=== PATIENT | female | born 1935 | race Caucasian/White ===

== ENCOUNTER 2016-06-25 11:47 | Inpatient (IN) | payer OTHER ==
[2016-06-25] MEDS ORDERED: LOPRESSOR IVP STA (11:59)
[2016-06-25] MEDS ORDERED: SOLU-MEDROL 125 MG 250 MG in SODIUM CHLORIDE 50 ML IV ONE (11:59)
[2016-06-25] MEDS ORDERED: SOLU-MEDROL 125 MG ONE (12:03)
[2016-06-25] MEDS ORDERED: SOLU-MEDROL 125 MG IVP STA (12:12)
[2016-06-25 12:13] LABS: BASOPHILS % (AUTO) 0.2 % (0.0-3.0); HEMATOCRIT 34.1 % (37.0-47.0); HEMOGLOBIN 11.5 g/dl (12.0-16.0); IMMATURE GRANULOCYTE % (AUTO) 0.6 % (0.0-5.0); LYMPHOCYTES % (AUTO) 5.8 (10.0-50.0); MEAN CORPUSCULAR HEMOGLOBIN 29.4 pg (27.0-31.0); MEAN CORPUSCULAR HGB CONC 33.7 (31.8-35.4); MEAN CORPUSCULAR VOLUME 87.2 fl (81.0-99.0); MONOCYTES # (AUTO) 1.7 K/uL (0.4-2.0); NEUTROPHILS # (AUTO) 13.8 K/ul (2.0-6.9); NEUTROPHILS % (AUTO) 83.4; PLATELET COUNT 292 10^3/uL (140-440); RED BLOOD COUNT 3.91 10^6/ul (4.20-5.40); WHITE BLOOD COUNT 16.52 K/ul (4.6-10.2)
--- NOTE | 2016-06-25 12:22 | DI ---
EXAM: Single view of the chest. History: Short of breath Comparison: Chest radiograph 04/20/2016 Findings: Heart is mildly enlarged. Atherosclerotic vascular calcifications. No definite acute in filtrates. No appreciable pleural fluid and no pneumothorax. No acute osseous abnormalities. Impression: Mild cardiomegaly without acute disease in the chest.
[2016-06-25 12:38] LABS: PARTIAL THROMBOPLASTIN TIME 31.1 SEC (23.9-40.0); PROTHROMBIN TIME 11.4 SEC (9.3-11.0)
[2016-06-25 12:52] LABS: ALBUMIN 3.5 g/dL (3.4-5.0); ALBUMIN/GLOBULIN RATIO 0.83; ANION GAP 18.1; BILIRUBIN,TOTAL 0.95 mg/dL (0.00-1.20); BUN/CREATININE RATIO 16.98; CALCIUM 10.8 mg/dL (8.2-10.2); CREATININE 1.59 mg/dL (0.60-1.30); POTASSIUM 4.1 mmol/L (3.5-5.10); TOTAL PROTEIN 7.7 g/dL (5.8-8.1); TROPONIN I 0.024 ng/ml (0.0000-0.4000)
--- NOTE | 2016-06-25 14:06 | ED.PDOC ---
General ED Provider: Dr. ARIN FRIEDMAN Chief Complaint: Shortness of Air Stated Complaint: palpitation Time Seen by Physician: 11:52 Mode of Arrival: Ambulance Information Source: Patient, EMT Exam Limitations: No limitations Primary Care Provider: PITER OSMAN Nursing and Triage Documentation Reviewed and Agree: Yes Cardiovascular Complaint Exam - Palpitations Complaint/Exam Onset/Duration: 1 day Symptoms Are: Still present Timing: Constant Initial Severity: Moderate Current Severity: Moderate Character: Reports: Fast, Irregular Aggravating: Reports: Exertion, Rest, Position Alleviating: Reports: Rest Associated Signs and Symptoms: Reports: Lightheadedness, Shortness of breath. Denies: Dizziness, Syncope, Chest pain, Diaphoresis, Nausea, Vomiting Related History: Similar episode Cardiac Risk Factors: Reports: Diabetes, CAD Pulmonary Embolism Risk Factors: Reports: Bedrest Thyroid Exam: Normal Differential Diagnoses: CAD, CHF, Hypoxia, Paroxysmal SVT Quality Indicators for AMI: EKG in 10min. Quality Indicators for Cardiac Chest Pain: EKG in 10min. Quality Indicator For Non-Traumatic Chest Pain/Syncope: EKG Performed Review of Systems - Review Of Systems Constitutional: Reports: Malaise, Weakness Eyes: Reports: No symptoms Ears, Nose, Mouth, Throat: Reports: No symptoms Respiratory: Reports: Cough, Short of air Cardiac: Reports: Palpitations GI: Reports: No symptoms : Reports: No symptoms Musculoskeletal: Reports: No symptoms Skin: Reports: No symptoms Neurological: Reports: No symptoms Endocrine: Reports: No symptoms Hematologic/Lymphatic: Reports: No symptoms All Other Systems: Reviewed and Negative Past Medical History - Past Medical History Endocrine: Reports: DM 2 Cardiovascular: Reports: MA Respiratory: Reports: COPD, Asthma Hematological: Reports: None Gastrointestinal: Reports: None Genitourinary: Reports: None Neuro/Psych: Reports: None Musculoskeletal: Reports: None Cancer: Reports: None Last Menstrual Period: n/a Other Pertinent Past Medical History: , hystrectomy, carpal tunnelDM MA COPD ASTH - Surgical History General Surgical History: Reports: Hysterectomy, , Orthopedic (carpal tunnel) - Family History Family History: Reports: Unknown - Social History Smoking Status: Current every day smoker, Heavy tobacco smoker Hx Substance Use: No Alcohol Screening: None Physical Exam - Physical Exam Appearance: Ill-appearing Ill-appearing: Mild Pain Distress: Mild Eyes: VESNA, EOMI, Conjunctiva clear ENT: Ears normal, Nose normal, Oropharynx normal Respiratory: Rhonchi Cardiovascular: Irregular rhythm, Tachycardia GI/: Soft, Nontender, No masses, Bowel sounds normal, No Organomegaly Musculoskeletal: Normal strength, ROM intact, No edema, No calf tenderness Skin: Warm, Dry, Normal color Neurological: Sensation intact, Motor intact, Reflexes intact, Cranial nerves intact, Alert, Oriented Psychiatric: Affect appropriate, Mood appropriate Interpretation - Radiology Interpretation Radiology Interpretation By: Radiologist Radiology Results: No acute changes (atraial flutter with variable rate) Critical Care Note - Critical Care Note Total Time (mins): 0 Course - Course Hematology/Chemistry: 06/25/16 12:10 06/25/16 12:10 Orders, Labs, Meds: Lab Review 06/25/16 12:10 WBC 16.52 H RBC 3.91 L Hgb 11.5 L Hct 34.1 L MCV 87.2 MCH 29.4 MCHC 33.7 RDW Coeff of Geraldo 16.4 H Plt Count 292 Immature Gran % (Auto) 0.6 Neut % (Auto) 83.4 Lymph % (Auto) 5.8 L [place] % (Auto) 10.0 Eos % (Auto) 0.0 Baso % (Auto) 0.2 Immature Gran # (Auto) 0.1 Neut # 13.8 H Lymph # 1.0 [place] # 1.7 Eos # 0.0 Baso # 0.0 PT 11.4 H INR 1.11 APTT 31.1 Sodium 137 Potassium 4.1 Chloride 95 L Carbon Dioxide 28 Anion Gap 18.1 BUN 27 H Creatinine 1.59 H Estimated GFR (MDRD) 31.00 BUN/Creatinine Ratio 16.98 Glucose 173 H Lactic Acid 18.5 Calcium 10.8 H Total Bilirubin 0.95 AST 11 L ALT 11 L Alkaline Phosphatase 113 Total Creatine Kinase 70 Troponin I 0.0240 Total Protein 7.7 Albumin 3.5 Globulin 4.2 Albumin/Globulin Ratio 0.83 Free T4 1.20 H Orders Category Date Time Status EKG-(ED ONLY) Stat CARDIO 06/25/16 11:58 Completed EKG-(ED ONLY) Stat CARDIO 06/25/16 13:00 Completed ED IV/MEDIPORT/POWERPORT .ONCE EMERGENCY 06/25/16 11:58 Active BLOOD CULTURE Stat LAB 06/25/16 12:10 Received CBC W/ AUTO DIFF Stat LAB 06/25/16 12:10 Completed COMPREHENSIVE METABOLIC PANEL Stat LAB 06/25/16 12:10 Completed CREATINE KINASE Stat LAB 06/25/16 12:10 Completed FREE T4 (FREE THYROXINE) Stat LAB 06/25/16 12:10 Completed LACTIC ACID Stat LAB 06/25/16 12:10 Completed PARTIAL THROMBOPLASTIN TIME Stat LAB 06/25/16 12:10 Completed PT WITH INR Stat LAB 06/25/16 12:10 Completed TROPONIN I Stat LAB 06/25/16 12:10 Completed 0.9 % Sodium Chloride [Saline Flush] MEDS 06/25/16 11:58 Ordered 1 syr IVF PRN PRN Methylprednisolone Sod Succ/Pf [Solu-Medrol 125 mg] MEDS 06/25/16 12:03 Discontinued 125 mg .ROUTE .STK-MED ONE Methylprednisolone Sod Succ/Pf [Solu-Medrol 125 mg] MEDS 06/25/16 12:12 Discontinued 125 mg IVP ONCE STA Metoprolol Tartrate [Lopressor] MEDS 06/25/16 11:59 Discontinued 2 mg IVP ONCE STA CHEST, 1V AP ONLY Stat RADS 06/25/16 11:57 Completed Medications Generic Name Dose Route Start Last Admin Trade Name Freq PRN Reason Stop Dose Admin Sodium Chloride 1 syr 06/25/16 11:58 06/25/16 12:17 Saline Flush IVF 1 syr PRN PRN Administration To flush IV Discontinued Medications Generic Name Dose Route Start Last Admin Trade Name Freq PRN Reason Stop Dose Admin Methylprednisolone Sodium Succinate 125 mg 06/25/16 12:12 06/25/16 12:14 Solu-Medrol 125 Mg IVP 06/25/16 12:13 125 mg ONCE STA Administration Metoprolol Tartrate 2 mg 06/25/16 11:59 06/25/16 12:15 Lopressor IVP 06/25/16 12:00 2 mg ONCE STA Administration Vital Signs: Temp Pulse Resp BP Pulse Ox 06/25/16 11:48 100.0 F H 132 H 28 H 148/96 H 94 L AMANDEEP Risk Score AMANDEEP Risk Score: Risk Score Odds of by 30D 0 0.1 (0.1-0.2) 1 0.3 (0.2-0.3) 2 0.4 (0.3-0.5) 3 0.7 (0.6-0.9) 4 1.2 (1.0-1.5) 5 2.2 (1.9-2.6) 6 3.0 (2.5-3.6) 7 4.8 (3.8-6.1) Departure - Departure Time of Disposition: 14:08 (spoke to hospitalist the 12 LEAD IS POSTIVE FOR FLUTTER WAVE IN V1 WITH VARIABLE RATE, M.A.T WAS CONSIDERED BUT THE P WAVES APPEAR FLUTTER LIKE UNIFORM ) Disposition: ADMITTED INPATIENT Discharge Problem: Atrial flutter Qualifiers: Atrial flutter type: unspecified Qualifier Code: (I48.92) Unspecified atrial flutter Instructions: Palpitations (ED), Premature Atrial Contractions (ED) Condition: Good Pt referred to PMD for follow-up: Yes (shaun epps) Additional Instructions: Please call your Family Physician as soon as possible to schedule a follow-up appointment. Allergies/Adverse Reactions: Allergies No Known Allergies Allergy (Verified 06/25/16 11:52) Home Medications: Ambulatory Orders Albuterol Sulfate [Ventolin Hfa] 1 inh IH QID 04/02/16 Allopurinol 200 mg PO DAILY 04/02/16 Apixaban [Eliquis] 2.5 mg PO BID 04/02/16 Calcium Carbonate/Vitamin D3 [Calcium 1,000 + D3 Caplet] 2 tab PO DAILY Clopidogrel Bisulfate [Plavix] 75 mg PO DAILY 04/02/16 Diltiazem HCl [Cardizem Cd] 180 mg PO DAILY 04/02/16 Ferrous Sulfate, Dried [Iron] 160 mg PO DAILY 04/02/16 Furosemide [Lasix] 40 mg PO DAILY 04/02/16 Metoprolol Tartrate [Lopressor] 50 mg PO BID 04/02/16 Simvastatin [Zocor] 10 mg PO BEDTIME 04/02/16 Sitagliptin Phosphate [Januvia] 50 mg PO BEDTIME 04/02/16 Fluticasone/Salmeterol 500/50 [Advair 500-50 Diskus] 1 puff IH BID 04/03/16 Bisacodyl [Laxative] 10 mg PO BEDTIME PRN 04/04/16 Guaifenesin [Mucinex] 600 mg PO BID PRN 04/04/16 Disposition Discussed With: Patient
[2016-06-25] MEDS ORDERED: HUMULIN R SUBCUT ONE (14:16)
[2016-06-25 14:30] LABS: ABG BASE EXCESS 5 (-2.0-2.0); ABG HCO3 28.4 (22.0-26.0); ABG PCO2 28.1 mmHg (35-45); ABG TCO2 30 (22.0-28.0)
[2016-06-25] MEDS: SODIUM CHLORIDE 1,000 ML IV SCH (15:00)
[2016-06-25] MEDS ORDERED: DUONEB NEB STA (15:03)
[2016-06-25 15:24] VITALS: BMI 24.4
[2016-06-25 15:45] LABS: FLU INTERNAL QC INTERNAL QC VALID; RAPID FLU A NEGATIVE (NEGATIVE); RAPID FLU B NEGATIVE (NEGATIVE)
[2016-06-25] MEDS ORDERED: ROCEPHIN ONE (16:20)
[2016-06-25] MEDS: ROCEPHIN 1 GM in SODIUM CHLORIDE 50 ML IV SCH (16:24)
[2016-06-25] MEDS: HUMULIN R SUBCUT PRN ×2 (16:56→21:00)
[2016-06-25] MEDS ORDERED: DUONEB NEB ONE (17:05)
[2016-06-25] MEDS: DUONEB NEB SCH ×2 (17:05→23:10)
[2016-06-25] MEDS ORDERED: NON-FORMULARY MEDICATION (Apixaban [Eliquis] 2.5 MG) PO SCH (21:00)
[2016-06-25] MEDS ORDERED: ELIQUIS ONE (21:11)
[2016-06-25] MEDS: LOPRESSOR PO SCH (21:14)
[2016-06-25] MEDS: SOLU-MEDROL 125 MG IVP SCH (21:16)
[2016-06-25 21:25] LABS: TROPONIN I 0.036 ng/ml (0.0000-0.4000)
[2016-06-25] MEDS: ZOCOR PO SCH (22:46)
[2016-06-26] MEDS: SODIUM CHLORIDE 1,000 ML IV SCH ×3 (05:05→21:17)
[2016-06-26 05:18] LABS: BASOPHILS % (AUTO) 0.2 % (0.0-3.0); HEMATOCRIT 32.3 % (37.0-47.0); HEMOGLOBIN 10.6 g/dl (12.0-16.0); IMMATURE GRANULOCYTE % (AUTO) 0.5 % (0.0-5.0); LYMPHOCYTES # (AUTO) 0.6 K/uL (0.60-3.4); LYMPHOCYTES % (AUTO) 4.3 (10.0-50.0); MEAN CORPUSCULAR HEMOGLOBIN 28.6 pg (27.0-31.0); MEAN CORPUSCULAR HGB CONC 32.8 (31.8-35.4); MEAN CORPUSCULAR VOLUME 87.3 fl (81.0-99.0); MONOCYTES # (AUTO) 0.4 K/uL (0.4-2.0); MONOCYTES % (AUTO) 3.3 (0-10); NEUTROPHILS # (AUTO) 11.8 K/ul (2.0-6.9); NEUTROPHILS % (AUTO) 91.7; PLATELET COUNT 272 10^3/uL (140-440); WHITE BLOOD COUNT 12.88 K/ul (4.6-10.2)
[2016-06-26] MEDS: DUONEB NEB SCH ×4 (05:43→23:25)
[2016-06-26 05:50] LABS: TROPONIN I 0.04 ng/ml (0.0000-0.4000)
[2016-06-26] MEDS: HUMULIN R SUBCUT PRN ×3 (06:12→18:14)
[2016-06-26] MEDS ORDERED: COREG PO SCH (08:30)
[2016-06-26] MEDS: ROCEPHIN 1 GM in SODIUM CHLORIDE 50 ML IV SCH (08:32)
[2016-06-26] MEDS: LOPRESSOR PO SCH ×2 (08:33→21:11)
[2016-06-26] MEDS: PLAVIX PO SCH (08:33)
[2016-06-26] MEDS: ELIQUIS PO SCH ×2 (08:33→21:11)
[2016-06-26] MEDS ORDERED: CARDIZEM CD PO SCH (09:00)
[2016-06-26] MEDS ORDERED: LASIX TAB PO SCH (09:00)
--- NOTE | 2016-06-26 09:46 | HP ---
DATE OF SERVICE: 06/25/16 CHIEF COMPLAINT: Shortness of breath. HISTORY OF PRESENT ILLNESS: This is an 80-year-old female, who has been having cough and congestion, productive/nonproductive cough getting worse gradually and started having palpitations, increased heart rate so came to the emergency room today. She was seen by Dr. Padlila. White count was 16,000. D. dimer 1.11. ABG showed pH 7.428 , pc02 28.1, p02 64.0. Lactic acid negative. Chest x-ray did not show any acute findings but after giving the patient Solu-Medrol dose by Dr. Padilla, heart rate was 132 with rapid ventricular rate with atrial flutter. At that time, the patient is admitted to the hospital with COPD exacerbation secondary to bronchitis and rapid atrial fibrillation. REVIEW OF SYSTEMS: CONSTITUTIONAL: Weakness, tiredness. No fever, no chills. HEENT: Normal. ENDOCRINE: No weight gain; no weight loss. CVS: No chest pain. No PND, no orthopnea. Palpitations. Shortness of breath. RESPIRATORY: Cough and congestion. No hemoptysis. GI: No nausea, no vomiting. No abdominal pain. No melena. : No hematuria. No polyuria. MUSCULOSKELETAL: No joint swelling. PSYCHIATRIC: Not anxious. No depression. No suicidal thoughts. No homicidal thoughts. SKIN: Intact, no open lesions. PAST MEDICAL HISTORY: 1. Coronary artery disease, 89 2. Atrial fibrillation on Eliquis 3. COPD 4. Hypothyroidism 5. Hypertension 6. Dyslipidemia 7. Gout PAST SURGICAL HISTORY: 1. Complete hysterectomy, 1989 2. Cataracts 3. Tonsillectomy PERSONAL HISTORY: Smokes tobacco. No alcohol, no drugs. FAMILY HISTORY: Significant for cancer. MEDICATIONS: (HOME) 1. Zocor 2. Lasix 3. Iron 4. Cardizem 5. Calcium 6. Eliquis 7. Allopurinol 8. Ventolin 9. Januvia 10. Plavix 11. Advair 12. Mucinex 13. Laxative ALLERGIES: NKDA PHYSICAL EXAMINATION: V/S: BP 148/96, respiratory rate 28, heart rate 94, temperature 100, pulse rate 132. HEENT: Atraumatic, normocephalic. No scleral icterus. Mucosa dry. NECK: Supple. No JVD, no bruit. No lymphadenopathy. No thyromegaly. HEART: S1, S2 normal. No murmur. No cyanosis or clubbing. No ascites. LUNGS: Decreased entry with basilar crackles, mild expiratory wheeze. No rales or rhonchi. ABDOMEN: Soft, nontender. Bowel sounds are active. No CVA tenderness. No rigidity or guarding. EXTREMITIES: No cyanosis, clubbing or pedal edema. MUSCULOSKELETAL: Normal joints, no swelling. NEUROLOGIC: The patient is awake, alert. SKIN: Intact; no open lesions. LYMPHATIC: No lymph nodes palpable. LABS: Sodium 137, potassium 4.1, chloride 95, bicarb 28, BUN 27, creatinine 1.59, glucose 173. White count 16.52, hemoglobin 11.5, hematocrit 34.1, platelet count 292. ASSESSMENT: 1. COPD EXACERBATION SECONDARY TO BRONCHITIS 2. RAPID ATRIAL FIBRILLATION WITH RAPID VENTRICULAR RATE 3. HYPERTENSION 4. DIABETES MELLITUS 5. DYSLIPIDEMIA 6. OSTEOARTHRITIS 7. COPD PLAN: 1. Admit the patient to the regular floor. 2. CBC, CMP today and daily. 3. Cardiac enzymes and troponin. 4. Rocephin 1 gm daily. 5. Duonebs q.6hr. 6. Solu-Medrol 60 mg q.12hr. 7. IV fluids 75 mL/hr. 8. BNP. 9. Rapid flu. 10. Will follow with the patient in daily rounds. TIME SPENT: More than 65 minutes. MTDD
[2016-06-26] MEDS: ZITHROMAX 500 MG in SODIUM CHLORIDE 250 ML IV SCH (09:54)
[2016-06-26] MEDS: SOLU-MEDROL 125 MG IVP SCH ×2 (09:54→21:12)
[2016-06-26 10:18] LABS: ALBUMIN 3.1 g/dL (3.4-5.0); ALBUMIN/GLOBULIN RATIO 0.94; ANION GAP 15.1; BILIRUBIN,TOTAL 0.44 mg/dL (0.00-1.20); BUN/CREATININE RATIO 22.3; CREATININE 1.3 mg/dL (0.60-1.30); POTASSIUM 4.1 mmol/L (3.5-5.10); TOTAL PROTEIN 6.4 g/dL (5.8-8.1)
--- NOTE | 2016-06-26 13:58 | PCM.PROG ---
Attending Provider: ATTENDING PROVIDER: Dr. MAL MC DATE OF SERVICE: 06/26/16 SUBJECTIVE: This 80 year old WHITE/ F was hospitalized 06/25/16. The patient was admitted with atrial flutter. We will obtain an echocardiogram. She complains of cough and congestion. She has shortness of breath on exertion. No PND, no orthopnea. No fever no chills. The patient states her daughter and is wanting to go to her today. REVIEW OF SYSTEMS: CONSTITUTIONAL: No fever, no chills. ENDOCRINE: No weight loss or weight gain. HEENT: No sinus drainage, no sore throat. CVS: No angina symptoms. No CHF symptoms. No palpitations. No atypical chest pain for CAD. shortness of breath. RESPIRATORY: Cough, no hemoptysis. GI: No melena. No abdominal pain. No nausea, no vomiting. : No hematuria. No polyuria. SKIN: No rash. No wounds. MUSCULOSKELETAL: No pain. FIRE OPERATIONS FORESTER: No blackout, no dizziness. No headache. No double vision. PSYCHIATRIC: Not anxious; no depression. No suicidal thoughts. No homicidal thoughts. PHYSICAL EXAMINATION: GENERAL: Lying in bed in no distress. VITAL SIGNS: Temperature 97.4 F, Pulse 116, Respiratory Rate 21, BP 120/65, Pulse Ox 90% HEENT: Normocephalic, atraumatic. Mucosa is dry, pallor positive. NECK: No JVP, no carotid bruit. No lymphadenopathy. CARDIAC: S1, S2, no S3. No murmur, gallop or regurgitation. LUNGS: Decreased entry with crackles and wheezing. ABDOMEN: Soft, non-tender. Bowel sounds active. No rigidity, guarding or CVA tenderness. EXTREMITIES: No clubbing, cyanosis or edema. NEUROLOGIC: Awake, alert and oriented x3. LYMPHATIC: No palpable lymph nodes SKIN: Not dry. Intact. MUSCULOSKELETAL: No joint swelling. LAB REVIEW: 06/26/16 05:00 06/26/16 05:00: WBC 12.88 H, RBC 3.70 L, Hgb 10.6 L, Hct 32.3 L, MCV 87.3, MCH 28.6, MCHC 32.8, RDW Coeff of Geraldo 16.0 H, Plt Count 272, Immature Gran % (Auto) 0.5, Neut % (Auto) 91.7, Lymph % (Auto) 4.3 L, [place] % (Auto) 3.3, Eos % (Auto) 0.0, Baso % (Auto) 0.2, Immature Gran # (Auto) 0.1, Neut # 11.8 H, Lymph # 0.6, [place] # 0.4, Eos # 0.0, Baso # 0.0, Total Creatine Kinase 57, Troponin I 0.0400 06/25/16 20:59: Total Creatine Kinase 68, Troponin I 0.0360 06/25/16 15:20: Influenza A (Rapid) Negative, Influenza B (Rapid) Negative ASSESSMENT: 1. COPD exacerbation secondary to bronchitis. 2. Atrial flutter. 3. Hypertension. 4. Dyslipidemia. 5. Acute grief (daughter just ). PLAN: 1. Echocardiogram. 2. Continue Rocephin. 3. Continue Solu-Medrol. 4. Add Azithromycin. 5. Duonebs. 6. Lovenox for DVT prophylaxis. 7. Coreg 6.125 mg twice a day. Plan and coordination of the patient's care discussed in the presence of Rotary Furnace Tender and nurse. CONDITION: Stable SCRIBED BY: PAOLA HARO Judge'S Clerk scribed while in presence of service performed by Dr. MAL MC on 06/26/16 (0809)
[2016-06-26] MEDS: ZOCOR PO SCH (21:11)
[2016-06-27 04:43] LABS: BASOPHILS % (AUTO) 0.1 % (0.0-3.0); HEMATOCRIT 31.3 % (37.0-47.0); HEMOGLOBIN 10.2 g/dl (12.0-16.0); LYMPHOCYTES # (AUTO) 0.8 K/uL (0.60-3.4); LYMPHOCYTES % (AUTO) 5.4 (10.0-50.0); MEAN CORPUSCULAR HEMOGLOBIN 28.9 pg (27.0-31.0); MEAN CORPUSCULAR HGB CONC 32.6 (31.8-35.4); MEAN CORPUSCULAR VOLUME 88.7 fl (81.0-99.0); MONOCYTES # (AUTO) 0.5 K/uL (0.4-2.0); MONOCYTES % (AUTO) 3.6 (0-10); NEUTROPHILS # (AUTO) 12.5 K/ul (2.0-6.9); NEUTROPHILS % (AUTO) 89.9; PLATELET COUNT 323 10^3/uL (140-440); RED BLOOD COUNT 3.53 10^6/ul (4.20-5.40); WHITE BLOOD COUNT 13.86 K/ul (4.6-10.2)
[2016-06-27] MEDS: DUONEB NEB SCH ×3 (04:57→17:28)
[2016-06-27 05:02] LABS: ALBUMIN 2.9 g/dL (3.4-5.0); ALBUMIN/GLOBULIN RATIO 0.78; ANION GAP 13.9; BILIRUBIN,TOTAL 0.3 mg/dL (0.00-1.20); BUN/CREATININE RATIO 28.18; CREATININE 1.49 mg/dL (0.60-1.30); POTASSIUM 3.9 mmol/L (3.5-5.10); TOTAL PROTEIN 6.6 g/dL (5.8-8.1)
[2016-06-27] MEDS: HUMULIN R SUBCUT PRN ×3 (05:48→23:19)
[2016-06-27] MEDS ORDERED: LASIX TAB PO SCH (06:30)
[2016-06-27] MEDS ORDERED: CARDIZEM CD PO SCH (09:00)
[2016-06-27] MEDS: DUONEB NEB PRN ×2 (09:18→22:14)
[2016-06-27] MEDS: CARDIZEM CD PO SCH (09:20)
[2016-06-27] MEDS: ELIQUIS PO SCH ×2 (09:20→20:32)
[2016-06-27] MEDS: PLAVIX PO SCH (09:21)
[2016-06-27] MEDS: ROCEPHIN 1 GM in SODIUM CHLORIDE 50 ML IV SCH (09:21)
[2016-06-27] MEDS: LOPRESSOR PO SCH ×2 (09:21→20:33)
[2016-06-27] MEDS: SOLU-MEDROL 125 MG IVP SCH ×2 (09:25→20:31)
[2016-06-27] MEDS: ZITHROMAX 500 MG in SODIUM CHLORIDE 250 ML IV SCH (09:50)
--- NOTE | 2016-06-27 10:18 | PCM.PROG ---
Attending Provider: ATTENDING PROVIDER: Dr. MAL MC DATE OF SERVICE: 06/27/16 SUBJECTIVE: This 80 year old WHITE/ F was hospitalized 06/25/16. The patient states she continues to have cough and congestion. Cough is productive of a greenish-yellow sputum. She states it hurts to cough. The patient is in atrial fibrillation. REVIEW OF SYSTEMS: CONSTITUTIONAL: No fever, no chills. ENDOCRINE: No weight loss or weight gain. HEENT: No sinus drainage, no sore throat. CVS: No angina symptoms. No CHF symptoms. No palpitations. No atypical chest pain for CAD. No shortness of breath at rest. RESPIRATORY: Cough and congestion. No hemoptysis. GI: No melena. No abdominal pain. No nausea, no vomiting. : No hematuria. No polyuria. SKIN: No rash. No wounds. MUSCULOSKELETAL: No pain. VISUAL EDUCATOR: No blackout, no dizziness. No headache. No double vision. PSYCHIATRIC: Not anxious; no depression. No suicidal thoughts. No homicidal thoughts. PHYSICAL EXAMINATION: GENERAL: Lying in bed in no distress. VITAL SIGNS: Temperature 96.8 F, Pulse 93, Respiratory Rate 20, BP 141/85, Pulse Ox 91% HEENT: Normocephalic, atraumatic. Mucosa is dry, pallor positive. NECK: No JVP, no carotid bruit. No lymphadenopathy. CARDIAC: S1, S2, no S3. No murmur, gallop or regurgitation. LUNGS: Decreased entry with crackles, wheezing. ABDOMEN: Soft, non-tender. Bowel sounds active. No rigidity, guarding or CVA tenderness. EXTREMITIES: No clubbing, cyanosis or edema. NEUROLOGIC: Awake, alert and oriented x3. LYMPHATIC: No palpable lymph nodes SKIN: Not dry. Intact. MUSCULOSKELETAL: No joint swelling. LAB REVIEW: 06/27/16 04:39 06/27/16 04:39 06/27/16 04:39: WBC 13.86 H, RBC 3.53 L, Hgb 10.2 L, Hct 31.3 L, MCV 88.7, MCH 28.9, MCHC 32.6, RDW Coeff of Geraldo 16.1 H, Plt Count 323, Immature Gran % (Auto) 1.0, Neut % (Auto) 89.9, Lymph % (Auto) 5.4 L, [place] % (Auto) 3.6, Eos % (Auto) 0.0, Baso % (Auto) 0.1, Immature Gran # (Auto) 0.1, Neut # 12.5 H, Lymph # 0.8, [place] # 0.5, Eos # 0.0, Baso # 0.0, Sodium 135 L, Potassium 3.9, Chloride 100, Carbon Dioxide 25, Anion Gap 13.9, BUN 42 H, Creatinine 1.49 H, Estimated GFR ( MDRD) 34.00, BUN/Creatinine Ratio 28.18, Glucose 161 H, Calcium 10.0, Total Bilirubin 0.30, AST 33, ALT 27, Alkaline Phosphatase 97, Total Protein 6.6, Albumin 2.9 L, Globulin 3.7, Albumin/Globulin Ratio 0.78 06/26/16 05:00: Sodium 135 L, Potassium 4.1, Chloride 97 L, Carbon Dioxide 27, Anion Gap 15.1, BUN 29 H, Creatinine 1.30, Estimated GFR (MDRD) 39.00, BUN/ Creatinine Ratio 22.30, Glucose 172 H, Calcium 10.0, Total Bilirubin 0.44, AST 11 L, ALT 11 L, Alkaline Phosphatase 97, Total Protein 6.4, Albumin 3.1 L, Globulin 3.3, Albumin/Globulin Ratio 0.94 ASSESSMENT: 1. COPD exacerbation secondary to bronchitis. 2. Atrial flutter. 3. Hypertension. 4. Dyslipidemia. 5. Acute grief (daughter just ). PLAN: 1. Continue Duonebs 2. Continue Rocephin 3. Continue Solu-Medrol Plan and coordination of the patient's care discussed in the presence of Supervisor Dried Yeast and nurse. EDUCATION: CONDITION: SCRIBED BY: PAOLA HARO, Spooling Machine Operator scribed while in presence of service performed by Dr. MAL MC on 06/27/16 (0802)
[2016-06-27] MEDS: SODIUM CHLORIDE 1,000 ML IV SCH (14:52)
[2016-06-27] MEDS: ZOCOR PO SCH (20:33)
[2016-06-28] MEDS: DUONEB NEB SCH ×3 (00:34→11:05)
[2016-06-28] MEDS: SODIUM CHLORIDE 1,000 ML IV SCH ×3 (03:34→10:43)
[2016-06-28 05:08] LABS: BASOPHILS % (AUTO) 0.1 % (0.0-3.0); HEMATOCRIT 30.9 % (37.0-47.0); HEMOGLOBIN 9.9 g/dl (12.0-16.0); IMMATURE GRANULOCYTE % (AUTO) 0.9 % (0.0-5.0); LYMPHOCYTES # (AUTO) 0.7 K/uL (0.60-3.4); LYMPHOCYTES % (AUTO) 7.2 (10.0-50.0); MEAN CORPUSCULAR HEMOGLOBIN 28.3 pg (27.0-31.0); MEAN CORPUSCULAR VOLUME 88.3 fl (81.0-99.0); MONOCYTES # (AUTO) 0.4 K/uL (0.4-2.0); MONOCYTES % (AUTO) 3.9 (0-10); NEUTROPHILS # (AUTO) 8.7 K/ul (2.0-6.9); NEUTROPHILS % (AUTO) 87.9; PLATELET COUNT 347 10^3/uL (140-440); WHITE BLOOD COUNT 9.93 K/ul (4.6-10.2)
[2016-06-28 05:18] LABS: ALBUMIN 2.9 g/dL (3.4-5.0); ALBUMIN/GLOBULIN RATIO 0.85; BILIRUBIN,TOTAL 0.3 mg/dL (0.00-1.20); BUN/CREATININE RATIO 31.15; CALCIUM 9.6 mg/dL (8.2-10.2); CREATININE 1.38 mg/dL (0.60-1.30); TOTAL PROTEIN 6.3 g/dL (5.8-8.1)
[2016-06-28] MEDS: HUMULIN R SUBCUT PRN (05:46)
[2016-06-28 06:07] VITALS: BP 158/77; TEMP 97.4
[2016-06-28] MEDS ORDERED: LASIX TAB PO SCH (06:30)
[2016-06-28] MEDS: ROCEPHIN 1 GM in SODIUM CHLORIDE 50 ML IV SCH (08:53)
[2016-06-28] MEDS: SOLU-MEDROL 125 MG IVP SCH (08:54)
[2016-06-28] MEDS: CARDIZEM CD PO SCH (08:55)
[2016-06-28] MEDS: LOPRESSOR PO SCH (08:55)
[2016-06-28] MEDS: ELIQUIS PO SCH (08:55)
[2016-06-28] MEDS: PLAVIX PO SCH (08:55)
[2016-06-28] MEDS: ZITHROMAX 500 MG in SODIUM CHLORIDE 250 ML IV SCH (09:52)
--- NOTE | 2016-06-28 09:57 | CM.DICTOOL ---
ADMISSION: 06/25/16 14:12 DISCHARGE: 06/28/16 DATE OF SERVICE: 06/28/16 FINAL DIAGNOSIS ATRIAL FLUTTER COPD/BRONCHITIS, ACUTE (SEES DR. 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 W[place]SJELANI, [place]) LAST VITALS Temp Pulse Resp BP Pulse Ox 97.4 F L 84 16 158/77 H 98 06/28/16 06:00 06/28/16 06:00 06/28/16 06:00 06/28/16 06:00 06/28/16 06:00 ACTIVE HOME MEDICATIONS Apixaban (Eliquis) 2.5 mg PO BID [facility] Last Admin: 06/28/16 08:55 Dose: 2.5 mg Bisacodyl 10 mg PO BEDTIME PRN Calcium Carbonate/Vitamin D3 2 tabs PO DAILY Clopidogrel Bisulfate (Plavix) 75 mg PO DAILY [facility] Last Admin: 06/28/16 08:55 Dose: 75 mg Diltiazem HCl (Cardizem Cd) 240 mg PO DAILY [facility] (increased from 180 mg po daily) Last Admin: 06/28/16 08:55 Dose: 240 mg Ferrrous Sulfate 160 mg PO DAILY Fluticasone/Sameterol 500/50 (Advair) 1 puff IH BID Furosemide (Lasix Tab) 40 mg PO [id number] [facility] (reduced from 40 mg po daily) Last Admin: 06/28/16 05:46 Dose: 40 mg Guaifenesin (Mucines) 600 mg PO BID PRN Metoprolol Tartrate (Lopressor) 50 mg PO BID [facility] Last Admin: 06/28/16 08:55 Dose: 50 mg Simvastatin (Zocor) 10 mg PO BEDTIME [facility] Last Admin: 06/27/16 20:33 Dose: 10 mg Sitagliptin Phosphate (Januvia) 25 mg PO at BEDTIME (reduced from 50 mg at bedtime) denotes medication changes made during this hospitalization that will be continued after discharge ALLERGIES No Known Allergies Allergy (Verified 06/25/16 11:52) NEW PRESCRIPTIONS: RESUME YOUR HOME MEDICATIONS PER LIST PROVIDED BY THE NURSING STAFF REDUCE YOUR JANUVIA TO 25 MG DAILY TAKE YOUR LASIX (FUROSEMIDE) 40 MG ON MONDAYS, WEDNESDAYS, FRIDAYS AND SATURDAYS ONLY INCREASE YOUR DILTIAZEM HCL (CARDIZEM CD) TO 240 MG DAILY DO NOT TAKE YOUR ALLOPURINOL UNTIL INSTRUCTED BY YOUR PRIMARY CARE PROVIDER USE YOUR OXYGEN CONTINUOUSLY (2 LITERS PER NASAL CANNULA) AT HOME TAKE YOUR NEBULIZED BREATHING TREATMENTS DIRECTED BY YOUR ART TRACER NEW PRESCRIPTIONS: KEFLEX 500 MG, TAKE ONE TABLET BY MOUTH TWICE DAILY FOR 3 (THREE DAYS) MEDROL DOSE EDMUNDO, TAKE DIRECTED WITH FOOD CARDIZEM 240 MG, TAKE ONE TABLET BY MOUTH DAILY SMOKING: SMOKING CESSATION TEACHING HAS BEEN PROVIDED DAILY ALONG WITH THE RISKS OF CONTINUATION AND BENEFITS OF COMPLETE CESSATION. THE PATIENT HAS VERBALIZED HER DESIRE TO COMPLETELY STOP SMOKING. DISEASE SPECIFIC EDUCATION: A-FLUTTER/FIB HOME MEDICATIONS NEW PRESCRIPTIONS FOLLOW UP LAB REVIEW: 06/28/16 05:01 06/28/16 05:01 06/28/16 05:01: WBC 9.93, RBC 3.50 L, Hgb 9.9 L, Hct 30.9 L, MCV 88.3, MCH 28.3 , MCHC 32.0, RDW Coeff of Geraldo 16.1 H, Plt Count 347, Immature Gran % (Auto) 0.9 , Neut % (Auto) 87.9, Lymph % (Auto) 7.2 L, [place] % (Auto) 3.9, Eos % (Auto) 0.0 , Baso % (Auto) 0.1, Immature Gran # (Auto) 0.1, Neut # 8.7 H, Lymph # 0.7, [place] # 0.4, Eos # 0.0, Baso # 0.0, Sodium 137, Potassium 4.0, Chloride 102, Carbon Dioxide 25, Anion Gap 14.0, BUN 43 H, Creatinine 1.38 H, Estimated GFR ( MDRD) 37.00, BUN/Creatinine Ratio 31.15, Glucose 147 H, Calcium 9.6, Total Bilirubin 0.30, AST 32, ALT 32, Alkaline Phosphatase 82, Total Protein 6.3, Albumin 2.9 L, Globulin 3.4, Albumin/Globulin Ratio 0.85 PLAN: DISCHARGE HOME TODAY RETURN TO SEE PITER OSMAN AT [facility] SOON POSSIBLE RESUME YOUR HOME MEDICATIONS PER LIST PROVIDED BY THE NURSING STAFF REDUCE YOUR JANUVIA TO 25 MG DAILY TAKE YOUR LASIX (FUROSEMIDE) 40 MG ON MONDAYS, WEDNESDAYS, FRIDAYS AND SATURDAYS ONLY INCREASE YOUR CARDIZEM CD (DILTAZEM HCL) TO 240 MG DAILY DO NOT TAKE YOUR ALLOPURINOL UNTIL INSTRUCTED BY YOUR PRIMARY CARE PROVIDER USE YOUR OXYGEN CONTINUOUSLY (2 LITERS PER NASAL CANNULA) AT HOME TAKE YOUR NEBULIZED BREATHING TREATMENTS DIRECTED BY YOUR ART TRACER NEW PRESCRIPTIONS: KEFLEX 500 MG, TAKE ONE TABLET BY MOUTH TWICE DAILY FOR 3 (THREE DAYS) MEDROL DOSE EDMUNDO, TAKE DIRECTED WITH FOOD CARDIZEM (DILTAZEM HCL) 240 MG, TAKE ONE TABLET BY MOUTH DAILY ACTIVITY: GET PLENTY OF REST AT HOME. GRADUALLY INCREASE YOUR ACTIVITY LEVEL ACCORDING TO YOUR TOLERATION MONITOR AND KEEP A LOG OF YOUR BLOOD SUGARS. TAKE THE LOG TO YOUR PRIMARY CARE PROVIDER DUE TO THE REDUCED DOSE OF JANUVIA DIET: HEALTHY HEART CONSISTENT CARBS SUMMARY: THE PATIENT IS ALERT AND ORIENTED X3. SHE CURRENTLY RESIDES AT HOME ALONE. HER FAMILY MEMBERS ARE VERY SUPPORTIVE OF HER NEEDS. SHE DESIRES TO RETURN TO HER HOME AT DISCHARGE. SHE CURRENTLY HAS HOMEMAKING SERVICES THAT COME INTO HER HOME TWICE WEEKLY. THESE SERVICES WILL BE RESUMED AT DISCHARGE. SHE HAS A ROLLING WALKER, CHAIR WITH WHEELS, SHOWER CHAIR AND GRAB BARS IN HER SHOWER. SHE HAS OXYGEN ([facility]) AND NEBULIZER FOR USE AT HOME. HER SKIN TURGOR IS INTACT AND WITHOUT DECUBITUS ULCERS AT DISCHARGE. SHE IS ANXIOUS FOR DISCHARGE DUE TO THE RECENT OF HER DAUGHTER AND WANTING TO BE WITH HER FAMILY. SHE TELLS ME SHE "IS GOING HOME TODAY." SHE ASSURES ME THAT SHE WILL RETURN IF SHE HAS ANY WORSENING MEDICAL PROBLEMS AND IS AGREEABLE TO SEE HER PRIMARY CARE PROVIDER, PITER OSMAN, IN [place], [place] SOON POSSIBLE. MAL MC M.D.
--- NOTE | 2016-06-29 11:54 | DS ---
DATE OF SERVICE: 06/28/16 FINAL DIAGNOSIS: 1. COPD Exacerbation secondary to bronchitis 2. Atrial flutter 3. Acute Grief 4. CAD with history of CT 5. Paroxysmal SVT and Afib 6. Congestive heart failure 7. Hypertension 8. Dyslipidemia 9. Anemia 10.Chronic renal disease 11.Diabetes Mellitus, type 2 12.DJD spine 13. 14.Hypertension 15.Carpal tunnel syndrome 16.Cardiac [place] [address] Pittman Larissa LAST VITALS: Blood pressure 157/77, respiratory rate 16, heart rate 84, temperature 97.4, pulse ox 98. DISCHARGE INSTRUCTIONS: Resume home medication as per list provided by the nursing staff. MEDICATIONS AT DISCHARGE: Eliquis 2.5mg PO twice a day Bisacodyl 10mg PO bedtime PRN Calcium with Vitamin D Plavix Diltazem Ferrous Sulfate Advair Lopressor Zocor Januvia NEW PRESCRIPTIONS: Reduce Januvia to 25mg daily Lasix every other day Increase Diltazem HCL (Cardizem) 240mg daily Do not take Allopurinol until instructed by the primary care Use oxygen continuously 2 liters at home Keflex 500mg twice a day for 3 days Medrol Dosepak Cardizem 240mg PO daily DIET INSTRUCTIONS: Healthy Heart Consistent Carbohydrates ACTIVITY: Get plenty of rest at home. Gradually increase activity level according to toleration. SMOKING: Strictly advised not to smoke. Offered help but she wanted to quit by herself. Risks of lung cancer has been discussed. 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 HOSPITAL COURSE: Lois Guy who is a 80 year old female came to the emergency room with worsening shortness of breath, cough and congestion with yellow/green phlegm. She was seen by Dr. Padilla in the emergency room. CT scan of the chest did not show any pneumonia, showed mild cardiomegaly without acute disease in the chest. ABG showed the pH 7.48, pCO2 28.1, pO2 68.0 and D-dimer 1.11. Hematology WBC 16,000, BUN 27, creatinine 1.59, sugar was 179, first set of cardiac enzymes are negative. BNP was 180. The patient was admitted with the COPD exacerbation and bronchitis. On further questioning the patient was tearful and the patient's daughter recently at the [facility] so she is worried and crying. The patient was shaking was in atrial flutter with a rate of more than 122 to 140. I ordered the echocardiogram for the left ventricular and the right atrial enlarge or pulmonary hypertension. Dr. Morel was courteous enough to do the echocardiogram. She was given some Solu-Medrol 60mg Q 12 hours, DUO NEBS Q 6 hours, Rocephin and Azithromycin. Lovenox was not given as patient was already on the Eliquis for atrial fibrillation. With CHADS2 vasc score 1 of 4 Eliquis was given and the patient is aware of skilled nursing anticoagulation side effects GI bleed and intracranial bleed and verbalized understanding. The patient gradually started feeling better. BUN and Creatinine was getting better. Her GFR was 39 according the GFR Januvia has to be decreased to the 25mg which was done. With the given treatment the patient was a lot better and today she requested that she needs to go home. Hgb was 9.9 which dropped from 11.5 assume it is from the hemodilution. The patient's daughter's was arranged today or tomorrow so patient wanted to go home. She verbalized understanding that incase she is not feeling better that she can come back to the hospital. TIME SPENT: MORE THAN 45 MINUTES TODAY. MTDD
--- NOTE | 2016-06-30 12:24 | ECHO2D ---
Date of Exam: 06/26/16 Ordering Physician: HOSPITALIST--MAL MC Reason for Echo: A FLUTTER WITH RAPID RESPONSE M-Mode Normal Adult Results LV Dimensions Normal Adult Results AoV Opening excursions >1.6 >1.6 LVEDD-base- 3.5-5.8 4.7 Ao root dimensions 2.0-3.7 3.5 LVESD-base- 3.1-4.6 L. Atrium dimensions 1.9-3.8 5.6 Post. Wall thickness 0.8-1.1 1.3 IV septum (thickness) 0.7-1.2 1.3 Post. Wall excursion 0.72-1.3 NORMAL Septal motion NORMAL Systolic motion R. Ventricular cavity 1.5-2.0 NORMAL LVEF 60% 64% Paradoxical septal wall motion NORMAL 2-D : ENLARGED LEFT ATRIAL CAVITY--NORMAL LEFT VENTRICLE CONTRACTILITY--NORMAL VALVES--NO EFFUSION, NO THROMBUS M-MODE: MV: NORMAL AV: NORMAL TV: NORMAL PV: CHAMBER SIZE: ENLARGED LEFT ATRIAL CAVITY WALL MOTION: NORMAL PERICARDIUM: NORMAL INTERPRETATION: 1. LEFT VENTRICULAR HYPERTROPHY WITH ENLARGED LEFT ATRIAL CAVITY 2. NORMAL LEFT VENTRICULAR CONTRACTILITY 3. NORMAL VALVES MTDD
== END 2016-06-28 12:24 | disposition home or self-care (01) | DRG 191 ==
LOC: ED 11:47 → MEDSURG B 14:12
PROVIDERS: ADMIT Emergency Medicine; ATTEND Emergency Medicine
DX: J44.0 Chronic obstructive pulmonary disease with (acute) lower respiratory infection (principal); I48.92 Unspecified atrial flutter; I47.1 Supraventricular tachycardia; J20.9 Acute bronchitis, unspecified; J44.1 Chronic obstructive pulmonary disease with (acute) exacerbation; I51.7 Cardiomegaly; I48.91 Unspecified atrial fibrillation; I50.9 Heart failure, unspecified; E11.9 Type 2 diabetes mellitus without complications; I10 Essential (primary) hypertension; I27.2 Other secondary pulmonary hypertension; N28.9 Disorder of kidney and ureter, unspecified; F43.21 Adjustment disorder with depressed mood; Z63.4 Disappearance and death of family member; E78.5 Hyperlipidemia, unspecified; R06.02 Shortness of breath; I25.2 Old myocardial infarction; F17.210 Nicotine dependence, cigarettes, uncomplicated; Z79.01 Long term (current) use of anticoagulants; Z79.84 Long term (current) use of oral hypoglycemic drugs; Z79.899 Other long term (current) drug therapy
CPT/HCPCS: 36415; 80053; 82550; 82803; 82962; 83605; 83880; 84439; 84484; 85025; 85610; 85730; 87040; 87804; 93005; 93010; 94640; 96374; 96375; 99223; 99233; 99239; 99284

== ENCOUNTER 2016-09-17 09:56 | Inpatient (IN) | payer OTHER ==
[2016-09-17 10:02] VITALS: BMI 24.6
[2016-09-17] MEDS ORDERED: SODIUM CHLORIDE 1,000 ML IV STA (10:08)
[2016-09-17] MEDS ORDERED: DUONEB NEB STA (10:14)
[2016-09-17] MEDS ORDERED: ZITHROMAX 500 MG in SODIUM CHLORIDE 250 ML IV STA ×2 (10:23→12:23)
[2016-09-17] MEDS ORDERED: ROCEPHIN 1 GM in SODIUM CHLORIDE 50 ML IV STA (10:23)
--- NOTE | 2016-09-17 10:27 | DI ---
EXAM: Chest, one-view HISTORY: Chest Pain FINDINGS: Cardiac and mediastinal contours are normal. Pulmonary vasculature is normal. Lungs are clear. Atherosclerotic calcification of the aorta. Bony thorax shows no acute findings. IMPRESSION: No acute cardiopulmonary disease. No change from 06/25/2016.
[2016-09-17 10:31] LABS: BASOPHILS # (AUTO) 0.1 K/uL (0-0.2); BASOPHILS % (AUTO) 0.3 % (0.0-3.0); EOSINOPHILS % (AUTO) 0.1 % (0.0-7.0); HEMATOCRIT 36.5 % (37.0-47.0); HEMOGLOBIN 12.4 g/dl (12.0-16.0); IMMATURE GRANULOCYTE % (AUTO) 0.5 % (0.0-5.0); LYMPHOCYTES # (AUTO) 1.6 K/uL (0.60-3.4); LYMPHOCYTES % (AUTO) 10.3 (10.0-50.0); MEAN CORPUSCULAR HEMOGLOBIN 29.9 pg (27.0-31.0); MONOCYTES # (AUTO) 1.1 K/uL (0.4-2.0); MONOCYTES % (AUTO) 7.4 (0-10); NEUTROPHILS # (AUTO) 12.3 K/ul (2.0-6.9); NEUTROPHILS % (AUTO) 81.4; PLATELET COUNT 257 10^3/uL (140-440); RED BLOOD COUNT 4.15 10^6/ul (4.20-5.40); WHITE BLOOD COUNT 15.08 K/ul (4.6-10.2)
[2016-09-17] MEDS ORDERED: ROCEPHIN ONE (10:31)
[2016-09-17 10:34] LABS: ABG PCO2 36.2 mmHg (35-45); ABG PH 7.461 (7.35-7.45)
[2016-09-17 10:35] LABS: ABG BASE EXCESS 2 (-2.0-2.0); ABG HCO3 25.8 (22.0-26.0); ABG TCO2 27 (22.0-28.0)
--- NOTE | 2016-09-17 10:36 | ED.PDOC ---
General ED Provider: Dr. JASON BROOKE JR Chief Complaint: Shortness of Air Stated Complaint: INCREASING SHORTNESS OF BREATH SINCE LAST NIGHT...BROUGHT TO THIS ER BY [facility]...HAD 2 ALBUTERAL TREATMENTS EN ROUTE ...REALLY HELPED. SALINE LOCK LEFT HAND[End]99.1 116 22 96% 167/93 yellow sputum...WHEEZING NOTED LEFT LUNG[End]TREATED FOR PNEUMONIA A FEW MONTHS AGO[End ]. : 06/28/16 ADMISSION: DISCHARGE: 06/28/16 ATRIAL FLUTTER. COPD/BRONCHITIS, ACUTE (SEES DR. WALKER IN [place], [place]). GRIEF, ACUTE (DAUGHTER ON )CAD AND HISTORY OF [place],. 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 CARDIAC STENT, 2011 (DR. WALTERS[place], [place]),. Apixaban (Eliquis) 2.5 mg PO BID. Bisacodyl 10 mg PO BEDTIME PRN. Calcium Carbonate/Vitamin D3 2 tabs PO DAILY. Clopidogrel Bisulfate (Plavix) 75 mg PO DAILY. Diltiazem HCl (Cardizem Cd) 240 mg PO DAILY DANNY (increased from 180 mg po daily). Ferrrous Sulfate 160 mg PO DAILY. 500/50 (Advair) 1 puff IH BID. (Lasix Tab) 40 mg PO. (Mucines) 600 mg PO BID PRN. (Lopressor) 50 mg PO BID SCHg. Simvastatin (Zocor) 10 mg PO BEDTIME DANNY. (Januvia) 25 mg PO at BEDTIME. No Known Allergies. NEW PRESCRIPTIONS: REDUCE YOUR JANUVIA TO 25 MG DAILY. LASIX (FUROSEMIDE) 40 MG ON MON, WED, FRI AND SAT ONLY. INCREASE (CARDIZEM CD) TO 240 MG DAILY. DO NOT TAKE ALLOPURINOL UNTIL YOUR PRIMARY CARE PROVIDER. OXYGEN CONTINUOUSLY (2 LITERS ) AT HOME. NEBULIZED BREATHING TREATMENTS DIRECTED. NEW PRESCRIPTIONS: KEFLEX 500 MG, TWICE DAILY FOR 3 (THREE DAYS). MEDROL DOSE EDMUNDO, DIRECTED WITH FOOD. CARDIZEM 240 MG, ONE DAILY. SMOKING CESSATION. : 06/25/16 : Shortness of Air: DM 2: [place]: COPD, Asthma: , hystrectomy, carpal tunnelDM [place] COPD ARTH Hysterectomy, , Orthopedic (carpal tunnel). WBC 16.52 H Free T4 1.20 H. Solu-Medrol 125 Mg Metoprolol Tartrate 2 mg. 11:48 100.0 F H 132 H 28 H 148/96 H 94 L. INPATIENT:) Unspecified atrial flutter:Palpitations (ED), Premature Atrial Contractions (ED). Albuterol Sulfate [Ventolin Hfa] 1 inh IH QID. Allopurinol 200 mg PO DAILY 04/02/16. Apixaban [Eliquis] 2.5 mg PO BID 04/02/16. [Calcium 1,000 + D3 Caplet] 2 tab PO DAILY. Clopidogrel Bisulfate [Plavix] 75 mg PO DAILY. Diltiazem HCl [ Cardizem Cd] 180 mg PO DAILY. Ferrous Sulfate, Dried [Iron] 160 mg PO ANDREW. Furosemide [Lasix] 40 mg PO DAILY 04/02/16. Metoprolol Tartrate [Lopressor] 50 mg PO BID. Simvastatin [Zocor] 10 mg PO BEDTIME 04/02/16. Sitagliptin Phosphate [Januvia] 50 mg PO. Fluticasone/Salmeterol 500/50 1 puff IH BID. Bisacodyl [Laxative] 10 mg PO BEDTIME PRN. Guaifenesin [Mucinex] 600 mg PO BID PRN Time Seen by Physician: 10:34 Mode of Arrival: Ambulance Information Source: Patient, EMT Exam Limitations: No limitations Primary Care Provider: PITER OSMAN Nursing and Triage Documentation Reviewed and Agree: Yes Review of Systems - Review Of Systems Constitutional: Reports: Malaise, Weakness Eyes: Reports: No symptoms Ears, Nose, Mouth, Throat: Reports: No symptoms Respiratory: Reports: Short of air Cardiac: Reports: Chest pain (pleuritic), Edema (legs worseat ankles calf pain but not posterior not tender to compression; pain at ankles with edema) GI: Reports: No symptoms : Reports: No symptoms Musculoskeletal: Reports: No symptoms Skin: Reports: No symptoms Neurological: Reports: No symptoms Endocrine: Reports: No symptoms Hematologic/Lymphatic: Reports: No symptoms All Other Systems: Other Past Medical History - Past Medical History Endocrine: Reports: DM 2 Cardiovascular: Reports: [place] Respiratory: Reports: COPD, Asthma Hematological: Reports: None Gastrointestinal: Reports: None Genitourinary: Reports: None Neuro/Psych: Reports: None Musculoskeletal: Reports: None Cancer: Reports: None Last Menstrual Period: N/A Other Pertinent Past Medical History: , hystrectomy, carpal tunnelDM [place] COPD ASTH - Surgical History General Surgical History: Reports: Hysterectomy, , Orthopedic (carpal tunnel) - Family History Family History: Reports: Unknown - Social History Smoking Status: Current every day smoker, Heavy tobacco smoker Hx Substance Use: No Alcohol Screening: None - Immunizations Tetanus Shot up to Date: Yes Physical Exam - Physical Exam Appearance: Well-appearing Ill-appearing: Mild Pain Distress: Mild Eyes: VESNA, EOMI, Conjunctiva clear ENT: Ears normal, Nose normal, Oropharynx normal Neck: Supple Respiratory: Airway patent, Breath sounds equal, Breath sounds diminished, Rhonchi, Wheezes Cardiovascular: RRR, Pulses normal, No rub, No murmur GI/: Soft, Nontender, No masses, Bowel sounds normal, No Organomegaly Musculoskeletal: Normal strength, ROM intact, No edema, Edema (at ankles), Calf tenderness (noot to compression) Skin: Warm, Dry, Normal color Neurological: Sensation intact, Motor intact, Reflexes intact, Cranial nerves intact, Alert, Oriented Psychiatric: Affect appropriate, Mood appropriate Critical Care Note - Critical Care Note Total Time (mins): 0 Course - Course Hematology/Chemistry: 09/17/16 10:20 09/17/16 10:20 Orders, Labs, Meds: Lab Review 09/17/16 09/17/16 10:08 10:20 WBC 15.08 H RBC 4.15 L Hgb 12.4 Hct 36.5 L MCV 88.0 MCH 29.9 MCHC 34.0 RDW Coeff of Geraldo 14.4 Plt Count 257 Immature Gran % (Auto) 0.5 Neut % (Auto) 81.4 Lymph % (Auto) 10.3 [place] % (Auto) 7.4 Eos % (Auto) 0.1 Baso % (Auto) 0.3 Immature Gran # (Auto) 0.1 Neut # 12.3 H Lymph # 1.6 [place] # 1.1 Eos # 0.0 Baso # 0.1 Puncture Site Rrad O2 Saturation 89.0 L ABG pH 7.461 H ABG pCO2 36.2 ABG pO2 54.0 L* ABG HCO3 25.8 ABG Total CO2 27 ABG Base Excess 2 Shukri Test + FiO2 % 21.0 Sodium 141 Potassium 3.8 Chloride 104 Carbon Dioxide 26 Anion Gap 14.8 BUN 31 H Creatinine 1.40 H Estimated GFR (MDRD) 36.00 BUN/Creatinine Ratio 22.14 Glucose 163 H Lactic Acid 18.2 Calcium 10.7 H Total Bilirubin 0.69 AST 9 L ALT 10 L Alkaline Phosphatase 95 Total Creatine Kinase 21 Troponin I 0.0170 B-Natriuretic Peptide 217 H Total Protein 7.6 Albumin 3.8 Globulin 3.8 Albumin/Globulin Ratio 1.00 Procalcitonin 0.77 Orders Category Date Time Status ABG DRAW REQUEST Stat CARDIO 09/17/16 10:09 Completed EKG-(ED ONLY) Stat CARDIO 09/17/16 10:08 Completed NEBULIZER TREATMENT Stat CARDIO 09/17/16 10:14 Completed ED APPLY O2 .ONCE EMERGENCY 09/17/16 10:08 Active ED MORTGAGE LOAN COMPUTATION CLERK APPLIED .ONCE EMERGENCY 09/17/16 10:08 Active ED IV/MEDIPORT/POWERPORT .ONCE EMERGENCY 09/17/16 10:08 Active ABG Stat LAB 09/17/16 10:08 Completed B-TYPE NATRIURETIC PEPTIDE Stat LAB 09/17/16 10:20 Completed BLOOD CULTURE Stat LAB 09/17/16 10:20 Received CBC W/ AUTO DIFF Stat LAB 09/17/16 10:20 Completed COMPREHENSIVE METABOLIC PANEL Stat LAB 09/17/16 10:20 Completed CREATINE KINASE Stat LAB 09/17/16 10:20 Completed LACTIC ACID Stat LAB 09/17/16 10:20 Completed PROCALCITONIN Stat LAB 09/17/16 10:20 Completed SPUTUM CULTURE Stat LAB 09/17/16 10:23 Uncollected TROPONIN I Stat LAB 09/17/16 10:20 Completed 0.9 % Sodium Chloride [Saline Flush] MEDS 09/17/16 10:08 Ordered 1 syr IVF PRN PRN Ceftriaxone Sodium [Rocephin] MEDS 09/17/16 10:31 Discontinued 1 gm .ROUTE .STK-MED ONE Ceftriaxone Sodium [Rocephin] 1 gm MEDS 09/17/16 10:23 Discontinued 0.9 % Sodium Chloride [Sodium Chloride] 50 ml IV ONCE Ipratropium/Albuterol Neb [Duoneb] MEDS 09/17/16 10:14 Discontinued 1 vial NEB ONCE STA Metoprolol Tartrate [Lopressor] MEDS 09/17/16 11:34 Discontinued 50 mg PO ONCE STA Sodium Chloride 0.9% [Sodium Chloride] 1,000 ml MEDS 09/17/16 10:08 Active IV BOLUS Sodium Chloride 0.9% [Sodium Chloride] 300 ml MEDS 09/17/16 11:01 Discontinued IV BOLUS CHEST, 1V AP ONLY Stat RADS 09/17/16 10:08 Completed Medications Generic Name Dose Route Start Last Admin Trade Name Freq PRN Reason Stop Dose Admin Sodium Chloride 1,000 mls @ 35 mls/hr 09/17/16 10:08 09/17/16 10:20 Sodium Chloride IV 09/18/16 14:42 35 mls/hr BOLUS STA Administration Sodium Chloride 1 syr 09/17/16 10:08 09/17/16 10:36 Saline Flush IVF 1 syr PRN PRN Administration To flush IV Discontinued Medications Generic Name Dose Route Start Last Admin Trade Name Freq PRN Reason Stop Dose Admin Albuterol/Ipratropium 1 vial 09/17/16 10:14 09/17/16 10:30 Duoneb NEB 09/17/16 10:15 1 vial ONCE STA Administration Ceftriaxone Sodium 1 gm/ 50 mls @ 75 mls/hr 09/17/16 10:23 09/17/16 10:36 Sodium Chloride IV 09/17/16 11:02 75 mls/hr ONCE STA Administration Sodium Chloride 300 mls @ 1,000 mls/hr 09/17/16 11:01 Sodium Chloride IV 09/17/16 11:18 BOLUS STA Metoprolol Tartrate 50 mg 09/17/16 11:34 Lopressor PO 09/17/16 11:35 ONCE STA Vital Signs: Temp Pulse Resp BP Pulse Ox 09/17/16 09:56 99.1 F 116 H 22 167/93 H 96 Departure - Departure Time of Disposition: 10:58 Disposition: HOME SELF-CARE Discharge Problem: COPD exacerbation Instructions: COPD (Chronic Obstructive Pulmonary Disease) (ED), How Your Lungs Work (ED), How to Stop Smoking (ED) Condition: Good Pt referred to PMD for follow-up: Yes Additional Instructions: Zithromax antibiotic until gone given Rocephin in ER retrn if fever over 101.0 if short of breath if worsening call PMD Sunday schedule follow up ask about Atrovent STOP SMOKING Allergies/Adverse Reactions: Allergies No Known Allergies Allergy (Verified 09/17/16 10:05) Home Medications: Ambulatory Orders Albuterol Sulfate [Ventolin Hfa] 1 inh IH QID 04/02/16 Apixaban [Eliquis] 2.5 mg PO BID 04/02/16 Calcium Carbonate/Vitamin D3 [Calcium 1,000 + D3 Caplet] 2 tab PO DAILY Clopidogrel Bisulfate [Plavix] 75 mg PO DAILY 04/02/16 Ferrous Sulfate, Dried [Iron] 160 mg PO DAILY 04/02/16 Metoprolol Tartrate [Lopressor] 50 mg PO BID 04/02/16 Simvastatin [Zocor] 10 mg PO BEDTIME 04/02/16 Fluticasone/Salmeterol 500/50 [Advair 500-50 Diskus] 1 puff IH BID 04/03/16 Bisacodyl [Laxative] 10 mg PO BEDTIME PRN 04/04/16 Guaifenesin [Mucinex] 600 mg PO BID PRN 04/04/16 Cephalexin [Keflex] 500 mg PO Q12HR #6 capsule 06/28/16 Diltiazem HCl [Cardizem Cd] 240 mg PO DAILY #30 cap.er.24h 06/28/16 Furosemide [Lasix Tab] 40 mg PO MOWEFRSA #120 tablet 06/28/16 Methylprednisolone [Medrol Dosepak] 4 mg PO DIRECTED #1 tab.ds.pk 06/28/16 Sitagliptin Phosphate [Januvia] 25 mg PO BEDTIME #30 tablet 06/28/16
[2016-09-17 10:58] LABS: ALBUMIN 3.8 g/dL (3.4-5.0); ANION GAP 14.8; BILIRUBIN,TOTAL 0.69 mg/dL (0.00-1.20); BUN/CREATININE RATIO 22.14; CALCIUM 10.7 mg/dL (8.2-10.2); CREATININE 1.4 mg/dL (0.60-1.30); POTASSIUM 3.8 mmol/L (3.5-5.10); TOTAL PROTEIN 7.6 g/dL (5.8-8.1); TROPONIN I 0.017 ng/ml (0.0000-0.4000)
[2016-09-17] MEDS ORDERED: SODIUM CHLORIDE 300 ML IV STA (11:01)
[2016-09-17] MEDS ORDERED: LOPRESSOR PO STA (11:34)
[2016-09-17 12:47] LABS: FLU INTERNAL QC INTERNAL QC VALID; RAPID FLU A NEGATIVE (NEGATIVE); RAPID FLU B NEGATIVE (NEGATIVE)
--- NOTE | 2016-09-17 13:06 | CT ---
EXAM: CT brain without contrast HISTORY: Altered mental status, new confusion TECHNIQUE: Multi-slice transaxial helical with coronal and sagital reformated images COMPARISON: None FINDINGS: The midline structures are central. The ventricles and sulci are slightly prominent refl ecting some atrophy. Marked low attenuation in the periventricular white matter is nonspecific but i s likely related to chronic microvascular ischemic disease. No acute intraparenchymal or extraaxial hemorrhagic collections are detected. The calvarium is intact. Left ethmoid air cells are opacified. The other visible paranasal sinuses and mastoid air cells are clear. Vascular calcifications are noted. IMPRESSION: 1. No acute intracranial process. 2. Mild age-related involution and marked chronic microvascular ischemic disease. 3. Left posterior ethmoid air cell disease.
[2016-09-17] MEDS ORDERED: LASIX IVP STA (15:05)
[2016-09-17] MEDS ORDERED: BISACODYL 10 MG PO PRN (16:16)
[2016-09-17] MEDS ORDERED: MUCINEX PO PRN (16:16)
[2016-09-17] MEDS ORDERED: TYLENOL PO PRN (16:19)
[2016-09-17] MEDS ORDERED: MEDROL DOSEPAK PO SCH (16:30)
[2016-09-17] MEDS ORDERED: PROAIR HFA IH SCH (17:00)
[2016-09-17] MEDS: SODIUM CHLORIDE 1,000 ML IV SCH (17:41)
[2016-09-17] MEDS: DUONEB NEB SCH ×2 (18:55→23:07)
[2016-09-17] MEDS ORDERED: JANUVIA ONE ×2 (20:37→20:50)
[2016-09-17] MEDS ORDERED: ELIQUIS ONE ×2 (20:37→20:49)
[2016-09-17] MEDS: LOPRESSOR PO SCH (20:49)
[2016-09-17] MEDS: ADVAIR 500-50 DISKUS IH SCH (20:49)
[2016-09-17] MEDS: ZOCOR PO SCH (20:49)
[2016-09-17] MEDS: SOLU-MEDROL 40 MG IVP SCH (20:53)
[2016-09-17] MEDS ORDERED: NON-FORMULARY MEDICATION (Apixaban [Eliquis] 2.5 MG) PO SCH (21:00)
[2016-09-17] MEDS ORDERED: NON-FORMULARY MEDICATION (Sitagliptin Phosphate [Januvia] 25 MG) PO SCH (21:00)
[2016-09-17 22:53] LABS: TROPONIN I 0.015 ng/ml (0.0000-0.4000)
[2016-09-18] MEDS: SODIUM CHLORIDE 1,000 ML IV SCH (01:07)
[2016-09-18] MEDS: DUONEB NEB SCH ×4 (05:12→23:16)
[2016-09-18] MEDS: SOLU-MEDROL 40 MG IVP SCH ×3 (05:23→21:31)
[2016-09-18 06:04] LABS: BASOPHILS % (AUTO) 0.3 % (0.0-3.0); HEMATOCRIT 34.9 % (37.0-47.0); HEMOGLOBIN 12.1 g/dl (12.0-16.0); IMMATURE GRANULOCYTE % (AUTO) 0.5 % (0.0-5.0); LYMPHOCYTES # (AUTO) 0.8 K/uL (0.60-3.4); LYMPHOCYTES % (AUTO) 9.9 (10.0-50.0); MEAN CORPUSCULAR HEMOGLOBIN 30.3 pg (27.0-31.0); MEAN CORPUSCULAR HGB CONC 34.7 (31.8-35.4); MEAN CORPUSCULAR VOLUME 87.5 fl (81.0-99.0); MONOCYTES # (AUTO) 0.2 K/uL (0.4-2.0); NEUTROPHILS # (AUTO) 6.9 K/ul (2.0-6.9); NEUTROPHILS % (AUTO) 87.3; PLATELET COUNT 253 10^3/uL (140-440); RED BLOOD COUNT 3.99 10^6/ul (4.20-5.40)
[2016-09-18 06:06] LABS: WHITE BLOOD COUNT 7.89 K/ul (4.6-10.2)
[2016-09-18 06:25] LABS: ALANINE AMINOTRANSFERASE 11 U/L (12-78); ALBUMIN 3.5 g/dL (3.4-5.0); ALBUMIN/GLOBULIN RATIO 0.92; ALKALINE PHOSPHATASE 97 U/L (53-141); ANION GAP 15.1; ASPARTATE AMINO TRANSFERASE 13 U/L (15-37); BILIRUBIN,TOTAL 0.64 mg/dL (0.00-1.20); BLOOD UREA NITROGEN 32 mg/dL (7-18); BUN/CREATININE RATIO 26.44; CALCIUM 10.3 mg/dL (8.2-10.2); CARBON DIOXIDE 26 mmol/L (23-31); CHLORIDE 103 mmol/L (98-107); CREATINE KINASE 64 U/L; CREATININE 1.21 mg/dL (0.60-1.30); GLUCOSE 151 mg/dL (82-115); POTASSIUM 4.1 mmol/L (3.5-5.10); SODIUM 140 mmol/L (136-145); TOTAL PROTEIN 7.3 g/dL (5.8-8.1)
[2016-09-18] MEDS ORDERED: DULCOLAX PO PRN (07:16)
[2016-09-18] MEDS ORDERED: LASIX TAB PO SCH (07:30)
[2016-09-18] MEDS: CALCIUM 500 + VIT D 200 MG TABLET PO SCH (08:33)
[2016-09-18] MEDS: FERROUS SULFATE PO SCH (08:33)
[2016-09-18] MEDS: CARDIZEM CD PO SCH (08:33)
[2016-09-18] MEDS: ELIQUIS PO SCH ×2 (08:33→21:27)
[2016-09-18] MEDS: PLAVIX PO SCH (08:33)
[2016-09-18] MEDS: LOPRESSOR PO SCH ×2 (08:34→21:26)
[2016-09-18] MEDS: ADVAIR 500-50 DISKUS IH SCH ×2 (08:36→21:26)
[2016-09-18] MEDS: ROCEPHIN 1 GM in SODIUM CHLORIDE 50 ML IV SCH (08:37)
[2016-09-18] MEDS ORDERED: MEDROL DOSEPAK PO SCH (09:00)
[2016-09-18] MEDS ORDERED: DILTIAZEM HCL 240 MG PO SCH (09:00)
[2016-09-18] MEDS ORDERED: [UNRECOGNIZED DRUG - OTHER] PO SCH (09:00)
[2016-09-18] MEDS ORDERED: FERROUS SULFATE DRIED 160 MG PO SCH (09:00)
[2016-09-18] MEDS ORDERED: VITAMIN D3 PO SCH (09:00)
[2016-09-18] MEDS ORDERED: CALCIUM CARBONATE PO SCH (09:00)
[2016-09-18] MEDS: MUCINEX PO SCH ×2 (09:14→21:26)
--- NOTE | 2016-09-18 12:48 | PCM.PROG ---
Attending Provider: ATTENDING PROVIDER: Dr. MAL MC DATE OF SERVICE: 09/18/16 SUBJECTIVE: This 81 year old WHITE/ F was hospitalized 09/17/16. The patient is admitted with URTI, some infiltrates on chest x-ray, and congestion. The patient was not getting any better at home. This morning on rounds, the patient has no fever or chills. She continues to smoke. REVIEW OF SYSTEMS: CONSTITUTIONAL: No fever, no chills. ENDOCRINE: No weight loss or weight gain. HEENT: No sinus drainage, no sore throat. CVS: No angina symptoms. No CHF symptoms. No palpitations. No atypical chest pain for CAD. No shortness of breath. RESPIRATORY: Cough and congestion. No hemoptysis. GI: No melena. No abdominal pain. No nausea, no vomiting. : No hematuria. No polyuria. SKIN: No rash. No wounds. MUSCULOSKELETAL: No pain. BINDERY MACHINE SETTER/SET UP OPERATOR: No blackout, no dizziness. No headache. No double vision. PSYCHIATRIC: Not anxious; no depression. No suicidal thoughts. No homicidal thoughts. PHYSICAL EXAMINATION: GENERAL: Lying in bed in no distress. VITAL SIGNS: Temperature 97.5 F, Pulse 86, Respiratory Rate 18, BP 143/81, Pulse Ox 90% HEENT: Normocephalic, atraumatic. Mucosa is dry, pallor positive. NECK: No JVP, no carotid bruit. No lymphadenopathy. CARDIAC: S1, S2, no S3. No murmur, gallop or regurgitation. LUNGS: Decreased entry with some crackles and expiratory wheezing. ABDOMEN: Soft, non-tender. Bowel sounds active. No rigidity, guarding or CVA tenderness. EXTREMITIES: No clubbing, cyanosis or edema. NEUROLOGIC: Awake, alert and oriented x3. LYMPHATIC: No palpable lymph nodes SKIN: Not dry. Intact. MUSCULOSKELETAL: No joint swelling. LAB REVIEW: 09/18/16 05:45 09/18/16 05:45 09/18/16 05:45: WBC 7.89 D, RBC 3.99 L, Hgb 12.1, Hct 34.9 L, MCV 87.5, MCH 30.3, MCHC 34.7, RDW Coeff of Geraldo 13.9, Plt Count 253, Immature Gran % (Auto) 0.5, Neut % (Auto) 87.3, Lymph % (Auto) 9.9 L, [place] % (Auto) 2.0, Eos % (Auto) 0.0, Baso % (Auto) 0.3, Immature Gran # (Auto) 0.0, Neut # 6.9, Lymph # 0.8, [place] # 0.2 L, Eos # 0.0, Baso # 0.0, Sodium 140, Potassium 4.1, Chloride 103, Carbon Dioxide 26, Anion Gap 15.1, BUN 32 H, Creatinine 1.21, Estimated GFR ( MDRD) 43.00, BUN/Creatinine Ratio 26.44, Glucose 151 H, Calcium 10.3 H, Total Bilirubin 0.64, AST 13 L, ALT 11 L, Alkaline Phosphatase 97, Total Creatine Kinase 64, Troponin I < 0.0100, Total Protein 7.3, Albumin 3.5, Globulin 3.8, Albumin/Globulin Ratio 0.92 09/17/16 22:25: Total Creatine Kinase 71, Troponin I 0.0150 ASSESSMENT: 1. COPD EXACERBATION SECONDARY TO BRONCHITIS 2. HYPOXEMIA 3. ATRIAL FIBRILLATION 4. HYPERTENSION 5. DYSLIPIDEMIA 6. OSTEOARTHRITIS 7. DJD SPINE PLAN: 1. Continue Rocephin 2. Continue Rocephin 3. Continue Duonebs 4. Solu-Medrol 5. Mucinex 600 mg b.i.d. 6. Continue IV fluids Plan and coordination of the patient's care discussed in the presence of Assistant Teacher and nurse. CONDITION: Stable SCRIBED BY: PAOLA HARO Catshovel Driver scribed while in presence of service performed by Dr. MAL MC on 09/18/16 ([id number])
[2016-09-18] MEDS ORDERED: JANUVIA PO SCH (21:00)
[2016-09-18] MEDS: ZOCOR PO SCH (21:26)
[2016-09-19] MEDS: DUONEB NEB SCH ×2 (05:04→11:21)
[2016-09-19] MEDS: SOLU-MEDROL 40 MG IVP SCH ×2 (05:05→12:58)
[2016-09-19 05:13] LABS: BASOPHILS % (AUTO) 0.1 % (0.0-3.0); HEMATOCRIT 35.1 % (37.0-47.0); HEMOGLOBIN 11.9 g/dl (12.0-16.0); IMMATURE GRANULOCYTE % (AUTO) 1.3 % (0.0-5.0); LYMPHOCYTES # (AUTO) 0.7 K/uL (0.60-3.4); LYMPHOCYTES % (AUTO) 6.8 (10.0-50.0); MEAN CORPUSCULAR HEMOGLOBIN 29.8 pg (27.0-31.0); MEAN CORPUSCULAR HGB CONC 33.9 (31.8-35.4); MONOCYTES # (AUTO) 0.4 K/uL (0.4-2.0); MONOCYTES % (AUTO) 3.5 (0-10); NEUTROPHILS # (AUTO) 9.2 K/ul (2.0-6.9); NEUTROPHILS % (AUTO) 88.3; PLATELET COUNT 295 10^3/uL (140-440); RED BLOOD COUNT 3.99 10^6/ul (4.20-5.40); WHITE BLOOD COUNT 10.35 K/ul (4.6-10.2)
[2016-09-19] MEDS: SODIUM CHLORIDE 1,000 ML IV SCH (05:31)
[2016-09-19 05:41] LABS: ALBUMIN 3.6 g/dL (3.4-5.0); ALBUMIN/GLOBULIN RATIO 0.95; ANION GAP 15.9; BILIRUBIN,TOTAL 0.39 mg/dL (0.00-1.20); BUN/CREATININE RATIO 32.67; CALCIUM 10.6 mg/dL (8.2-10.2); CREATININE 1.53 mg/dL (0.60-1.30); POTASSIUM 3.9 mmol/L (3.5-5.10); TOTAL PROTEIN 7.4 g/dL (5.8-8.1)
[2016-09-19] MEDS: CALCIUM 500 + VIT D 200 MG TABLET PO SCH (08:41)
[2016-09-19] MEDS: ADVAIR 500-50 DISKUS IH SCH (08:41)
[2016-09-19] MEDS: FERROUS SULFATE PO SCH (08:41)
[2016-09-19] MEDS: ROCEPHIN 1 GM in SODIUM CHLORIDE 50 ML IV SCH (08:41)
[2016-09-19] MEDS: CARDIZEM CD PO SCH (08:41)
[2016-09-19] MEDS: MUCINEX PO SCH (08:42)
[2016-09-19] MEDS: LOPRESSOR PO SCH (08:42)
[2016-09-19] MEDS: PLAVIX PO SCH (08:42)
[2016-09-19] MEDS: ELIQUIS PO SCH (08:42)
--- NOTE | 2016-09-19 09:27 | PCM.PROG ---
Attending Provider: ATTENDING PROVIDER: Dr. MAL MC DATE OF SERVICE: 09/19/16 SUBJECTIVE: This 81 year old WHITE/ F was hospitalized 09/17/16. The patient is feeling better. She has less cough, less shortness of breath. No fever or chills. She is upset about events that happened during the midnight shift as some of the nurses were not nice to her. REVIEW OF SYSTEMS: CONSTITUTIONAL: No fever, no chills. ENDOCRINE: No weight loss or weight gain. HEENT: No sinus drainage, no sore throat. CVS: No angina symptoms. No CHF symptoms. No palpitations. No atypical chest pain for CAD. No shortness of breath. RESPIRATORY: Less cough and congestion. No hemoptysis. GI: No melena. No abdominal pain. No nausea, no vomiting. : No hematuria. No polyuria. SKIN: No rash. No wounds. MUSCULOSKELETAL: No pain. APPLICATION INTEGRATOR: No blackout, no dizziness. No headache. No double vision. PSYCHIATRIC: Not anxious; no depression. No suicidal thoughts. No homicidal thoughts. PHYSICAL EXAMINATION: GENERAL: Sitting in chair in no distress. VITAL SIGNS: Temperature 97.6 F, Pulse 72, Respiratory Rate 19, BP 153/65, Pulse Ox 88% HEENT: Normocephalic, atraumatic. Mucosa is dry, pallor positive. NECK: No JVP, no carotid bruit. No lymphadenopathy. CARDIAC: S1, S2, no S3. No murmur, gallop or regurgitation. LUNGS: Decreased entry with some crackles. ABDOMEN: Soft, non-tender. Bowel sounds active. No rigidity, guarding or CVA tenderness. EXTREMITIES: No clubbing, cyanosis or edema. NEUROLOGIC: Awake, alert and oriented x3. LYMPHATIC: No palpable lymph nodes SKIN: Not dry. Intact. MUSCULOSKELETAL: No joint swelling. LAB REVIEW: 09/19/16 05:11 09/19/16 05:11 09/19/16 05:11: WBC 10.35 H, RBC 3.99 L, Hgb 11.9 L, Hct 35.1 L, MCV 88.0, MCH 29.8, MCHC 33.9, RDW Coeff of Geraldo 13.9, Plt Count 295, Immature Gran % (Auto) 1.3, Neut % (Auto) 88.3, Lymph % (Auto) 6.8 L, [place] % (Auto) 3.5, Eos % (Auto) 0.0, Baso % (Auto) 0.1, Immature Gran # (Auto) 0.1, Neut # 9.2 H, Lymph # 0.7, [place] # 0.4, Eos # 0.0, Baso # 0.0, Sodium 135 L, Potassium 3.9, Chloride 99, Carbon Dioxide 24, Anion Gap 15.9, BUN 50 H, Creatinine 1.53 H, Estimated GFR ( MDRD) 33.00, BUN/Creatinine Ratio 32.67, Glucose 145 H, Calcium 10.6 H, Total Bilirubin 0.39, AST 13 L, ALT 11 L, Alkaline Phosphatase 95, Total Protein 7.4, Albumin 3.6, Globulin 3.8, Albumin/Globulin Ratio 0.95 ASSESSMENT: 1. COPD EXACERBATION SECONDARY TO BRONCHITIS 2. HYPOXEMIA 3. ATRIAL FIBRILLATION 4. HYPERTENSION 5. DYSLIPIDEMIA 6. OSTEOARTHRITIS 7. DJD SPINE PLAN: 1. Discharge home 2. Keflex 500 mg b.i.d. for 7 days 3. Medrol Dosepak 4. Lifestyle modifications discussed with the patient to include weight loss, diet, and exercise. The patient voices understanding. 5. Probiotics/yogurt daily Plan and coordination of the patient's care discussed in the presence of Corporate Affairs Manager and nurse. CONDITION: Stable SCRIBED BY: PAOLA HARO Occupational Health Specialist scribed while in presence of service performed by Dr. MAL MC on 09/19/16 ([id number])
[2016-09-19 10:05] VITALS: BP 124/68; TEMP 97.8
--- NOTE | 2016-09-19 13:17 | HP ---
DATE OF SERVICE: 09/17/16 REASON FOR HOSPITALIZATION: Shortness of breath HISTORY OF PRESENT ILLNESS: This is an 81 year old female with history of COPD and bronchitis. The patient came to the emergency room with the coughing and congestion and increased shortness of breath not able to get the phlegm and came to the emergency room from [facility]. Albuterol was given in the route. Dr. Cabello saw the patient in the emergency and her WBC was 18,000. ABG showed the pH 7.46, pCO2 36.2, pO2 50.4, BUN 31, creatinine 1.40, BNP 217. Chest x-ray showed the congestion and pneumonia. At that time the patient was admitted to the hospital secondary to the hypoxemia, COPD exacerbation and pneumonia for the IV antibiotics and breathing treatment. REVIEW OF SYSTEMS: CONSTITUTIONAL: No night sweats. No fatigue, malaise, lethargy. No fever or chills. HEENT: Eyes: No visual changes. No eye pain. No eye discharge. ENT: No runny nose. No epistaxis. No sinus pain. No sore throat. No odynophagia. No ear pain. No congestion. RESPIRATORY: No cough, no congestion. No hemoptysis. CARDIOVASCULAR: No angina symptoms. No CHF symptoms. No atypical chest pain for CAD. No palpitations. No shortness of breath. GASTROINTESTINAL: No abdominal pain. No nausea or vomiting. No diarrhea or constipation. No hematemesis. No hematochezia. GENITOURINARY: No urgency. No frequency. No dysuria. No hematuria. No obstructive symptoms. No discharge. No pain. No significant abnormal bleeding. MUSCULOSKELETAL: No musculoskeletal pain. No joint swelling. No arthritis. NEUROLOGICAL: No headache. No neck pain. No syncope. No seizures. No dizziness. PSYCHIATRIC: Not anxious. No depression. No suicidal thoughts. No homicidal thoughts. SKIN: No rash. No lesions. No wounds. ENDOCRINE: No unexplained weight loss. No weight gain. HEMATOLOGIC/LYMPHATIC: No anemia. No purpura. No petechiae. No prolonged or excessive bleeding. No palpable lymph nodes. PERSONAL/FAMILY/SOCIAL HISTORY: Continued smoking. Family history is significant for the cancer. PAST MEDICAL/SURGICAL PROBLEMS: Coronary artery disease Status post heart attack, 1957 2 stents COPD Dependent edema Dyslipidemia Hypothyroidism Complete Hysterectomy Tonsillectomy Cataract surgery Atrial fibrillation MEDICATIONS: Zocor Lopressor Iron Calcium Eliquis Plavix Advair Mucinex Bisacodyl Keflex Cardizem Lasix Medrol-Dosepak Januvia ALLERGIES: No known allergies. PHYSICAL EXAMINATION: VITAL SIGNS: Blood pressure 167/93, respiratory rate 22, heart rate 116, temperature 99.1 and saturation is 96% on 3 liters. HEENT: Head normocephalic, atraumatic. Eyes: Extraocular muscles are intact. Pupils are equal, round and reactive to light and accommodation. Ears: No lesions. Nose appeared normal. Throat: No exudate or erythema. Mucosa dry. NECK: Supple. No JVD, no carotid bruit. No lymphadenopathy or thyromegaly. LUNGS: Decreased and basilar crackles. Percussion note normal. Chest symmetrical. HEART: S1, S2, no S3. No murmurs. No cyanosis or clubbing. No ascites. Pulses: Dorsalis pedis and posterior tibial pulses +1 to +2 both sides. ABDOMEN: Soft. Nontender. Bowel sounds active. No CVA tenderness. No mass felt. EXTREMITIES: +1 edema. Full range of motion of all extremities, equal. NEUROLOGIC: No focal deficit. Cranial nerves II through XII are grossly intact. No headache, no double vision or headache. The patient is awake and alert. SKIN: Not dry. Intact. Turgor - normal. LYMPHATIC: No palpable lymph nodes/no lymphedema. MUSCULOSKELETAL: Normal joints with no swelling. Muscle tone is normal. LABS: WBC 15.08, hgb 12.4, hct 36.5, plt count 257, ABG pH 7.461, pCO2 36, pO2 54, sodium 141, potassium 3.8, chloride 104, bicarb 26, BUN 31, creatinine 1.40 and glucose 163. BNP 217. Chest x-ray found congestion and pneumonia. ASSESSMENT: 1. COPD exacerbation secondary to the pneumonia community acquired 2. Hypoxemia secondary to the COPD 3. History of Coronary Artery Disease 4. Congestive Heart Failure 5. Atrial fibrillation 6. Diabetes Mellitus 7. Dyslipidemia 8. Osteoarthritis PLAN: 1. Admit patient to the regular floor 2. CBC and CMP today and daily 3. Cardiac enzymes and Troponin 4. ADA diet 5. Accu-checks with coverage 6. Continue the Januvia PO daily 7. Continue Rocephin 1 gram daily 8. Lasix 40mg IV push one dose 9. Solu-Medrol 40mg Q 8 hours 10.Lopressor 11.I&O's Will follow the patient in daily rounds. TIME SPENT: More than 65 minutes. NILDA
--- NOTE | 2016-09-21 13:22 | DS ---
DATE OF SERVICE: 09/19/16 FINAL DIAGNOSIS: 1. CHRONIC OBSTRUCTIVE PULMONARY DISEASE EXACERBATION SECONDARY TO BRONCHITIS 2. HYPOXEMIA SECONDARY TO CHRONIC OBSTRUCTIVE PULMONARY DISEASE EXACERBATION 3. ATRIAL FIBRILLATION ON ELIQUIS 4. HYPERTENSION 5. DYSLIPIDEMIA 6. OSTEOARTHRITIS 7. DJD OF THE SPINE 8. DEHYDRATION 9. HISTORY OF CATARACT SURGERY 10. TONSILLECTOMY 11. HISTORY OF CORONARY ARTERY DISEASE WITH HEART CATHETERIZATION AND STENT PLACEMENT 12. HIATAL HERNIA 13. COMPLETE HYSTERECTOMY 14. CONTINUED NICOTINE USE PLAN: 1. Discharge the patient home. 2. Follow up with [facility]. 3. CBC, CMP in one week. NEW PRESCRIPTIONS: Keflex 500 mg twice a day for seven days Medrol Dose Pack Metoprolol 50 mg one by mouth twice a day ACTIVITY: As much as tolerated. DISEASE SPECIFIC EDUCATION: Dehydration, pneumonia and the need of pneumonia vaccination. COPD discussed, as well as lung cancer was discussed with the patient in detail and she verbalized understanding. HOSPITAL COURSE: Lois Guy who is an 81 year old female with a history of chronic obstructive pulmonary disease and bronchitis came to the emergency room with cough, congestion and not able to breath. The patient was hypoxic when she came to the emergency room. Chest x-ray was negative. After the initial breathing treatment, the patient was not feeling better. At that time, the patient is admitted to the hospital with COPD exacerbation and hypoxemia. The patient was started on the Rocephin IV, Solu-Medrol 40 every 8 hours, DuoNebs, daily I & O's, IV fluids were given at 35 ml per hour. Gradually, the patient was feeling better and did not have any complications. She had less cough and less short of breath. As the patient was doing fine and did not have any problems, the patient was discharged to home and we did tell the patient to hold the Lasix until the CMP is checked by the PMD in three days and she will be followed by the [facility] in [place] to see Adriana. Time spent on the patient is more than 45 to 50 minutes today. MTDD
[2016-09-26 09:41] LABS: AEROBIC + ANAEROB SUSC Final report (.)
== END 2016-09-19 13:35 | disposition home or self-care (01) | DRG 202 ==
LOC: ED 09:56 → MEDSURG B 16:05 → UNDOADMOB 16:05 → OBSVTOIN 16:05
PROVIDERS: ADMIT Emergency Medicine; ATTEND Emergency Medicine
DX: J20.9 Acute bronchitis, unspecified (principal); J44.0 Chronic obstructive pulmonary disease with (acute) lower respiratory infection; J44.1 Chronic obstructive pulmonary disease with (acute) exacerbation; R09.02 Hypoxemia; R06.02 Shortness of breath; E86.0 Dehydration; I48.91 Unspecified atrial fibrillation; E11.9 Type 2 diabetes mellitus without complications; E78.5 Hyperlipidemia, unspecified; R60.0 Localized edema; M19.90 Unspecified osteoarthritis, unspecified site; M47.9 Spondylosis, unspecified; M79.662 Pain in left lower leg; M79.661 Pain in right lower leg; F17.200 Nicotine dependence, unspecified, uncomplicated; Z79.01 Long term (current) use of anticoagulants; Z79.84 Long term (current) use of oral hypoglycemic drugs; Z79.899 Other long term (current) drug therapy
CPT/HCPCS: 36415; 80053; 82550; 82803; 82962; 83605; 83880; 84145; 84484; 85025; 87040; 87070; 87077; 87186; 87804; 87880; 93005; 93010; 94640; 96361; 96365; 96367; 96375; 99223; 99233; 99239; 99284; 99285

== ENCOUNTER 2016-09-23 10:40 | Outpatient (CLI) ==
[2016-09-23 11:17] LABS: ALBUMIN 3.4 g/dL (3.4-5.0); ALBUMIN/GLOBULIN RATIO 1.06; ANION GAP 15.6; BILIRUBIN,TOTAL 0.23 mg/dL (0.00-1.20); BUN/CREATININE RATIO 24.11; CALCIUM 9.2 mg/dL (8.2-10.2); CREATININE 1.41 mg/dL (0.60-1.30); POTASSIUM 3.6 mmol/L (3.5-5.10); TOTAL PROTEIN 6.6 g/dL (5.8-8.1)
== END 2016-09-23 10:41 | disposition home or self-care (01) ==
LOC: LAB 10:40
PROVIDERS: ATTEND General Practice
DX: N28.9 Disorder of kidney and ureter, unspecified (principal)
CPT/HCPCS: 36415; 80053

== ENCOUNTER 2016-10-31 10:44 | Outpatient (CLI) ==
[2016-10-31 11:41] LABS: CREATININE 1.53 mg/dL (0.60-1.30)
--- NOTE | 2016-10-31 12:55 | CT ---
EXAM: CT Abdomen without contrast. CT Pelvis without contrast. HISTORY: Pancreatic mass. COMPARISON: MRI 01/17/2016. TECHNIQUE: Multiple axial images of the abdomen and pelvis were obtained without intravenous contra st. Images were reformatted in the coronal plane. FINDINGS: Please note that evaluation of the abdominal and pelvic structures is limited due to lack of intravenous contrast. Multiple nodules are seen in both lower lobes, most which measure number of 0.5 cm which are small. However, the largest nodule in the left lower lobe measures approximately 1.6 x 1.5 cm on axial dunia ge five which may have slightly increased in size. Degenerative changes present in the spine with o ld compression deformity of L1 noted. No osteolytic or osteoblastic lesions identified. The liver, gallbladder, and adrenal glands are unremarkable. Soft tissue nodules seen adjacent to t he cyst. Pancreatic tail in the region of the splenic hilum measures approximately 2.5 x 2.4 cm whi ch is stable. Otherwise, the pancreas and spleen are unremarkable. Bilateral renal cysts are prese nt. Extensive renal vascular calcifications noted bilaterally. There is no hydronephrosis. The bowel is normal in course and caliber without evidence for obstruction or inflammatory process. Uterus is absent. Urinary bladder is unremarkable. No free fluid or free air identified. Extensi ve atherosclerotic calcifications are present IMPRESSION: 1. Stable probable splenule in the region of the splenic hilum. No acute abnormality in the abdome n or pelvis. 2. Possible mild increase in size of left lower lobe nodule. Correlation with PET CT or percutaneo us sampling should be considered.
== END 2016-10-31 10:45 | disposition home or self-care (01) ==
LOC: RAD 10:44
PROVIDERS: ATTEND Physician Assistant Medical
DX: R19.09 Other intra-abdominal and pelvic swelling, mass and lump (principal)
CPT/HCPCS: 36415; 82565

== ENCOUNTER 2016-12-24 11:08 | Inpatient (IN) | payer OTHER ==
--- NOTE | 2016-12-24 11:16 | ED.PDOC ---
General ED Provider: Dr. 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 not smoking chest pains improved but increasing over past three days- scared her -worse shortness of breath this morning Time Seen by Physician: 12:06 Mode of Arrival: Ambulance Information Source: Patient Exam Limitations: No limitations Primary Care Provider: PITER OSMAN Nursing and Triage Documentation Reviewed and Agree: No Review of Systems - Review Of Systems Constitutional: Reports: Fever, Malaise, Weakness Eyes: Reports: No symptoms Ears, Nose, Mouth, Throat: Reports: No symptoms Respiratory: Reports: Short of air Cardiac: Reports: Chest pain GI: Reports: Abdominal pain (left upper abdomen and chest) : Reports: No symptoms Musculoskeletal: Reports: No symptoms Skin: Reports: No symptoms Neurological: Reports: No symptoms Endocrine: Reports: No symptoms Hematologic/Lymphatic: Reports: No symptoms All Other Systems: Other Past Medical History - Past Medical History Endocrine: Reports: DM 2 Cardiovascular: Reports: AL Respiratory: Reports: COPD, Asthma Hematological: Reports: None Gastrointestinal: Reports: None Genitourinary: Reports: None Neuro/Psych: Reports: None Musculoskeletal: Reports: None Cancer: Reports: None - Surgical History General Surgical History: Reports: Hysterectomy, , Orthopedic (carpal tunnel) - Family History Family History: Reports: Unknown - Social History Smoking Status: Current every day smoker, Heavy tobacco smoker Hx Substance Use: No Alcohol Screening: None Physical Exam - Physical Exam Appearance: Ill-appearing, Thin Ill-appearing: Moderate Pain Distress: Moderate Eyes: VESNA, EOMI, Conjunctiva clear ENT: Ears normal, Nose normal, Oropharynx normal Neck: Supple Respiratory: Airway patent, Breath sounds diminished, Crackles, Rhonchi, Wheezes Cardiovascular: RRR, Tachycardia GI/: Soft, Nontender, No masses, Bowel sounds normal, No Organomegaly Musculoskeletal: Normal strength, ROM intact, No edema, No calf tenderness Skin: Warm, Dry, Normal color Neurological: Sensation intact, Motor intact, Reflexes intact, Cranial nerves intact, Alert, Oriented Psychiatric: Affect appropriate, Mood appropriate Interpretation - Radiology Interpretation Radiology Interpretation By: Radiologist Radiology Results: Positive Exam Interpreted: CXR - EKG Interpretation Time of EKG #1: 11:15 Rate: Tachy Rhythm: Other (afib with rvr ant t wave inversion) Critical Care Note - Critical Care Note Total Time (mins): 10 Course - Course Hematology/Chemistry: 12/24/16 11:30 12/24/16 11:30 Orders, Labs, Meds: Lab Review 12/24/16 12/24/16 11:30 11:40 WBC 11.43 H RBC 3.87 L Hgb 11.3 L Hct 33.3 L MCV 86.0 MCH 29.2 MCHC 33.9 RDW Coeff of Geraldo 14.2 Plt Count 443 H Immature Gran % (Auto) 0.8 Neut % (Auto) 77.1 Lymph % (Auto) 13.3 Jack % (Auto) 7.4 Eos % (Auto) 0.9 Baso % (Auto) 0.5 Immature Gran # (Auto) 0.1 Neut # 8.8 H Lymph # 1.5 Jack # 0.9 Eos # 0.1 Baso # 0.1 D-Dimer (Manual) 987.06 Puncture Site Lradial O2 Saturation 88.0 L ABG pH 7.501 H* ABG pCO2 33.4 L ABG pO2 49.0 L* ABG HCO3 26.1 H ABG Total CO2 27 ABG Base Excess 3 H Shukri Test + O2 Delivery Device Nc Oxygen Liter Flow 3.00 FiO2 % Pending Sodium 137 Potassium 3.5 Chloride 97 L Carbon Dioxide 23 Anion Gap 20.5 BUN 24 H Creatinine 1.61 H Estimated GFR (MDRD) 31.00 BUN/Creatinine Ratio 14.90 Glucose 134 H Calcium 10.1 Total Bilirubin 0.51 AST 10 L ALT 8 L Alkaline Phosphatase 107 Total Creatine Kinase 20 Troponin I < 0.0100 B-Natriuretic Peptide 488 H Total Protein 7.2 Albumin 3.2 L Globulin 4.0 Albumin/Globulin Ratio 0.80 Orders Category Date Time Status ADMIT PATIENT INPATIENT .TO [facility] (MONITORED BED) ADMISSION 12/24/16 12: 18 Active ABG DRAW REQUEST Stat CARDIO 12/24/16 11:14 Completed EKG-(ED ONLY) Stat CARDIO 12/24/16 11:14 Completed EKG-(IP & OP ONLY) DAILY CARDIO 12/25/16 06:00 Ordered EKG-(IP & OP ONLY) DAILY CARDIO 12/26/16 06:00 Ordered EKG-(IP & OP ONLY) DAILY CARDIO 12/27/16 06:00 Ordered NEBULIZER TREATMENT Stat CARDIO 12/24/16 11:21 Completed OXYGEN Routine CARDIO 12/24/16 12:19 Ordered ACTIVITY .Early Mobilization for VTE Prevention CARE 12/24/16 12:18 Active BLOOD GLUCOSE MONITORING 0630,1100,1700,2100 CARE 12/24/16 12:19 Active GIVE HS SNACK 2100 CARE 12/24/16 12:21 Active INTAKE & OUTPUT Q8HR CARE 12/24/16 12:18 Active INTAKE & OUTPUT Q8HR CARE 12/24/16 12:25 Active TELEMETRY MONITORING TELE CARE 12/24/16 12:21 Active VITAL SIGNS Q4HR CARE 12/24/16 12:18 Active ADA 1800 BALWINDER. DIET DIETARY 12/24/16 Dinner Ordered HS SNACK DIETARY 12/24/16 Dinner Ordered ED APPLY O2 .ONCE EMERGENCY 12/24/16 11:14 Active ED FABRIC AND ACCESSORIES ESTIMATOR APPLIED .ONCE EMERGENCY 12/24/16 11:14 Active ABG Stat LAB 12/24/16 11:40 Results B-TYPE NATRIURETIC PEPTIDE Stat LAB 12/24/16 11:30 Completed CBC W/ AUTO DIFF DAILY@0600 LAB 12/25/16 06:00 Ordered CBC W/ AUTO DIFF DAILY@0600 LAB 12/26/16 06:00 Ordered CBC W/ AUTO DIFF DAILY@0600 LAB 12/27/16 06:00 Ordered CBC W/ AUTO DIFF DAILY@0600 LAB 12/28/16 06:00 Ordered CBC W/ AUTO DIFF DAILY@0600 LAB 12/29/16 06:00 Ordered CBC W/ AUTO DIFF DAILY@0600 LAB 12/30/16 06:00 Ordered CBC W/ AUTO DIFF DAILY@0600 LAB 12/31/16 06:00 Ordered CBC W/ AUTO DIFF DAILY@0600 LAB 01/01/17 06:00 Ordered CBC W/ AUTO DIFF DAILY@0600 LAB 01/02/17 06:00 Ordered CBC W/ AUTO DIFF DAILY@0600 LAB 01/03/17 06:00 Ordered CBC W/ AUTO DIFF DAILY@0600 LAB 01/04/17 06:00 Ordered CBC W/ AUTO DIFF DAILY@0600 LAB 01/05/17 06:00 Ordered CBC W/ AUTO DIFF DAILY@0600 LAB 01/06/17 06:00 Ordered CBC W/ AUTO DIFF DAILY@0600 LAB 01/07/17 06:00 Ordered CBC W/ AUTO DIFF DAILY@0600 LAB 01/08/17 06:00 Ordered CBC W/ AUTO DIFF DAILY@0600 LAB 01/09/17 06:00 Ordered CBC W/ AUTO DIFF DAILY@0600 LAB 01/10/17 06:00 Ordered CBC W/ AUTO DIFF DAILY@0600 LAB 01/11/17 06:00 Ordered CBC W/ AUTO DIFF DAILY@0600 LAB 01/12/17 06:00 Ordered CBC W/ AUTO DIFF DAILY@0600 LAB 01/13/17 06:00 Ordered CBC W/ AUTO DIFF Stat LAB 12/24/16 11:30 Completed COMPREHENSIVE METABOLIC PANEL DAILY@0600 LAB 12/25/16 06:00 Ordered COMPREHENSIVE METABOLIC PANEL DAILY@0600 LAB 12/26/16 06:00 Ordered COMPREHENSIVE METABOLIC PANEL DAILY@0600 LAB 12/27/16 06:00 Ordered COMPREHENSIVE METABOLIC PANEL DAILY@0600 LAB 12/28/16 06:00 Ordered COMPREHENSIVE METABOLIC PANEL DAILY@0600 LAB 12/29/16 06:00 Ordered COMPREHENSIVE METABOLIC PANEL DAILY@0600 LAB 12/30/16 06:00 Ordered COMPREHENSIVE METABOLIC PANEL DAILY@0600 LAB 12/31/16 06:00 Ordered COMPREHENSIVE METABOLIC PANEL DAILY@0600 LAB 01/01/17 06:00 Ordered COMPREHENSIVE METABOLIC PANEL DAILY@0600 LAB 01/02/17 06:00 Ordered COMPREHENSIVE METABOLIC PANEL DAILY@0600 LAB 01/03/17 06:00 Ordered COMPREHENSIVE METABOLIC PANEL DAILY@0600 LAB 01/04/17 06:00 Ordered COMPREHENSIVE METABOLIC PANEL DAILY@0600 LAB 01/05/17 06:00 Ordered COMPREHENSIVE METABOLIC PANEL DAILY@0600 LAB 01/06/17 06:00 Ordered COMPREHENSIVE METABOLIC PANEL DAILY@0600 LAB 01/07/17 06:00 Ordered COMPREHENSIVE METABOLIC PANEL DAILY@0600 LAB 01/08/17 06:00 Ordered COMPREHENSIVE METABOLIC PANEL DAILY@0600 LAB 01/09/17 06:00 Ordered COMPREHENSIVE METABOLIC PANEL DAILY@0600 LAB 01/10/17 06:00 Ordered COMPREHENSIVE METABOLIC PANEL DAILY@0600 LAB 01/11/17 06:00 Ordered COMPREHENSIVE METABOLIC PANEL DAILY@0600 LAB 01/12/17 06:00 Ordered COMPREHENSIVE METABOLIC PANEL DAILY@0600 LAB 01/13/17 06:00 Ordered COMPREHENSIVE METABOLIC PANEL Stat LAB 12/24/16 11:30 Completed CREATINE KINASE Q8H LAB 12/24/16 18:30 Ordered CREATINE KINASE Q8H LAB 12/25/16 02:30 Ordered CREATINE KINASE Stat LAB 12/24/16 11:30 Completed D-DIMER Stat LAB 12/24/16 11:30 Completed TROPONIN I Q8H LAB 12/24/16 18:30 Ordered TROPONIN I Q8H LAB 12/25/16 02:30 Ordered TROPONIN I Stat LAB 12/24/16 11:30 Completed Acetaminophen [Tylenol] MEDS 12/24/16 12:18 Active 650 mg PO Q4H PRN Albuterol Sulfate [Proair Hfa] MEDS 12/24/16 13:00 Active 1 puff IH QID Allopurinol [Zyloprim] MEDS 12/25/16 09:00 Active 200 mg PO DAILY Ceftriaxone Sodium [Rocephin] MEDS 12/24/16 12:01 Discontinued 1 gm .ROUTE .STK-MED ONE Ceftriaxone Sodium [Rocephin] 1 gm MEDS 12/25/16 09:00 Active 0.9 % Sodium Chloride [Sodium Chloride] 50 ml IV DAILY Ceftriaxone Sodium [Rocephin] 1 gm MEDS 12/24/16 11:57 Discontinued 0.9 % Sodium Chloride [Sodium Chloride] 50 ml IV ONCE Clopidogrel Bisulfate [Plavix] MEDS 12/25/16 09:00 Active 75 mg PO DAILY Ferrous Sulfate, Dried [Iron] MEDS 12/25/16 08:00 Active 160 mg PO BID BREAKFAST&LUNCH Fluticasone/Salmeterol 500/50 [Advair 500-50 Diskus] MEDS 12/24/16 21:00 Active 1 puff IH BID Furosemide [Lasix Tab] MEDS 12/25/16 06:30 Active 40 mg PO [id number] Hydrocortisone Sod Succ/Pf [Solu-Cortef 100 mg] MEDS 12/24/16 12:16 Discontinued 125 mg IVP ONCE STA Hydrocortisone Sod Succ/Pf [Solu-Cortef 250 mg] MEDS 12/24/16 18:00 Active 125 mg IVP Q6HR Ipratropium/Albuterol Neb [Duoneb] MEDS 12/24/16 11:21 Discontinued 1 vial NEB ONCE STA Metoprolol Tartrate [Lopressor] MEDS 12/24/16 21:00 Active 50 mg PO BID Simvastatin [Zocor] MEDS 12/24/16 21:00 Active 10 mg PO BEDTIME Sodium Chloride 0.9% [Sodium Chloride] 1,000 ml MEDS 12/24/16 12:30 Active IV 40 mls/hr RESUSCITATION STATUS Routine OTHERS 12/24/16 12:25 Ordered CHEST, 1V AP ONLY Stat RADS 12/24/16 11:14 Completed Medications Generic Name Dose Route Start Last Admin Trade Name Freq PRN Reason Stop Dose Admin Acetaminophen 650 mg 12/24/16 12:18 Tylenol PO Q4H PRN Mild Pain Albuterol Sulfate 1 puff 12/24/16 13:00 Proair Hfa IH QID [facility] Allopurinol 200 mg 12/25/16 09:00 Zyloprim PO DAILY [facility] Apixaban 2.5 mg 12/24/16 21:00 Eliquis PO BID [facility] Bisacodyl 10 mg 12/24/16 12:52 Dulcolax PO BEDTIME PRN CONSTIPATION Calcium/Vitamin D 1 each 12/25/16 09:00 Calcium 500 + Vit D 200 Mg Tablet PO DAILY [facility] Clopidogrel Bisulfate 75 mg 12/25/16 09:00 Plavix PO DAILY [facility] Diltiazem HCl 240 mg 12/25/16 09:00 Cardizem Cd PO DAILY [facility] Furosemide 40 mg 12/25/16 06:30 Lasix Tab PO [id number] [facility] Hydrocortisone Sodium Succinate 125 mg 12/24/16 18:00 Solu-Cortef 250 Mg IVP Q6HR [facility] Ceftriaxone Sodium 1 gm/ 50 mls @ 75 mls/hr 12/25/16 09:00 Sodium Chloride IV DAILY [facility] Sodium Chloride 1,000 mls @ 40 mls/hr 12/24/16 12:30 Sodium Chloride IV .Q25H DANNY Ipratropium Boscobel 1 vial 12/24/16 18:00 Atrovent 0.02% Neb NEB RTBID [facility] Metoprolol Tartrate 50 mg 12/24/16 21:00 Lopressor PO BID [facility] Non-Formulary Medication 160 mg 12/25/16 08:00 Ferrous Sulfate, Dried [Iron] PO BID BREAKFAST&LUNCH [facility] Fluticasone/Salmeterol 1 puff 12/24/16 21:00 Advair 500-50 Diskus IH BID [facility] Simvastatin 10 mg 12/24/16 21:00 Zocor PO BEDTIME DANNY Sitagliptin Phosphate 25 mg 12/24/16 21:00 Januvia PO BEDTIME DANNY Discontinued Medications Generic Name Dose Route Start Last Admin Trade Name Mitzy PRN Reason Stop Dose Admin Albuterol/Ipratropium 1 vial 12/24/16 11:21 12/24/16 11:28 Duoneb NEB 12/24/16 11:22 1 vial ONCE STA Administration Hydrocortisone Sodium Succinate 125 mg 12/24/16 12:16 12/24/16 12:34 Solu-Cortef 100 Mg IVP 12/24/16 12:17 125 mg ONCE STA Administration Ceftriaxone Sodium 1 gm/ 50 mls @ 75 mls/hr 12/24/16 11:57 12/24/16 12:07 Sodium Chloride IV 12/24/16 12:36 75 mls/hr ONCE STA Administration Vital Signs: Temp Pulse Resp BP Pulse Ox 12/24/16 11:11 100.5 F H 110 H 31 H 103/77 90 L Departure - Departure Time of Disposition: 11:10 Disposition: ADMITTED INPATIENT Discharge Problem: COPD exacerbation, Chest pain Condition: Fair Pt referred to PMD for follow-up: No (hospitalist) Allergies/Adverse Reactions: Allergies pneumococcal vaccine Adverse Reaction (Verified 12/24/16 13:16) Swelling Home Medications: Ambulatory Orders Albuterol Sulfate [Ventolin Hfa] 1 inh IH QID 04/02/16 Apixaban [Eliquis] 2.5 mg PO BID 04/02/16 Calcium Carbonate/Vitamin D3 [Calcium 1,000 + D3 Caplet] 1 tab PO DAILY Clopidogrel Bisulfate [Plavix] 75 mg PO DAILY 04/02/16 Ferrous Sulfate, Dried [Iron] 160 mg PO BID BREAKFAST&LUNCH 04/02/16 Simvastatin [Zocor] 10 mg PO BEDTIME 04/02/16 Fluticasone/Salmeterol 500/50 [Advair 500-50 Diskus] 1 puff IH BID 04/03/16 Bisacodyl [Laxative] 10 mg PO BEDTIME PRN 04/04/16 Diltiazem HCl [Cardizem Cd] 240 mg PO DAILY #30 cap.er.24h 06/28/16 Furosemide [Lasix Tab] 40 mg PO MOWEFRSA #120 tablet 06/28/16 Sitagliptin Phosphate [Januvia] 25 mg PO BEDTIME #30 tablet 06/28/16 Metoprolol Tartrate [Lopressor] 50 mg PO BID #60 tablet 09/19/16 Allopurinol 200 mg PO DAILY 12/24/16
[2016-12-24] MEDS ORDERED: DUONEB NEB STA (11:21)
--- NOTE | 2016-12-24 11:33 | DI ---
EXAM: Single view of the chest. History: Chest pain. Comparison: Chest radiograph 09/17/2016, chest CT 11/27/2016 Findings: Atherosclerotic vascular calcifications. No pneumothorax. Heart is enlarged. Mild left basilar atelectasis or infiltrate. Interstitial thickening. No definite pleural fluid. No acute osseous abnormalities. Impression: Cardiomegaly with no overt pulmonary edema. Mild left lower lobe atelectasis or infilt rate.
[2016-12-24 11:39] LABS: BASOPHILS # (AUTO) 0.1 K/uL (0-0.2); BASOPHILS % (AUTO) 0.5 % (0.0-3.0); EOSINOPHILS # (AUTO) 0.1 K/ul (0.0-0.7); EOSINOPHILS % (AUTO) 0.9 % (0.0-7.0); HEMATOCRIT 33.3 % (37.0-47.0); HEMOGLOBIN 11.3 g/dl (12.0-16.0); IMMATURE GRANULOCYTE % (AUTO) 0.8 % (0.0-5.0); LYMPHOCYTES # (AUTO) 1.5 K/uL (0.60-3.4); LYMPHOCYTES % (AUTO) 13.3 (10.0-50.0); MEAN CORPUSCULAR HEMOGLOBIN 29.2 pg (27.0-31.0); MEAN CORPUSCULAR HGB CONC 33.9 (31.8-35.4); MONOCYTES # (AUTO) 0.9 K/uL (0.4-2.0); MONOCYTES % (AUTO) 7.4 (0-10); NEUTROPHILS # (AUTO) 8.8 K/ul (2.0-6.9); NEUTROPHILS % (AUTO) 77.1; PLATELET COUNT 443 10^3/uL (140-440); RED BLOOD COUNT 3.87 10^6/ul (4.20-5.40); WHITE BLOOD COUNT 11.43 K/ul (4.6-10.2)
[2016-12-24 11:51] LABS: ABG PCO2 33.4 mmHg (35-45); ABG PH 7.501 (7.35-7.45)
[2016-12-24 11:52] LABS: ABG BASE EXCESS 3 (-2.0-2.0); ABG HCO3 26.1 (22.0-26.0); ABG TCO2 27 (22.0-28.0)
[2016-12-24] MEDS ORDERED: ROCEPHIN 1 GM in SODIUM CHLORIDE 50 ML IV STA (11:57)
[2016-12-24] MEDS ORDERED: ROCEPHIN ONE (12:01)
[2016-12-24 12:04] LABS: ALANINE AMINOTRANSFERASE 8 U/L (12-78); ALBUMIN 3.2 g/dL (3.4-5.0); ALKALINE PHOSPHATASE 107 U/L (53-141); ANION GAP 20.5; ASPARTATE AMINO TRANSFERASE 10 U/L (15-37); BILIRUBIN,TOTAL 0.51 mg/dL (0.00-1.20); BLOOD UREA NITROGEN 24 mg/dL (7-18); CALCIUM 10.1 mg/dL (8.2-10.2); CARBON DIOXIDE 23 mmol/L (23-31); CHLORIDE 97 mmol/L (98-107); CREATINE KINASE 20 U/L; CREATININE 1.61 mg/dL (0.60-1.30); GLUCOSE 134 mg/dL (82-115); POTASSIUM 3.5 mmol/L (3.5-5.10); SODIUM 137 mmol/L (136-145); TOTAL PROTEIN 7.2 g/dL (5.8-8.1)
[2016-12-24] MEDS ORDERED: SOLU-CORTEF 100 MG IVP STA (12:16)
[2016-12-24] MEDS ORDERED: TYLENOL PO PRN (12:18)
[2016-12-24] MEDS ORDERED: BISACODYL 10 MG PO PRN (12:26)
[2016-12-24] MEDS ORDERED: DULCOLAX PO PRN (12:52)
[2016-12-24 13:25] VITALS: BMI 25.6
[2016-12-24] MEDS: SODIUM CHLORIDE 1,000 ML IV SCH (13:41)
[2016-12-24] MEDS: PROAIR HFA IH SCH ×3 (14:59→20:06)
[2016-12-24] MEDS: ATROVENT 0.02% NEB NEB SCH (17:00)
[2016-12-24] MEDS: SOLU-CORTEF 250 MG IVP SCH ×2 (18:15→23:03)
[2016-12-24 18:48] LABS: CREATINE KINASE 18 U/L
[2016-12-24] MEDS: ADVAIR 500-50 DISKUS IH SCH (20:05)
[2016-12-24] MEDS: ELIQUIS PO SCH (20:06)
[2016-12-24] MEDS: ZOCOR PO SCH (20:06)
[2016-12-24] MEDS: JANUVIA PO SCH (20:06)
[2016-12-24] MEDS: LOPRESSOR PO SCH (20:07)
[2016-12-24] MEDS ORDERED: NON-FORMULARY MEDICATION (Apixaban [Eliquis] 2.5 MG) PO SCH (21:00)
[2016-12-24] MEDS ORDERED: NON-FORMULARY MEDICATION (Sitagliptin Phosphate [Januvia] 25 MG) PO SCH (21:00)
[2016-12-25 02:31] LABS: BASOPHILS % (AUTO) 0.2 % (0.0-3.0); HEMATOCRIT 30.9 % (37.0-47.0); HEMOGLOBIN 10.7 g/dl (12.0-16.0); IMMATURE GRANULOCYTE % (AUTO) 1.1 % (0.0-5.0); LYMPHOCYTES # (AUTO) 0.8 K/uL (0.60-3.4); LYMPHOCYTES % (AUTO) 7.8 (10.0-50.0); MEAN CORPUSCULAR HEMOGLOBIN 29.9 pg (27.0-31.0); MEAN CORPUSCULAR HGB CONC 34.6 (31.8-35.4); MEAN CORPUSCULAR VOLUME 86.3 fl (81.0-99.0); MONOCYTES # (AUTO) 0.2 K/uL (0.4-2.0); MONOCYTES % (AUTO) 2.1 (0-10); NEUTROPHILS # (AUTO) 8.8 K/ul (2.0-6.9); NEUTROPHILS % (AUTO) 88.8; PLATELET COUNT 416 10^3/uL (140-440); RED BLOOD COUNT 3.58 10^6/ul (4.20-5.40); WHITE BLOOD COUNT 9.92 K/ul (4.6-10.2)
[2016-12-25 02:50] LABS: ALBUMIN 2.9 g/dL (3.4-5.0); ALBUMIN/GLOBULIN RATIO 0.78; ANION GAP 17.1; BILIRUBIN,TOTAL 0.35 mg/dL (0.00-1.20); BUN/CREATININE RATIO 16.37; CALCIUM 9.8 mg/dL (8.2-10.2); CREATININE 1.71 mg/dL (0.60-1.30); POTASSIUM 4.1 mmol/L (3.5-5.10); TOTAL PROTEIN 6.6 g/dL (5.8-8.1)
[2016-12-25 02:57] LABS: CREATINE KINASE 12 U/L
[2016-12-25] MEDS: ATROVENT 0.02% NEB NEB SCH ×2 (05:11→17:08)
[2016-12-25] MEDS: LASIX TAB PO SCH (05:31)
[2016-12-25] MEDS: SOLU-CORTEF 250 MG IVP SCH ×4 (05:31→23:53)
[2016-12-25] MEDS: PROTONIX PO SCH ×2 (05:32→17:10)
[2016-12-25] MEDS ORDERED: FERROUS SULFATE DRIED 160 MG PO SCH (08:00)
[2016-12-25] MEDS: FERROUS SULFATE PO SCH (08:36)
[2016-12-25] MEDS: ROCEPHIN 1 GM in SODIUM CHLORIDE 50 ML IV SCH (08:36)
[2016-12-25] MEDS: LOPRESSOR PO SCH ×2 (08:36→20:35)
[2016-12-25] MEDS: ADVAIR 500-50 DISKUS IH SCH ×2 (08:36→20:33)
[2016-12-25] MEDS: PROAIR HFA IH SCH ×4 (08:36→20:35)
[2016-12-25] MEDS: CALCIUM 500 + VIT D 200 MG TABLET PO SCH (08:37)
[2016-12-25] MEDS: CARDIZEM CD PO SCH (08:37)
[2016-12-25] MEDS: ELIQUIS PO SCH ×2 (08:37→20:34)
[2016-12-25] MEDS: PLAVIX PO SCH (08:38)
[2016-12-25] MEDS ORDERED: VITAMIN D3 PO SCH (09:00)
[2016-12-25] MEDS ORDERED: ZYLOPRIM PO SCH (09:00)
[2016-12-25] MEDS ORDERED: CALCIUM CARBONATE PO SCH (09:00)
[2016-12-25] MEDS ORDERED: DILTIAZEM HCL 240 MG PO SCH (09:00)
[2016-12-25] MEDS ORDERED: [UNRECOGNIZED DRUG - OTHER] PO SCH (09:00)
--- NOTE | 2016-12-25 09:13 | PCM.PROG ---
Attending Provider: [facility]: 12/25/16 SUBJECTIVE: This 81 year old WHITE/ F was hospitalized 12/24/16. The patient was seen with Nurse Practitioner, Rosi. The patient is alert and sitting in chair with shortness of breath with talking. She has been eating well. She is some better. REVIEW OF SYSTEMS: CONSTITUTIONAL: No night sweats. No fatigue, malaise, lethargy. No fever or chills. HEENT: Eyes: No visual changes. No eye pain. No eye discharge. ENT: No runny nose. No epistaxis. No sinus pain. No odynophagia. No congestion. RESPIRATORY: Cough, no congestion. No hemoptysis. CARDIOVASCULAR: No angina symptoms. No CHF symptoms. No atypical chest pain for CAD. No palpitations. Shortness of breath. GASTROINTESTINAL: No abdominal pain. No nausea or vomiting. No diarrhea or constipation. No hematemesis. No hematochezia. GENITOURINARY: No urgency. No frequency. No dysuria. No hematuria. No obstructive symptoms. No discharge. No pain. No significant abnormal bleeding. MUSCULOSKELETAL: No musculoskeletal pain; no joint swelling. NEUROLOGICAL: Awake, alert, oriented to time, place and person. No headache. No neck pain. No syncope. No seizures. No dizziness. PSYCHIATRIC: Not anxious. No depression. No suicidal thoughts. No homicidal thoughts. SKIN: No rash. No lesions. No wounds. ENDOCRINE: No unexplained weight loss. No weight gain. HEMATOLOGIC/LYMPHATIC: No anemia. No purpura. No petechiae. No prolonged or excessive bleeding. No palpable lymph nodes. PHYSICAL EXAMINATION: GENERAL: The patient is awake, alert and oriented, lying/sitting in bed in no distress. VITAL SIGNS: Temperature 97.4 F, Pulse 77, Respiratory Rate 20, BP 139/67, Pulse Ox 97% HEENT: Head normocephalic, atraumatic. Eyes: Extraocular muscles are intact. Pupils are equal, round and reactive to light and accommodation. Ears: No lesions. Nose appeared normal. Throat: No exudate or erythema. NECK: Supple. No JVD, no carotid bruit. No lymphadenopathy or thyromegaly. LUNGS: Bilateral wheeze with diminished breath sounds. Percussion note normal. Chest symmetrical. HEART: S1, S2, no S3. No murmurs. No cyanosis or clubbing. No ascites. Pulses: Dorsalis pedis and posterior tibial pulses +1 to +2 both sides. ABDOMEN: Soft. Non-tender. Bowel sounds active. No CVA tenderness. No mass felt. EXTREMITIES: No edema. Full range of motion of all extremities, equal. NEUROLOGIC: No focal deficit. Cranial nerves II through XII are grossly intact. No headache, no double vision or headache. SKIN: Not dry. Intact. Turgor-normal. LYMPHATIC: No palpable lymph nodes/no lymphedema. MUSCULOSKELETAL: Normal joints with no swelling. Muscle tone is normal. LAB REVIEW: 12/25/16 02:30 12/25/16 02:30 12/25/16 02:30: WBC 9.92, RBC 3.58 L, Hgb 10.7 L, Hct 30.9 L, MCV 86.3, MCH 29.9 , MCHC 34.6, RDW Coeff of Geraldo 14.0, Plt Count 416, Immature Gran % (Auto) 1.1, Neut % (Auto) 88.8, Lymph % (Auto) 7.8 L, [place] % (Auto) 2.1, Eos % (Auto) 0.0, Baso % (Auto) 0.2, Immature Gran # (Auto) 0.1, Neut # 8.8 H, Lymph # 0.8, [place] # 0.2 L, Eos # 0.0, Baso # 0.0, Sodium 137, Potassium 4.1, Chloride 98, Carbon Dioxide 26, Anion Gap 17.1, BUN 28 H, Creatinine 1.71 H, Estimated GFR (MDRD) 29.00, BUN/Creatinine Ratio 16.37, Glucose 188 H D, Calcium 9.8, Total Bilirubin 0.35, AST 9 L, ALT 8 L, Alkaline Phosphatase 98, Total Creatine Kinase 12, Troponin I < 0.0100, Total Protein 6.6, Albumin 2.9 L, Globulin 3.7, Albumin/Globulin Ratio 0.78 12/24/16 18:15: Total Creatine Kinase 18, Troponin I < 0.0100 ASSESSMENT: Please see below. 1. Acute COPD exacerbation 2. Chronic bronchitis PLAN: 1. Will continue IV steroids 2. Instructed to rest Plan and coordination of the patient's care discussed in the presence of Mail Handlers Supervisor and nurse. SCRIBED BY: ABY DEVINE, Medical Office Professional Instructor scribed while in presence of service performed by Dr. A[facility]NA [facility]/ROSI OKEEFE APRN on 12/25/16 ([id number])
[2016-12-25] MEDS: SODIUM CHLORIDE 1,000 ML IV SCH (14:44)
[2016-12-25] MEDS: JANUVIA PO SCH (20:34)
[2016-12-25] MEDS: ZOCOR PO SCH (20:35)
[2016-12-26 04:59] LABS: BASOPHILS % (AUTO) 0.1 % (0.0-3.0); HEMATOCRIT 30.6 % (37.0-47.0); HEMOGLOBIN 10.5 g/dl (12.0-16.0); IMMATURE GRANULOCYTE % (AUTO) 1.2 % (0.0-5.0); LYMPHOCYTES # (AUTO) 0.9 K/uL (0.60-3.4); LYMPHOCYTES % (AUTO) 5.8 (10.0-50.0); MEAN CORPUSCULAR HEMOGLOBIN 29.8 pg (27.0-31.0); MEAN CORPUSCULAR HGB CONC 34.3 (31.8-35.4); MEAN CORPUSCULAR VOLUME 86.9 fl (81.0-99.0); MONOCYTES # (AUTO) 0.5 K/uL (0.4-2.0); MONOCYTES % (AUTO) 3.1 (0-10); NEUTROPHILS # (AUTO) 13.7 K/ul (2.0-6.9); NEUTROPHILS % (AUTO) 89.8; PLATELET COUNT 462 10^3/uL (140-440); RED BLOOD COUNT 3.52 10^6/ul (4.20-5.40); WHITE BLOOD COUNT 15.32 K/ul (4.6-10.2)
[2016-12-26] MEDS: ATROVENT 0.02% NEB NEB SCH ×2 (05:13→17:02)
[2016-12-26 05:25] LABS: ALBUMIN 3.1 g/dL (3.4-5.0); ALBUMIN/GLOBULIN RATIO 0.82; BILIRUBIN,TOTAL 0.25 mg/dL (0.00-1.20); BUN/CREATININE RATIO 19.28; CALCIUM 10.1 mg/dL (8.2-10.2); CREATININE 1.97 mg/dL (0.60-1.30); TOTAL PROTEIN 6.9 g/dL (5.8-8.1)
[2016-12-26] MEDS: SOLU-CORTEF 250 MG IVP SCH ×4 (05:59→23:08)
[2016-12-26] MEDS: PROTONIX PO SCH ×2 (05:59→17:51)
[2016-12-26] MEDS: ROCEPHIN 1 GM in SODIUM CHLORIDE 50 ML IV SCH (08:35)
[2016-12-26] MEDS: ADVAIR 500-50 DISKUS IH SCH ×2 (08:36→20:22)
[2016-12-26] MEDS: PROAIR HFA IH SCH ×4 (08:36→20:22)
[2016-12-26] MEDS: FERROUS SULFATE PO SCH (08:37)
[2016-12-26] MEDS: CARDIZEM CD PO SCH (08:37)
[2016-12-26] MEDS: CALCIUM 500 + VIT D 200 MG TABLET PO SCH (08:37)
[2016-12-26] MEDS: ELIQUIS PO SCH ×2 (08:37→20:21)
[2016-12-26] MEDS: ZYLOPRIM PO SCH (08:38)
[2016-12-26] MEDS: PLAVIX PO SCH (08:38)
[2016-12-26] MEDS: LOPRESSOR PO SCH ×2 (08:38→20:21)
--- NOTE | 2016-12-26 09:18 | PN ---
DATE OF SERVICE: 12/25/16 SUBJECTIVE: The patient is an 81 year old white female hospitalized with pleuritic pain and COPD. The patient's condition has improved and her kidney functions are better and pleuritic pain is better. The patient is on antibiotics and steroids. The patient was seen and examined with Nurse Practitioner. PHYSICAL EXAMINATION: HEENT: Head normocephalic, atraumatic. Eyes: Extraocular muscles are intact. Pupils are equal, round and reactive to light and accommodation. Ears: No lesions. Nose appeared normal. Throat: No exudate or erythema. NECK: Supple. No JVD, no carotid bruit. No lymphadenopathy or thyromegaly. LUNGS: Decreased breath sounds. Clear to auscultation. Percussion note normal. Chest symmetrical. HEART: S1, S2, no S3. No murmurs. No cyanosis or clubbing. No ascites. Pulses: Dorsalis pedis and posterior tibial pulses +1 to +2 both sides. ABDOMEN: Soft. Nontender. Bowel sounds active. No CVA tenderness. No mass felt. EXTREMITIES: No edema. Full range of motion of all extremities, equal. NEUROLOGIC: No focal deficit. Cranial nerves II through XII are grossly intact. No headache, no double vision or headache. SKIN: Not dry. Intact. Turgor - normal. LYMPHATIC: No palpable lymph nodes/no lymphedema. MUSCULOSKELETAL: Normal joints with no swelling. Muscle tone is normal. LABS: hgb 10.7, hct 30, WBC 9,900 normal differential, creatinine 1.7, BUN 28. ASSESSMENT: 1. Pleuritic type of pain 2. Bronchitis 3. Possible pneumonitis 4. Chronic lung disease PLAN: 1. Counseling for smoking done 2. Advised to quit smoking 3. Continue IV fluids and antibiotics. TIME SPENT: More than 30 minutes. Plan and coordination of the patient's care discussed in the presence of nurse. NILDA
--- NOTE | 2016-12-26 09:51 | PCM.PROG ---
Attending Provider: ATTENDING PROVIDER[facility] DATE OF SERVICE: 12/26/16 SUBJECTIVE: This 81 year old WHITE/ F was hospitalized 12/24/16. The patient is seen with Rosi, Nurse Practitioner. The patient is alert, up and about this morning. She states she is feeling some better, breathing is some better. She is eating 50 to 100% of her meals. REVIEW OF SYSTEMS: CONSTITUTIONAL: No night sweats. No fatigue, malaise, lethargy. No fever or chills. HEENT: Eyes: No visual changes. No eye pain. No eye discharge. ENT: No runny nose. No epistaxis. No sinus pain. No odynophagia. No congestion. RESPIRATORY: No cough, no congestion. No hemoptysis. CARDIOVASCULAR: No angina symptoms. No CHF symptoms. No atypical chest pain for CAD. No palpitations. No shortness of breath. GASTROINTESTINAL: No abdominal pain. No nausea or vomiting. No diarrhea or constipation. No hematemesis. No hematochezia. GENITOURINARY: No urgency. No frequency. No dysuria. No hematuria. No obstructive symptoms. No discharge. No pain. No significant abnormal bleeding. MUSCULOSKELETAL: No musculoskeletal pain; no joint swelling. NEUROLOGICAL: Awake, alert, oriented to time, place and person. No headache. No neck pain. No syncope. No seizures. No dizziness. PSYCHIATRIC: Not anxious. No depression. No suicidal thoughts. No homicidal thoughts. SKIN: No rash. No lesions. No wounds. ENDOCRINE: No unexplained weight loss. No weight gain. HEMATOLOGIC/LYMPHATIC: No anemia. No purpura. No petechiae. No prolonged or excessive bleeding. No palpable lymph nodes. PHYSICAL EXAMINATION: GENERAL: The patient is awake, alert and oriented, lying in bed in no distress. VITAL SIGNS: Temperature 97.5 F, Pulse 16, Respiratory Rate 47, BP 120/60, Pulse Ox 95% HEENT: Head normocephalic, atraumatic. Eyes: Extraocular muscles are intact. Pupils are equal, round and reactive to light and accommodation. Ears: No lesions. Nose appeared normal. Throat: No exudate or erythema. NECK: Supple. No JVD, no carotid bruit. No lymphadenopathy or thyromegaly. LUNGS: Improved bilateral expiratory wheeze. Percussion note normal. Chest symmetrical. HEART: S1, S2, no S3. No murmurs. No cyanosis or clubbing. No ascites. Pulses: Dorsalis pedis and posterior tibial pulses +1 to +2 both sides. ABDOMEN: Soft. Non-tender. Bowel sounds active. No CVA tenderness. No mass felt. EXTREMITIES: No edema. Full range of motion of all extremities, equal. NEUROLOGIC: No focal deficit. Cranial nerves II through XII are grossly intact. No headache, no double vision or headache. SKIN: Not dry. Intact. Turgor-normal. LYMPHATIC: No palpable lymph nodes/no lymphedema. MUSCULOSKELETAL: Normal joints with no swelling. Muscle tone is normal. LAB REVIEW: 12/26/16 04:58 12/26/16 04:58 12/26/16 04:58: WBC 15.32 H D, RBC 3.52 L, Hgb 10.5 L, Hct 30.6 L, MCV 86.9, MCH 29.8, MCHC 34.3, RDW Coeff of Geraldo 14.1, Plt Count 462 H, Immature Gran % ( Auto) 1.2, Neut % (Auto) 89.8, Lymph % (Auto) 5.8 L, [place] % (Auto) 3.1, Eos % ( Auto) 0.0, Baso % (Auto) 0.1, Immature Gran # (Auto) 0.2, Neut # 13.7 H, Lymph # 0.9, [place] # 0.5, Eos # 0.0, Baso # 0.0, Sodium 136, Potassium 4.0, Chloride 96 L, Carbon Dioxide 25, Anion Gap 19.0, BUN 38 H, Creatinine 1.97 H, Estimated GFR (MDRD) 24.00, BUN/Creatinine Ratio 19.28, Glucose 141 H, Calcium 10.1, Total Bilirubin 0.25, AST 14 L, ALT 11 L, Alkaline Phosphatase 101, Total Protein 6.9, Albumin 3.1 L, Globulin 3.8, Albumin/Globulin Ratio 0.82 ASSESSMENT: 1. Acute COPD exacerbation 2. Chronic bronchitis 3. Long-term smoker PLAN: 1. PFT today 2. Discharge with IV fluids 3. Up and about walking today Plan and coordination of the patient's care discussed in the presence of General House Worker and nurse. CONDITION: Stable SCRIBED BY: PAOLA HARO Dormitory Maid scribed while in presence of service performed by Dr. [facility]/ROSI BOYER APRN on 12/26/16 ([id number])
--- NOTE | 2016-12-26 12:42 | HP ---
DATE OF SERVICE: 12/24/16 REASON FOR HOSPITALIZATION/HISTORY OF PRESENT ILLNESS: 81 year old white female with history of chronic lung disease and heavy smoking hospitalized with cough, congestion and shortness of breath of two week duration. The patient said that she also had sharp chest pain left sided off and on mainly with deep breathing mostly pleuritic type. The patient has also quit smoking two week ago. 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 REVIEW OF SYSTEMS: CONSTITUTIONAL: No night sweats. No fatigue, malaise, lethargy. No fever or chills. HEENT: Eyes: No visual changes. No eye pain. No eye discharge. ENT: No runny nose. No epistaxis. No sinus pain. No sore throat. No odynophagia. No ear pain. No congestion. RESPIRATORY: No cough, no congestion. No hemoptysis. CARDIOVASCULAR: No angina symptoms. No CHF symptoms. No atypical chest pain for CAD. No palpitations. No shortness of breath. GASTROINTESTINAL: No abdominal pain. No nausea or vomiting. No diarrhea or constipation. No hematemesis. No hematochezia. GENITOURINARY: No urgency. No frequency. No dysuria. No hematuria. No obstructive symptoms. No discharge. No pain. No significant abnormal bleeding. MUSCULOSKELETAL: No musculoskeletal pain. No joint swelling. No arthritis. NEUROLOGICAL: No headache. No neck pain. No syncope. No seizures. No dizziness. PSYCHIATRIC: Not anxious. No depression. No suicidal thoughts. No homicidal thoughts. SKIN: No rash. No lesions. No wounds. ENDOCRINE: No unexplained weight loss. No weight gain. HEMATOLOGIC/LYMPHATIC: No anemia. No purpura. No petechiae. No prolonged or excessive bleeding. No palpable lymph nodes. PERSONAL/FAMILY/SOCIAL HISTORY: The patient is living by herself and takes care of herself. She is heavy smoker with no alcohol abuse. She quit smoking two weeks ago. She does all activity of daily living. She has problem taking care of herself according to her, unable to cook on regular basis. 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 COPD Dependent edema Dyslipidemia Hypothyroidism Complete hysterectomy Tonsillectomy Cataract surgery Atrial fibrillation MEDICATIONS: Zocor 10mg PO bedtime Ferrous sulfate 160mg PO twice a day Calcium carbonate/Vitamin D3 1 PO daily Eliquis 2.5mg PO twice a day Ventolin one inhalation four times a day Plavix 75mg PO daily Advair 500-50 on puff twice a day Laxative 10mg PO bedtime PRN Cardizem CD 240mg PO daily Lasix tab 40mg PO MoWeFrSa Januvia 25mg PO bedtime Lopressor 25mg Po bedtime Allopurinol 200mg PO daily ALLERGIES: Pneumococcal vaccine PHYSICAL EXAMINATION: GENERAL: The patient is oriented to time, place and person. VITAL SIGNS: Temperature 98, pulse 78, respiratory rate 20, blood pressure 134/ 87 and pulse ox 88% on room air. HEENT: Head normocephalic, atraumatic. Eyes: Extraocular muscles are intact. Pupils are equal, round and reactive to light and accommodation. Ears: No lesions. Nose appeared normal. Throat: No exudate or erythema. NECK: Supple. No JVD, no carotid bruit. No lymphadenopathy or thyromegaly. LUNGS:Decreased breath sounds but clear to auscultation. Percussion note normal. Chest symmetrical. HEART: S1, S2, no S3. No murmurs. No cyanosis or clubbing. No ascites. Pulses: Dorsalis pedis and posterior tibial pulses +1 to +2 both sides. ABDOMEN: Soft. Nontender. Bowel sounds active. No CVA tenderness. No mass felt. EXTREMITIES: No edema. Full range of motion of all extremities, equal. NEUROLOGIC: No focal deficit. Cranial nerves II through XII are grossly intact. No headache, no double vision or headache. SKIN: Not dry. Intact. Turgor - normal. LYMPHATIC: No palpable lymph nodes/no lymphedema. MUSCULOSKELETAL: Normal joints with no swelling. Muscle tone is normal. LABS: hgb 11.3, hct 33, WBC 11,400 normal differential, creatinine 1.6, BUN 24, potassium 3.5. ABG's pO2 49, pCO2 27, pH 7.5 with 88% saturation. D-dimer 987. Chest x-ray cardiomegaly, no congestive heart failure, mild left lower lobe atelectasis verus infiltrate. Creatinine 1.6, BUN 24, BNP 488, ALT AST negative. ASSESSMENT: 1. Acute respiratory failure with worsening of COPD from continued smoking 2. Chest pain, very likely pleuritic type rule out ischemia or [place] 2. Pleuritic type of pain with possibility of pneumonia 3. Chronic lung disease, severe with smoking 4. Hypertension 5. Dyslipidemia 6. Atrial fibrillation 7. Diabetes mellitus PLAN: 1. Continue ProAir 2. Continue Eliquis 3. Continue Plavix 4. Continue Cardizem 5. Continue Lasix 6. Will add Solu-Cortef 125 Q 6 hours 7. Rocephin 8. IV fluids 9. Lopressor 10.Continue Advair, Zocor, Januvia, Xopenex and NEBS 11.Counseling done for smoking. 12.Will try to get records from Dr. Pittman CONDITION: Stable TIME SPENT: More than 70 minutes. MTDD
[2016-12-26] MEDS: JANUVIA PO SCH (20:22)
[2016-12-26] MEDS: ZOCOR PO SCH (20:22)
[2016-12-27 04:49] LABS: BASOPHILS % (AUTO) 0.2 % (0.0-3.0); HEMATOCRIT 32.4 % (37.0-47.0); HEMOGLOBIN 10.9 g/dl (12.0-16.0); IMMATURE GRANULOCYTE % (AUTO) 1.7 % (0.0-5.0); LYMPHOCYTES # (AUTO) 0.9 K/uL (0.60-3.4); LYMPHOCYTES % (AUTO) 5.8 (10.0-50.0); MEAN CORPUSCULAR HEMOGLOBIN 29.1 pg (27.0-31.0); MEAN CORPUSCULAR HGB CONC 33.6 (31.8-35.4); MEAN CORPUSCULAR VOLUME 86.6 fl (81.0-99.0); MONOCYTES # (AUTO) 0.4 K/uL (0.4-2.0); MONOCYTES % (AUTO) 2.8 (0-10); NEUTROPHILS # (AUTO) 13.5 K/ul (2.0-6.9); NEUTROPHILS % (AUTO) 89.5; PLATELET COUNT 496 10^3/uL (140-440); RED BLOOD COUNT 3.74 10^6/ul (4.20-5.40); WHITE BLOOD COUNT 15.09 K/ul (4.6-10.2)
[2016-12-27] MEDS: ATROVENT 0.02% NEB NEB SCH ×2 (05:10→16:59)
[2016-12-27 05:12] LABS: ALBUMIN 3.3 g/dL (3.4-5.0); ALBUMIN/GLOBULIN RATIO 0.89; ANION GAP 15.9; BILIRUBIN,TOTAL 0.23 mg/dL (0.00-1.20); BUN/CREATININE RATIO 23.86; CREATININE 1.76 mg/dL (0.60-1.30); POTASSIUM 3.9 mmol/L (3.5-5.10)
[2016-12-27] MEDS: LASIX TAB PO SCH (05:34)
[2016-12-27] MEDS: SOLU-CORTEF 250 MG IVP SCH ×3 (05:34→17:03)
[2016-12-27] MEDS: PROTONIX PO SCH ×2 (05:34→16:48)
[2016-12-27] MEDS: ROCEPHIN 1 GM in SODIUM CHLORIDE 50 ML IV SCH (08:26)
[2016-12-27] MEDS: ADVAIR 500-50 DISKUS IH SCH ×2 (08:28→20:19)
[2016-12-27] MEDS: PROAIR HFA IH SCH ×4 (08:29→20:19)
[2016-12-27] MEDS: ZYLOPRIM PO SCH (08:30)
[2016-12-27] MEDS: LOPRESSOR PO SCH ×2 (08:30→20:19)
[2016-12-27] MEDS: PLAVIX PO SCH (08:31)
[2016-12-27] MEDS: FERROUS SULFATE PO SCH (08:31)
[2016-12-27] MEDS: CARDIZEM CD PO SCH (08:31)
[2016-12-27] MEDS: ELIQUIS PO SCH ×2 (08:32→20:20)
[2016-12-27] MEDS: CALCIUM 500 + VIT D 200 MG TABLET PO SCH (08:32)
--- NOTE | 2016-12-27 10:18 | PCM.PROG ---
Attending Provider: [facility] SERV[facility]: 12/27/16 SUBJECTIVE: This 81 year old WHITE/ F was hospitalized 12/24/16. The patient had pleuritic type of pain. The patient's condition has steadily improved but seems to be alert but confused sitting in chair. Appetite has improved. REVIEW OF SYSTEMS: CONSTITUTIONAL: No night sweats. No fatigue, malaise, lethargy. No fever or chills. HEENT: Eyes: No visual changes. No eye pain. No eye discharge. ENT: No runny nose. No epistaxis. No sinus pain. No odynophagia. No congestion. RESPIRATORY: No cough, no congestion. No hemoptysis. CARDIOVASCULAR: No angina symptoms. No CHF symptoms. No atypical chest pain for CAD. No palpitations. No shortness of breath. GASTROINTESTINAL: No abdominal pain. No nausea or vomiting. No diarrhea or constipation. No hematemesis. No hematochezia. GENITOURINARY: No urgency. No frequency. No dysuria. No hematuria. No obstructive symptoms. No discharge. No pain. No significant abnormal bleeding. MUSCULOSKELETAL: No musculoskeletal pain; no joint swelling. NEUROLOGICAL: Awake, alert, confused. No headache. No neck pain. No syncope. No seizures. No dizziness. PSYCHIATRIC: Not anxious. No depression. No suicidal thoughts. No homicidal thoughts. SKIN: No rash. No lesions. No wounds. ENDOCRINE: No unexplained weight loss. No weight gain. HEMATOLOGIC/LYMPHATIC: No anemia. No purpura. No petechiae. No prolonged or excessive bleeding. No palpable lymph nodes. PHYSICAL EXAMINATION: GENERAL: The patient is awake, alert but confused, sitting in chair in no distress. VITAL SIGNS: Temperature 97.4 F, Pulse 61, Respiratory Rate 20, BP 132/64, Pulse Ox 94% HEENT: Head normocephalic, atraumatic. Eyes: Extraocular muscles are intact. Pupils are equal, round and reactive to light and accommodation. Ears: No lesions. Nose appeared normal. Throat: No exudate or erythema. NECK: Supple. No JVD, no carotid bruit. No lymphadenopathy or thyromegaly. LUNGS: Clear to auscultation. Percussion note normal. Chest symmetrical. HEART: S1, S2, no S3. No murmurs. No cyanosis or clubbing. No ascites. Pulses: Dorsalis pedis and posterior tibial pulses +1 to +2 both sides. ABDOMEN: Soft. Non-tender. Bowel sounds active. No CVA tenderness. No mass felt. EXTREMITIES: No edema. Full range of motion of all extremities, equal. NEUROLOGIC: No focal deficit. Cranial nerves II through XII are grossly intact. No headache, no double vision or headache. SKIN: Not dry. Intact. Turgor-normal. LYMPHATIC: No palpable lymph nodes/no lymphedema. MUSCULOSKELETAL: Normal joints with no swelling. Muscle tone is normal. LAB REVIEW: 12/27/16 04:46 12/27/16 04:46 12/27/16 04:46: WBC 15.09 H, RBC 3.74 L, Hgb 10.9 L, Hct 32.4 L, MCV 86.6, MCH 29.1, MCHC 33.6, RDW Coeff of Geraldo 14.0, Plt Count 496 H, Immature Gran % (Auto) 1.7, Neut % (Auto) 89.5, Lymph % (Auto) 5.8 L, [place] % (Auto) 2.8, Eos % (Auto) 0.0, Baso % (Auto) 0.2, Immature Gran # (Auto) 0.3, Neut # 13.5 H, Lymph # 0.9, [place] # 0.4, Eos # 0.0, Baso # 0.0, Sodium 137, Potassium 3.9, Chloride 97 L, Carbon Dioxide 28, Anion Gap 15.9, BUN 42 H, Creatinine 1.76 H, Estimated GFR ( MDRD) 28.00, BUN/Creatinine Ratio 23.86, Glucose 162 H, Calcium 10.0, Total Bilirubin 0.23, AST 16, ALT 15, Alkaline Phosphatase 102, Total Protein 7.0, Albumin 3.3 L, Globulin 3.7, Albumin/Globulin Ratio 0.89 ASSESSMENT: 1. Pleuritic pain with COPD exacerbation PLAN: 1. Give inhalers, nebs treatment and steroids 2. Continue Januvia 3. A1C Plan and coordination of the patient's care discussed in the presence of Legal Services Manager and nurse. CONDITION: Stable SCRIBED BY: PAOLA HARO Manager Of Financial scribed while in presence of service performed by Dr. [facility] on 12/27/16 ([id number])
--- NOTE | 2016-12-27 13:07 | PN ---
DATE OF SERVICE: 12/26/16 SUBJECTIVE: The patient is an 81 year old white female hospitalized with acute pleuritic pain, bronchitis, chronic lung disease and hypoxemia. The patient's condition has steadily improved as she does not have any pleuritic pain. The patient was seen and examined with Nurse Practitioner and patient case coordinator. Planning was done. PHYSICAL EXAMINATION: HEENT: Head normocephalic, atraumatic. Eyes: Extraocular muscles are intact. Pupils are equal, round and reactive to light and accommodation. Ears: No lesions. Nose appeared normal. Throat: No exudate or erythema. NECK: Supple. No JVD, no carotid bruit. No lymphadenopathy or thyromegaly. LUNGS: Clear to auscultation. Percussion note normal. Chest symmetrical. HEART: S1, S2, no S3. No murmurs. No cyanosis or clubbing. No ascites. Pulses: Dorsalis pedis and posterior tibial pulses +1 to +2 both sides. ABDOMEN: Soft. Nontender. Bowel sounds active. No CVA tenderness. No mass felt. EXTREMITIES: No edema. Full range of motion of all extremities, equal. NEUROLOGIC: No focal deficit. Cranial nerves II through XII are grossly intact. No headache, no double vision or headache. SKIN: Not dry. Intact. Turgor - normal. LYMPHATIC: No palpable lymph nodes/no lymphedema. MUSCULOSKELETAL: Normal joints with no swelling. Muscle tone is normal. CONDITION: Stable. PLAN: 1. Discontinue IV fluids 2. Up and about 3. Strongly advised to quit smoking and hasn't smoked for two done. 4. Counseling done for smoking. TIME SPENT: More than 30 minutes. Plan and coordination of the patient's care discussed in the presence of nurse. NILDA
--- NOTE | 2016-12-27 14:36 | HP ---
DATE OF SERVICE: 12/24/16 HISTORY OF PRESENT ILLNESS: The patient came in complaining of shortness of breath for the past two weeks, a low grade temperature of 100.5.S he stated that she had not smoked in two weeks and was still feeling worse. 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 She hasn't had any pain since she quit smoking. She stated she had a coughing spell this morning and felt her shortness of breath was worse. She arrived by ambulance. Her normal primary care provider is Adriana Taylor. The patient has a long history of smoking and history of COPD. REVIEW OF SYSTEMS: CONSTITUTIONAL: Low grade fever, malaise and weakness. HEENT: Unremarkable. No nasal drainage. No blurred vision. No sore throat. RESPIRATORY: Complains of shortness of air, cough. No hemoptysis. CARDIOVASCULAR: No angina symptoms. No CHF symptoms. No atypical chest pain for CAD. No palpitations. No shortness of breath. No orthopnea. GASTROINTESTINAL: Positive for some nausea. No abdominal pain. No vomiting. No diarrhea or constipation. No hematemesis. No hematochezia. GENITOURINARY: No urgency. No frequency. No dysuria. No hematuria. No obstructive symptoms. No discharge. No pain. No significant abnormal bleeding. MUSCULOSKELETAL: Generalized weakness. Full range of motion of joints. No joint swelling or redness. NEUROLOGICAL: The patient is alert and oriented times three. No headache. No neck pain. No syncope. No seizures. No dizziness. PSYCHIATRIC: Not anxious. No depression. No suicidal thoughts. No homicidal thoughts. SKIN: Intact with no breakdown. ENDOCRINE: No unexplained weight loss. No weight gain. HEMATOLOGIC/LYMPHATIC: No anemia. No purpura. No petechiae. No prolonged or excessive bleeding. No palpable lymph nodes. SOCIAL HISTORY; The patient currently lives alone. She still drives. She is an every day smoker and smoked at least one pack per day for the past 40 years. She denies any alcohol or illicit drug use. PAST MEDICAL: 1. COPD 2. DIABETES MELLITUS TYPE 2 3. ASTHMA 4. CORONARY ARTERY DISEASE 5. DYSLIPIDEMIA 6. HISTORY OF ATRIAL FIBRILLATION ON ELIQUIS 7. HISTORY OF LEG EDEMA 8. HYPERTENSION 9. HISTORY OF GOUT 10. OSTEOARTHRITIS PAST SURGICAL HISTORY: 1. COMPLETE HYSTERECTOMY 2. 3. CARPAL TUNNEL REPAIR PHYSICAL EXAMINATION: APPEARANCE: The patient is ill-appearing, well-nourished. The patient appears in moderate distress. VITAL SIGNS: (On admission to ER) Temperature was 100.5, pulse 110, respiratory rate 31, BP 103/77, pulse ox 90. HEENT: Head normocephalic, atraumatic. Eyes: Extraocular muscles are intact. Pupils are equal, round and reactive to light and accommodation. Ears: No lesions. Nose appeared normal. Throat: No exudate or erythema. NECK: Supple. No JVD, no carotid bruit. No lymphadenopathy or thyromegaly. LUNGS: Diminished breath sounds bilaterally with bilateral rhonchi and mild expiratory wheezes. HEART: S1, S2, no S3. Regular rate and rhythm with no clicks or rubs. The patient is slightly tachycardic due to fever. No cyanosis or clubbing. No ascites. Pulses: Dorsalis pedis and posterior tibial pulses +1 to +2 both sides. ABDOMEN: Soft. Nontender. Bowel sounds active times four quadrants. No CVA tenderness. No mass felt. EXTREMITIES: No edema. Full range of motion of all extremities, equal. No swelling. No calf tenderness. NEUROLOGIC: The patient is alert and oriented times three. Psych/mood and affect are appropriate No focal deficit. Cranial nerves II through XII are grossly intact. No headache, no double vision or headache. SKIN: Intact. Warm and dry. Normal color. LYMPHATIC: No palpable lymph nodes/no lymphedema. MUSCULOSKELETAL: Normal joints with no swelling. Muscle tone is normal. LABS: Hemoglobin 11.3, hematocrit 33.3, white count 11.43, platelets 443. Sodium 137, potassium 3.5, chloride 97, BUN 24, creatinine 1.61, glucose 134. ABGs 02 saturation 88, pH 7.501, pc02 33.4, p02 49, HC03 26.1, total C02 27, base excess of 3. Total CK was 20, troponin I undetectable. BNP 488, total protein 7.2, albumin 3.2. EKG showed tachycardia with atrial fibrillation and RVR which is normal for this patient. Chest x-ray showed cardiomegaly with no overt pulmonary edema, mild left lower lobe atelectasis and/or infiltrate. ASSESSMENT: 1. ACUTE COPD EXACERBATION 2. POSSIBLE LEFT LOWER LOBE PNEUMONIA 3. CHEST PAIN 4. FEVER 5. CARDIOMEGALY PLAN: 1. Will admit as an inpatient. 2. Will place on IV Solu-Cortef 125 mg q.6hr. 3. Rocephin 1 gm q.24hr. 4. Will start Atrovent nebulizer b.i.d. along with Advair Diskus b.i.d. 5. Routine telemetry orders. 6. Eliquis for atrial fibrillation. 7. CBC, CMP daily. 8. Will monitor ABGs closely. 9. Will continue Allopurinol for history of gout. 10. ProAir inhaler one puff q.i.d. as needed. 11. Tylenol 650 mg q.4hr for fever. 12. Will continue Plavix, Cardizem and Lasix as scheduled for home medications. 13. Will give IV fluids at 40 mLs/hr. 14. Will continue Januvia for diabetes. 15. Will repeat chest x-ray on Sunday. 16. Will continue to monitor. 17. Will do PFT on Sunday. TIME SPENT: More than 70 minutes. MTDD
[2016-12-27] MEDS: OMNICEF PO SCH (20:20)
[2016-12-27] MEDS: JANUVIA PO SCH (20:20)
[2016-12-27] MEDS: ZOCOR PO SCH (20:21)
[2016-12-28] MEDS: SOLU-CORTEF 250 MG IVP SCH ×3 (00:42→12:34)
[2016-12-28 05:02] VITALS: BP 134/60; TEMP 97
[2016-12-28] MEDS: PROTONIX PO SCH (05:29)
[2016-12-28 05:32] LABS: BASOPHILS % (AUTO) 0.1 % (0.0-3.0); EOSINOPHILS % (AUTO) 0.1 % (0.0-7.0); HEMATOCRIT 30.5 % (37.0-47.0); HEMOGLOBIN 10.5 g/dl (12.0-16.0); LYMPHOCYTES # (AUTO) 0.8 K/uL (0.60-3.4); LYMPHOCYTES % (AUTO) 7.5 (10.0-50.0); MEAN CORPUSCULAR HEMOGLOBIN 29.6 pg (27.0-31.0); MEAN CORPUSCULAR HGB CONC 34.4 (31.8-35.4); MEAN CORPUSCULAR VOLUME 85.9 fl (81.0-99.0); MONOCYTES # (AUTO) 0.5 K/uL (0.4-2.0); MONOCYTES % (AUTO) 4.2 (0-10); NEUTROPHILS # (AUTO) 9.4 K/ul (2.0-6.9); NEUTROPHILS % (AUTO) 86.1; PLATELET COUNT 444 10^3/uL (140-440); RED BLOOD COUNT 3.55 10^6/ul (4.20-5.40); WHITE BLOOD COUNT 10.91 K/ul (4.6-10.2)
[2016-12-28] MEDS: ATROVENT 0.02% NEB NEB SCH (05:58)
[2016-12-28 06:00] LABS: ALBUMIN/GLOBULIN RATIO 0.97; ANION GAP 15.3; BILIRUBIN,TOTAL 0.25 mg/dL (0.00-1.20); BUN/CREATININE RATIO 28.84; CALCIUM 9.6 mg/dL (8.2-10.2); CREATININE 1.56 mg/dL (0.60-1.30); POTASSIUM 3.3 mmol/L (3.5-5.10); TOTAL PROTEIN 6.1 g/dL (5.8-8.1)
[2016-12-28] MEDS ORDERED: K-DUR PO STA (08:15)
[2016-12-28] MEDS: OMNICEF PO SCH (08:53)
[2016-12-28] MEDS: FERROUS SULFATE PO SCH (08:54)
[2016-12-28] MEDS: PLAVIX PO SCH (08:54)
[2016-12-28] MEDS: LOPRESSOR PO SCH (08:55)
[2016-12-28] MEDS: ELIQUIS PO SCH (08:55)
[2016-12-28] MEDS: CALCIUM 500 + VIT D 200 MG TABLET PO SCH (08:55)
[2016-12-28] MEDS: ZYLOPRIM PO SCH (08:56)
[2016-12-28] MEDS: CARDIZEM CD PO SCH (08:57)
[2016-12-28] MEDS: PROAIR HFA IH SCH ×2 (08:58→12:32)
[2016-12-28] MEDS: ADVAIR 500-50 DISKUS IH SCH (08:58)
--- NOTE | 2016-12-28 10:18 | CM.DICTOOL ---
ADMISSION: 12/24/16 12:29 DISCHARGE: December 28, 2016 DATE OF SERVICE: 12/28/16 FINAL DIAGNOSIS COPD exacerbation Chest pain CAD History of Atrial Fibrillation, on Eliquis Diabetes Mellitus, type 2 Dyslipidemia History of Leg Edema Hypertension Osteoarthritis History of Gout Hysterectomy LAST VITALS Temp Pulse Resp BP Pulse Ox 97.0 F L 62 18 134/60 98 12/28/16 05:01 12/28/16 05:01 12/28/16 08:00 12/28/16 05:01 12/28/16 05:56 ACTIVE MEDICATIONS Albuterol Sulfate (Proair Hfa) 1 puff IH QID [facility] Last Admin: 12/28/16 08:58 Dose: 1 puff Allopurinol (Zyloprim) 100 mg PO DAILY [facility] Last Admin: 12/28/16 08:56 Dose: 100 mg Apixaban (Eliquis) 2.5 mg PO BID [facility] Last Admin: 12/28/16 08:55 Dose: 2.5 mg Bisacodyl (Dulcolax) 10 mg PO BEDTIME PRN PRN Reason: CONSTIPATION Calcium/Vitamin D (Calcium 500 + Vit D 200 Mg Tablet) 1 each PO DAILY [facility] Last Admin: 12/28/16 08:55 Dose: 1 each Clopidogrel Bisulfate (Plavix) 75 mg PO DAILY [facility] Last Admin: 12/28/16 08:54 Dose: 75 mg Diltiazem HCl (Cardizem Cd) 240 mg PO DAILY [facility] Last Admin: 12/28/16 08:57 Dose: 240 mg Ferrous Sulfate (Ferrous Sulfate) 160 mg PO DAILY [facility] Last Admin: 12/28/16 08:54 Dose: 324 mg Furosemide (Lasix Tab) 40 mg PO MoWeFrSa@0630 [facility] Last Admin: 12/27/16 05:34 Dose: 40 mg Albuterol for nebulizer QID Last Admin: Metoprolol Tartrate (Lopressor) 50 mg PO BID [facility] Last Admin: 12/28/16 08:55 Dose: 50 mg [facility]oprazole [facility]) [facility] Admin: 12/28/16 05:29 Dose: 40 mg Fluticasone/Salmeterol (Advair 500-50 Diskus) 1 puff IH BID [facility] Last Admin: 12/28/16 08:58 Dose: 1 puff Simvastatin (Zocor) 10 mg PO BEDTIME [facility] Last Admin: 12/27/16 20:21 Dose: 10 mg Sitagliptin Phosphate (Januvia) 25 mg PO BEDTIME [facility] Last Admin: 12/27/16 20:20 Dose: 25 mg ALLERGIES pneumococcal vaccine Adverse Reaction (Verified 12/24/16 13:16) Swelling NEW PRESCRIPTIONS: Prednisone 10 mg take 1 twice a day for 5 days Omnicef 300 mg take 1 twice a day for 7 days SMOKING: Encouraged to stop smoking, reports she stopped 2 weeks ago DISEASE SPECIFIC EDUCATION: Appointment Medications Elevate legs when sitting Resume home nebulizer treatments LAB REVIEW: 12/28/16 05:20 12/28/16 05:20 12/28/16 05:20: WBC 10.91 H, RBC 3.55 L, Hgb 10.5 L, Hct 30.5 L, MCV 85.9, MCH 29.6, MCHC 34.4, RDW Coeff of Geraldo 14.0, Plt Count 444 H, Immature Gran % (Auto) 2.0, Neut % (Auto) 86.1, Lymph % (Auto) 7.5 L, Benton % (Auto) 4.2, Eos % (Auto) 0.1, Baso % (Auto) 0.1, Immature Gran # (Auto) 0.2, Neut # 9.4 H, Lymph # 0.8, Benton # 0.5, Eos # 0.0, Baso # 0.0, Sodium 138, Potassium 3.3 L, Chloride 99, Carbon Dioxide 27, Anion Gap 15.3, BUN 45 H, Creatinine 1.56 H, Estimated GFR ( MDRD) 32.00, BUN/Creatinine Ratio 28.84, Glucose 171 H, Calcium 9.6, Total Bilirubin 0.25, AST 12 L, ALT 15, Alkaline Phosphatase 92, Total Protein 6.1, Albumin 3.0 L, Globulin 3.1, Albumin/Globulin Ratio 0.97 PLAN: Discharge home Diet: Consistent Carbohydrate, heart healthy Activty: Gradually resume as tolerated No changes in home medications Continue use of oxygen at 3 liters at night and as needed during the day Resume home nebulizer treatments 3-4 times daily Elevate legs when sitting in the chair An appointment is scheduled with Adriana Taylor APRN at [facility] on January 03, 2017 at 11am Ms Guy is alert to person. She is disoriented at times to surroundings, but reorients easily. She is forgetful at times. She is independent with ADL's and is ambulatory with use of a walker. She has home oxygen; concentrator and portability for her use at home. She has a nebulizer at home for 4 time daily breathing treatments. Meal intake is good at 75-100%. Skin is intact and free of decubitus, rashes or irritation. Tommy Morel MD Rosi Isbell APRN
--- NOTE | 2016-12-28 10:51 | PCM.PROG ---
Attending Provider: ATTENDING PROVIDER: [facility] DATE OF SERVICE: 12/28/16 SUBJECTIVE: This 81 year old WHITE/ F was hospitalized 12/24/16. The patient is seen with Rosi, Nurse Practitioner. The patient is alert, lying in bed, states she feels better today. Her cough is improved, She is eating well. She has no fever. REVIEW OF SYSTEMS: CONSTITUTIONAL: No night sweats. No fatigue, malaise, lethargy. No fever or chills. HEENT: Eyes: No visual changes. No eye pain. No eye discharge. ENT: No runny nose. No epistaxis. No sinus pain. No odynophagia. No congestion. RESPIRATORY: Cough. No hemoptysis. CARDIOVASCULAR: No angina symptoms. No CHF symptoms. No atypical chest pain for CAD. No palpitations. No shortness of breath. GASTROINTESTINAL: No abdominal pain. No nausea or vomiting. No diarrhea or constipation. No hematemesis. No hematochezia. GENITOURINARY: No urgency. No frequency. No dysuria. No hematuria. No obstructive symptoms. No discharge. No pain. No significant abnormal bleeding. MUSCULOSKELETAL: No musculoskeletal pain; no joint swelling. NEUROLOGICAL: Awake, alert, oriented to person. No headache. No neck pain. No syncope. No seizures. No dizziness. PSYCHIATRIC: Not anxious. No depression. No suicidal thoughts. No homicidal thoughts. SKIN: No rash. No lesions. No wounds. ENDOCRINE: No unexplained weight loss. No weight gain. HEMATOLOGIC/LYMPHATIC: No anemia. No purpura. No petechiae. No prolonged or excessive bleeding. No palpable lymph nodes. PHYSICAL EXAMINATION: GENERAL: The patient is awake, alert and oriented, lying/sitting in bed in no distress. VITAL SIGNS: Temperature 97.0 F, Pulse 62, Respiratory Rate 20, BP 134/60, Pulse Ox 98% HEENT: Head normocephalic, atraumatic. Eyes: Extraocular muscles are intact. Pupils are equal, round and reactive to light and accommodation. Ears: No lesions. Nose appeared normal. Throat: No exudate or erythema. NECK: Supple. No JVD, no carotid bruit. No lymphadenopathy or thyromegaly. LUNGS: Diminished breath sounds bilaterally. No wheezing. Clear to auscultation. Percussion note normal. Chest symmetrical. HEART: S1, S2, no S3. No murmurs. No cyanosis or clubbing. No ascites. Pulses: Dorsalis pedis and posterior tibial pulses +1 to +2 both sides. ABDOMEN: Soft. Non-tender. Bowel sounds active. No CVA tenderness. No mass felt. EXTREMITIES: No edema. Full range of motion of all extremities, equal. NEUROLOGIC: No focal deficit. Cranial nerves II through XII are grossly intact. No headache, no double vision or headache. SKIN: Not dry. Intact. Turgor-normal. LYMPHATIC: No palpable lymph nodes/no lymphedema. MUSCULOSKELETAL: Normal joints with no swelling. Muscle tone is normal. LAB REVIEW: 12/28/16 05:20 12/28/16 05:20 12/28/16 05:20: WBC 10.91 H, RBC 3.55 L, Hgb 10.5 L, Hct 30.5 L, MCV 85.9, MCH 29.6, MCHC 34.4, RDW Coeff of Geraldo 14.0, Plt Count 444 H, Immature Gran % (Auto) 2.0, Neut % (Auto) 86.1, Lymph % (Auto) 7.5 L, Irwin % (Auto) 4.2, Eos % (Auto) 0.1, Baso % (Auto) 0.1, Immature Gran # (Auto) 0.2, Neut # 9.4 H, Lymph # 0.8, Irwin # 0.5, Eos # 0.0, Baso # 0.0, Sodium 138, Potassium 3.3 L, Chloride 99, Carbon Dioxide 27, Anion Gap 15.3, BUN 45 H, Creatinine 1.56 H, Estimated GFR ( MDRD) 32.00, BUN/Creatinine Ratio 28.84, Glucose 171 H, Calcium 9.6, Total Bilirubin 0.25, AST 12 L, ALT 15, Alkaline Phosphatase 92, Total Protein 6.1, Albumin 3.0 L, Globulin 3.1, Albumin/Globulin Ratio 0.97 ASSESSMENT: 1. Pleuritic pain with COPD exacerbation 2. Atrial fibrillation PLAN: 1. Discharge home 2. Omnicef 300 mg b.i.d. for 7 days 3. Prednsione 10 mg p.o. b.i.d for 5 days 4. One dose of potassium 40 meq today 5. Followup with Adriana Taylor Sunday or Sunday 6. 02 and nebs at home. Plan and coordination of the patient's care discussed in the presence of Cloth Hauler and nurse. CONDITION: Stable SCRIBED BY: PAOLA HARO Tree Planter scribed while in presence of service performed by Dr. [facility]/ROSI BOYER APRN on 12/28/16 (0750)
--- NOTE | 2016-12-29 11:19 | DS ---
DATE OF SERVICE: 12/28/16 FINAL DIAGNOSIS: 1. COPD exacerbation 2. Chest pain 3. Coronary artery disease 4. History of Atrial Fibrillation, on Eliquis 5. Diabetes Mellitus, type 2 6. Dyslipidemia 7. History of Leg edema 8. Hypertension 9. Osteoarthritis 10.History of Gout 11.Hysterectomy LAST VITALS: Temperature 97, pulse 62, respiratory rate 18, blood pressure 134/60 and pulse ox 98% DISCHARGE INSTRUCTIONS: Discharge home. NO changes in home medications. Continue use of oxygen at 3 liters at night and as needed during the day. Resume home nebulizer treatments 3 -4 times daily. Elevate legs when sitting in the chair. An appointment is scheduled with Adriana Taylor APRN at [facility] on January 03, 2017 MEDICATIONS AT DISCHARGE: ProAir 1 puff IH four times a day Zyloprim 100mg PO daily Eliquis 2.5mg PO twice a day Dulcolax 10mg PO bedtime Calcium 500+Vitamine D 200mg one each PO daily Plavix 75mg PO daily Cardizem CD 240mg PO daily Ferrous Sulfate 160mg PO daily Lasix Tab 40mg PO MoWeFrSa@ 630 Lopressor 50mg PO twice a day Protonix 40mg Po twice a day Advair 500-50 Diskus one puff IH twice a day Zocor 10mg PO bedtime Januvia 25mg Po bedtime ALLERGIES: Pneumococcal vaccine NEW PRESCRIPTIONS: Prednisone 10mg take one twice a day for 5 days Omnicef 300mg take one twice a day for 7 days DIET INSTRUCTIONS: Consistent Carbohydrate, heart healthy ACTIVITY: Gradually resume as tolerated SMOKING: Encouraged to stop smoking, reports she stopped two weeks ago. DISEASE SPECIFIC EDUCATION: Appointment Medications Elevate legs when sitting Resume home nebulizer treatments. HOSPITAL COURSE: The patient was admitted on 12/24/16 through the emergency room. She came in after reporting that she had been feeling short of breath for the past 4 days which was worsening. She had had some sharp shooting pains in her chest along with her shortness of breath, she had been coughing. She has a long history of COPD. She states that she has quit smoking two weeks prior. She has a history fo stent, atrial fibrillation and she sees Adriana Taylor at the [facility]. She uses O2 at home but states that and he nebulizers were not helping. She was subsequently admitted to the floor and placed on IV Solu-Cortef 125mg Q 6 hours along with Rocephin 1gram daily. She was placed on Xopenex, NEBS treatment Q 6 hours. The patient has low grade temperature of 100.9 when she was first admitted. On the day of discharge she has been afebrile for several days and temperature was 97 even, heart rate 62, respirations 20, blood pressure 134/60 and pulse ox 98%. Her chest x-ray showed no pneumonia although it was consistent with acute bronchitis. She did show some cardiomegaly. Dr. Morel performed a 2D-M mode echo of her heart. The patient has steadily improved. BNP on admission was 488, cardiac enzymes remained normal. Today on the day of discharge she does have chronic kidney disease. Her kidney function is unchanged from admission; BUN 45, creatinine 1.56, sodium 138, potassium 3.3 and we will give her 40meq of Potassium before she goes home. WBC has improved at 10.9, hgb 10.5, hct 30.5, plt count 444. For the past several days that patient has showed significant improvement and she was ready to go home yesterday although she didn't have a ride from her daughter or son. She will be going home today. She has been up and about walking around with the assistance of the walker. She has nebulizer and oxygen at home which she will continue the nebulizer treatments Q 4-6 hours. We will send her home on Omnicef 300mg PO twice a day for the next 7 days along with Prednisone 10mg twice a day for the next 5 days. She has an appointment to see Adriana Taylor next Sunday in [place] to followup. Education has been provided to her to continue not smoking as she has not been smoking for the past two weeks. We have encouraged her to elevate her legs while she is sitting. Her family is present at time of discharge this morning and is in agreement with the plan of care. She will discharged home today. TIME SPENT: More than 60 minutes. NILDA
--- NOTE | 2017-01-01 14:52 | PN ---
DATE OF SERVICE: 12/28/16 DISCHARGE NOTE SUBJECTIVE: The patient is an 81 year old white female hospitalized with COPD, chest pain pleuritic type. The patient's condition has steadily improved. The patient was treated with the IV antibiotics, steroids and NEBS treatment. The patient's said that she has quit smoking two weeks ago and strongly advised to quit smoking and counseling for smoking done. The patient was seen and examined with Nurse Practitioner, customer solutions teammate. PHYSICAL EXAMINATION: VITAL SIGNS: Stable with temperature 97, pulse 62, respiratory rate 20, blood pressure 134/60 and pulse ox 98%. HEENT: Head normocephalic, atraumatic. Eyes: Extraocular muscles are intact. Pupils are equal, round and reactive to light and accommodation. Ears: No lesions. Nose appeared normal. Throat: No exudate or erythema. NECK: Supple. No JVD, no carotid bruit. No lymphadenopathy or thyromegaly. LUNGS: Decreased breath sounds but clear to auscultation. Percussion note normal. Chest symmetrical. HEART: S1, S2, no S3. No murmurs. No cyanosis or clubbing. No ascites. Pulses: Dorsalis pedis and posterior tibial pulses +1 to +2 both sides. ABDOMEN: Soft. Nontender. Bowel sounds active. No CVA tenderness. No mass felt. EXTREMITIES: No edema. Full range of motion of all extremities, equal. NEUROLOGIC: No focal deficit. Cranial nerves II through XII are grossly intact. No headache, no double vision or headache. SKIN: Not dry. Intact. Turgor - normal. LYMPHATIC: No palpable lymph nodes/no lymphedema. MUSCULOSKELETAL: Normal joints with no swelling. Muscle tone is normal. ASSESSMENT: 1. Chronic kidney disease with creatinine 1.5 and BUN 45 PLAN: 1. Omnicef 300mg twice a day for 7 days 2. Prednisone 10mg twice a day for 5 days. 3. The patient is to followup with Dr. Taylor to be seen on Sunday. The discharge plan was done and the patient was discharged in stable condition to be followed by Dr. Taylor. TIME SPENT: More than 30 minutes. Plan and coordination of the patient's care discussed in the presence of nurse. NILDA
--- NOTE | 2017-01-01 14:53 | PN ---
12/24/16: Level 5 12/25/16: Intermediate 12/26/16: Intermediate 12/27/16: Intermediate 12/28/16: D as in discharge MTDD
== END 2016-12-28 14:46 | disposition home or self-care (01) | DRG 192 ==
LOC: ED 11:08 → MEDSURG A 12:29
PROVIDERS: ADMIT Internal Medicine; ATTEND Internal Medicine
DX: J44.1 Chronic obstructive pulmonary disease with (acute) exacerbation (principal); R07.9 Chest pain, unspecified; R09.1 Pleurisy; R10.12 Left upper quadrant pain; R06.02 Shortness of breath; I48.91 Unspecified atrial fibrillation; I25.10 Atherosclerotic heart disease of native coronary artery without angina pectoris; E11.9 Type 2 diabetes mellitus without complications; E78.5 Hyperlipidemia, unspecified; R60.0 Localized edema; I10 Essential (primary) hypertension; M19.90 Unspecified osteoarthritis, unspecified site; R50.9 Fever, unspecified; I25.2 Old myocardial infarction; F17.210 Nicotine dependence, cigarettes, uncomplicated; Z79.01 Long term (current) use of anticoagulants; Z79.899 Other long term (current) drug therapy; Z87.39 Personal history of other diseases of the musculoskeletal system and connective tissue
CPT/HCPCS: 36415; 80053; 82550; 82803; 82962; 83036; 83880; 84484; 85025; 85379; 87040; 93005; 93010; 94640; 96366; 96374; 96375; 99223; 99232; 99239; 99284

== ENCOUNTER 2017-04-20 12:23 | Outpatient (CLI) ==
--- NOTE | 2017-04-23 08:09 | MAMMO ---
EXAM: Digital screening mammogram with tomosynthesis HISTORY: Screening COMPARISON: 04/20/2016 FINDINGS: Digital MLO and CC views of the right and left breast were performed. Tomosynthesis was performed. Computer aided detection was utilized. There are scattered fibroglandular densities. Th ere is no evidence for mass, asymmetry, distortion, or suspicious calcifications in either breast. IMPRESSION: 1. No evidence of malignancy in the right or left breast. 2. Annual screening mammogram is recommended in one year. BIRADS category 1, negative examination
== END 2017-04-20 12:24 | disposition home or self-care (01) ==
LOC: RAD 12:23
PROVIDERS: ATTEND Physician Assistant Medical
DX: Z12.31 Encounter for screening mammogram for malignant neoplasm of breast (principal)
CPT/HCPCS: 77067

== ENCOUNTER 2017-05-27 10:47 | Inpatient (IN) ==
[2017-05-27] MEDS ORDERED: CARDIZEM INJ IVP STA ×2 (11:04→11:13)
[2017-05-27] MEDS ORDERED: SOLU-MEDROL 125 MG IVP STA (11:14)
[2017-05-27] MEDS ORDERED: DUONEB NEB STA (11:15)
[2017-05-27] MEDS ORDERED: SOLU-MEDROL 40 MG IVP STA ×2 (11:19→22:10)
[2017-05-27] MEDS: CARDIZEM INJ 125 MG in SODIUM CHLORIDE 100 ML IV SCH (11:29)
[2017-05-27] MEDS ORDERED: ROCEPHIN 1 GM in SODIUM CHLORIDE 50 ML IV STA (12:51)
[2017-05-27] MEDS ORDERED: ROCEPHIN ONE (13:25)
[2017-05-27] MEDS ORDERED: SODIUM CHLORIDE 1,000 ML IV STA ×2 (13:30→13:33)
[2017-05-27] MEDS ORDERED: SODIUM CHLORIDE 1,000 ML IV SCH ×2 (14:00→15:51)
--- NOTE | 2017-05-27 14:13 | ED.PDOC ---
General ED Provider: Dr. ARIN FRIEDMAN Chief Complaint: Shortness of Air Stated Complaint: cough, wheez short of air Time Seen by Physician: 11:00 (ss of breath x a few hours ) Mode of Arrival: Stretcher Information Source: Patient, EMT Exam Limitations: No limitations Primary Care Provider: PITER OSMAN Nursing and Triage Documentation Reviewed and Agree: Yes Reviewed sepsis parameters & appropriate labs ordered?: Yes System Inflammatory Response Syndrome: Not Applicable Sepsis Protocol: For patient's 13 years and over: Temp is 96.8 and below OR 101 and greater Pulse >90 BPM Resp >20/minute Acutely Altered Mental Status Are patient's symptoms suggestive of a new infection, such as: -Pneumonia -Skin, Soft Tissue -Endocarditis -UTI -Bone, Joint Infection -Implantable Device -Acute Abdominal Infection -Wound Infection -Meningitis -Blood Stream Catheter Infection -Unknown Respiratory Complaint Exam - Respiratory Complaint/Exam Onset/Duration: today Symptoms Are: Still present Timing: Intermittent Initial Severity: Mild Current Severity: Mild Character: Reports: Non-productive cough Aggravating: Reports: Weather, Deep breaths, Recumbent position Alleviating: Reports: Bronchodilators, Spontaneous resolution Associated Signs and Symptoms: Reports: Dyspnea, Chills, URI, Nasal congestion. Denies: Rapid breathing, Fever, Chest pain, Pleuritic chest pain, Wheezing, Hemoptysis, Dizziness, Calf pain, Calf swelling, Edema, Hoarseness, Sinus discomfort, Vomiting, Sore throat, Weight loss, Decreased oral intake, Increased thirst, Increased appetite, Increased urination Related History: Reports: Similar episode History of Healthcare-Acquired Pneumonia: No Related Surgical History: Reports: None Pulmonary Embolism Risk Factors: None Cardiac Risk Factors: Reports: Prior SC, Diabetes, Hypertension Pseudomonas Risk Factors: Reports: Chronic Lung Disease Tuberculosis Risk Factors: Reports: None Status Asthmaticus Risk Factors: Reports: None Home Oxygen Use: No Recent Stress Test: No Recent Echo/LV Function: No Current Antibiotic Use: No Current Asthma Medication Use: No Respiratory Distress: None Inadequate Respiratory Effort: No Dysphagia Present: No Stridor Present: No JVD Present: No Accessory Muscle Use: No Retractions: Not Present Diminished Breath Sounds: No Prolonged Respiration: Expiratory phase Sinus Tenderness: None Grunting Respirations: No Kussmaul Respirations: No Differential Diagnoses: Pulmonary Edema, COPD Exacerbation, Pneumonia, Bronchitis, Lower Resp. Infection Review of Systems - Review Of Systems Constitutional: Reports: Chills, Malaise, Weakness Eyes: Reports: No symptoms Ears, Nose, Mouth, Throat: Reports: No symptoms Respiratory: Reports: Cough, Short of air Cardiac: Reports: No symptoms GI: Reports: No symptoms : Reports: No symptoms Musculoskeletal: Reports: No symptoms Skin: Reports: No symptoms Neurological: Reports: No symptoms Endocrine: Reports: No symptoms Hematologic/Lymphatic: Reports: No symptoms All Other Systems: Reviewed and Negative Past Medical History - Past Medical History Previously Healthy: Yes Endocrine: Reports: DM 2 Cardiovascular: Reports: SC Respiratory: Reports: COPD, Asthma Hematological: Reports: None Gastrointestinal: Reports: None Genitourinary: Reports: None Neuro/Psych: Reports: None Musculoskeletal: Reports: None Cancer: Reports: None Last Menstrual Period: hysterectomy Other Pertinent Past Medical History: , hystrectomy, carpal tunnelDM SC COPD ASTH - Surgical History General Surgical History: Reports: Hysterectomy, , Orthopedic (carpal tunnel) - Family History Family History: Reports: Unknown - Social History Smoking Status: Current every day smoker, Heavy tobacco smoker Hx Substance Use: No Alcohol Screening: None Physical Exam - Physical Exam Appearance: Ill-appearing Ill-appearing: Moderate Pain Distress: Moderate Eyes: VESNA, EOMI, Conjunctiva clear ENT: Ears normal, Nose normal, Oropharynx normal Respiratory: Rhonchi, Wheezes Cardiovascular: RRR, Pulses normal, No rub, No murmur GI/: Soft, Nontender, No masses, Bowel sounds normal, No Organomegaly Musculoskeletal: Normal strength, ROM intact, No edema, No calf tenderness Skin: Warm, Dry, Normal color Neurological: Sensation intact, Motor intact, Reflexes intact, Cranial nerves intact, Alert, Oriented Psychiatric: Affect appropriate, Mood appropriate Interpretation - Radiology Interpretation Radiology Interpretation By: Radiologist - EKG Interpretation Rhythm: Other (afib with RVR, ATRIAL FLUTTER WITH VARIABLE BLOCK) Re-Evaluation - Re-Evaluation Time of Re-Evaluation: 12:00 Status: Improved Pain Level: 0 STILL IN AFIB RVR Appearance: NAD Lungs: Clear Skin: Warm and Dry Neuro: Alert and Oriented X3 CV: RRR - Re-Evaluation Time of Re-Evaluation: 13:00 Status: Improved Vital Signs Stable: Yes Pain Level: 0 Appearance: NAD Skin: Warm and Dry Neuro: Alert and Oriented X3 CV: RRR Physician Notification - Case Discussed Physician Notified: PMD Time of Notification: 14:21 Admit To: Inpatient Critical Care Note - Critical Care Note Total Time (mins): 0 Course - Course Hematology/Chemistry: 05/27/17 11:23 05/27/17 11:23 Orders, Labs, Meds: Lab Review 05/27/17 05/27/17 12 11:12 11:23 11:23 WBC 22.55 H RBC 4.05 L Hgb 12.3 Hct 35.9 L MCV 88.6 MCH 30.4 MCHC 34.3 RDW Coeff of Geraldo 15.0 H Plt Count 277 Immature Gran % (Auto) 0.9 Neut % (Auto) 87.2 Lymph % (Auto) 4.1 L [place] % (Auto) 7.6 Eos % (Auto) 0.0 Baso % (Auto) 0.2 Immature Gran # (Auto) 0.2 Neut # 19.7 H Lymph # 0.9 [place] # 1.7 Eos # 0.0 Baso # 0.0 PT INR APTT Puncture Site R rad O2 Saturation 91.0 L ABG pH 7.43 ABG pCO2 36.0 ABG pO2 60.0 L ABG HCO3 25 ABG Total CO2 26 ABG Base Excess 0 Shukri Test + O2 Delivery Device Nc Oxygen Liter Flow 3.00 FiO2 % 32.0 Sodium 138 Potassium 4.1 Chloride 104 Carbon Dioxide 23 Anion Gap 15.1 BUN 43 H Creatinine 1.68 H Estimated GFR (MDRD) 29.00 BUN/Creatinine Ratio 25.59 Glucose 189 H Lactic Acid Calcium 11.0 H Total Bilirubin 0.6 AST 14 L ALT 9 L Alkaline Phosphatase 128 Total Creatine Kinase 181 CK-MB (CK-2) 4.1 H CK-MB (CK-2) % 2.83237 Troponin I 0.1000 Total Protein 7.5 Albumin 3.3 L Globulin 4.2 Albumin/Globulin Ratio 0.79 Procalcitonin Influenza A (Rapid) Influenza B (Rapid) 05/27/17 05/27/17 05/27/17 11:23 11:23 11:23 WBC RBC Hgb Hct MCV MCH MCHC RDW Coeff of Geraldo Plt Count Immature Gran % (Auto) Neut % (Auto) Lymph % (Auto) [place] % (Auto) Eos % (Auto) Baso % (Auto) Immature Gran # (Auto) Neut # Lymph # [place] # Eos # Baso # PT 10.7 INR 1.05 APTT 27.8 Puncture Site O2 Saturation ABG pH ABG pCO2 ABG pO2 ABG HCO3 ABG Total CO2 ABG Base Excess Shukri Test O2 Delivery Device Oxygen Liter Flow FiO2 % Sodium Potassium Chloride Carbon Dioxide Anion Gap BUN Creatinine Estimated GFR (MDRD) BUN/Creatinine Ratio Glucose Lactic Acid 14.4 Calcium Total Bilirubin AST ALT Alkaline Phosphatase Total Creatine Kinase CK-MB (CK-2) CK-MB (CK-2) % Troponin I Total Protein Albumin Globulin Albumin/Globulin Ratio Procalcitonin 11.10 Influenza A (Rapid) Influenza B (Rapid) 05/27/17 11:23 WBC RBC Hgb Hct MCV MCH MCHC RDW Coeff of Geraldo Plt Count Immature Gran % (Auto) Neut % (Auto) Lymph % (Auto) [place] % (Auto) Eos % (Auto) Baso % (Auto) Immature Gran # (Auto) Neut # Lymph # [place] # Eos # Baso # PT INR APTT Puncture Site O2 Saturation ABG pH ABG pCO2 ABG pO2 ABG HCO3 ABG Total CO2 ABG Base Excess Shukri Test O2 Delivery Device Oxygen Liter Flow FiO2 % Sodium Potassium Chloride Carbon Dioxide Anion Gap BUN Creatinine Estimated GFR (MDRD) BUN/Creatinine Ratio Glucose Lactic Acid Calcium Total Bilirubin AST ALT Alkaline Phosphatase Total Creatine Kinase CK-MB (CK-2) CK-MB (CK-2) % Troponin I Total Protein Albumin Globulin Albumin/Globulin Ratio Procalcitonin Influenza A (Rapid) Negative by naat Influenza B (Rapid) Negative by naat Orders Category Date Time Status ABG DRAW REQUEST Stat CARDIO 05/27/17 11:12 Completed EKG-(ED ONLY) Stat CARDIO 05/27/17 11:11 Completed EKG-(ED ONLY) Stat CARDIO 05/27/17 11:16 Completed EKG-(IP & OP ONLY) DAILY CARDIO 05/28/17 06:00 Ordered EKG-(IP & OP ONLY) DAILY CARDIO 05/29/17 06:00 Ordered EKG-(IP & OP ONLY) DAILY CARDIO 05/30/17 06:00 Ordered NEBULIZER TREATMENT Stat CARDIO 05/27/17 11:15 Completed ACTIVITY .BR with BRP CARE 05/27/17 13:51 Active BLOOD GLUCOSE MONITORING ACCUCHECK Q6H CARE 05/27/17 13:51 Active INTAKE & OUTPUT Q8HR CARE 05/27/17 13:51 Active VITAL SIGNS Q8HR CARE 05/27/17 13:51 Active REGULAR DIET DIETARY 05/27/17 Breakfast Ordered ED IV/MEDIPORT/POWERPORT .ONCE EMERGENCY 05/27/17 11:11 Active ABG Stat LAB 05/27/17 11:12 Completed BLOOD CULTURE (ED ONLY) Stat LAB 05/27/17 11:23 Received CBC W/ AUTO DIFF DAILY@0600 LAB 05/28/17 06:00 Ordered CBC W/ AUTO DIFF DAILY@0600 LAB 05/29/17 06:00 Ordered CBC W/ AUTO DIFF Stat LAB 05/27/17 11:23 Completed COMPREHENSIVE METABOLIC PANEL DAILY@0600 LAB 05/28/17 06:00 Ordered COMPREHENSIVE METABOLIC PANEL DAILY@0600 LAB 05/29/17 06:00 Ordered COMPREHENSIVE METABOLIC PANEL Stat LAB 05/27/17 11:23 Completed CREATINE KINASE Q8H LAB 05/27/17 20:00 Ordered CREATINE KINASE Q8H LAB 05/28/17 04:00 Ordered CREATINE KINASE Stat LAB 05/27/17 11:23 Completed LACTIC ACID Stat LAB 05/27/17 11:23 Completed PARTIAL THROMBOPLASTIN TIME Stat LAB 05/27/17 11:23 Completed PROCALCITONIN Stat LAB 05/27/17 11:23 Completed PT WITH INR Stat LAB 05/27/17 11:23 Completed RAPID FLU A/B Stat LAB 05/27/17 11:23 Completed TROPONIN I Q8H LAB 05/27/17 20:00 Ordered TROPONIN I Q8H LAB 05/28/17 04:00 Ordered TROPONIN I Stat LAB 05/27/17 11:23 Completed URINALYSIS C & S IF INDICATED Stat LAB 05/27/17 11:11 Uncollected 0.9 % Sodium Chloride [Saline Flush] MEDS 05/27/17 11:10 Active 1 syr IVF PRN PRN 0.9 % Sodium Chloride [Sodium Chloride] 100 ml MEDS 05/27/17 11:30 Active Diltiazem HCl Inj [Cardizem Inj] 125 mg IV 5 mg/hr Apixaban [Eliquis] MEDS 05/27/17 21:00 Ordered 2.5 mg PO BID Ceftriaxone Sodium [Rocephin] MEDS 05/27/17 13:25 Discontinued 1 gm .ROUTE .STK-MED ONE Ceftriaxone Sodium [Rocephin] 1 gm MEDS 05/28/17 09:00 Ordered 0.9 % Sodium Chloride [Sodium Chloride] 50 ml IV DAILY Ceftriaxone Sodium [Rocephin] 1 gm MEDS 05/27/17 12:51 Discontinued 0.9 % Sodium Chloride [Sodium Chloride] 50 ml IV ONCE Clopidogrel Bisulfate [Plavix] MEDS 05/28/17 09:00 Ordered 75 mg PO DAILY Diltiazem HCl Inj [Cardizem Inj] MEDS 05/27/17 11:04 Discontinued 20 mg IVP ONCE STA Diltiazem HCl [Cardizem Cd] MEDS 05/28/17 09:00 Ordered 240 mg PO DAILY Furosemide [Lasix Tab] MEDS 05/28/17 13:53 Ordered 40 mg PO MOWEFRSA Insulin Regular, Human [Humulin R] MEDS 05/27/17 13:55 Ordered See Protocol SUBCUT PRN PRN Ipratropium/Albuterol Neb [Duoneb] MEDS 05/27/17 11:15 Discontinued 1 vial NEB ONCE STA Methylprednisolone Sod Succ/Pf [Solu-Medrol 40 mg] MEDS 05/27/17 11:19 Discontinued 40 mg IVP ONCE STA Methylprednisolone Sod Succ/Pf [Solu-Medrol 40 mg] MEDS 05/27/17 21:00 Ordered 40 mg IVP Q12HR Metoprolol Tartrate [Lopressor] MEDS 05/27/17 21:00 Ordered 50 mg PO BID Simvastatin [Zocor] MEDS 05/27/17 21:00 Ordered 10 mg PO BEDTIME Sodium Chloride 0.9% [Sodium Chloride] 1,000 ml MEDS 05/27/17 13:30 Discontinued IV 100 mls/hr Sodium Chloride 0.9% [Sodium Chloride] 1,000 ml MEDS 05/27/17 13:33 Active IV 100 mls/hr Sodium Chloride 0.9% [Sodium Chloride] 1,000 ml MEDS 05/27/17 14:00 Ordered IV 75 mls/hr CT CHEST W/O CONTRAST Stat RADS 05/27/17 13:48 Taken Medications Generic Name Dose Route Start Last Admin Trade Name Freq PRN Reason Stop Dose Admin Clopidogrel Bisulfate 75 mg 05/28/17 09:00 Plavix PO DAILY DANNY Furosemide 40 mg 05/28/17 13:53 Lasix Tab PO MOWEFRSA DANNY Diltiazem HCl 125 mg/ Sodium 125 mls @ 5 mls/hr 05/27/17 11:30 05/27/17 12:17 Chloride IV 10 mg/hr .Q24H DANNY 10 mls/hr Protocol Titration 5 MG/HR Sodium Chloride 1,000 mls @ 100 mls/hr 05/27/17 13:33 05/27/17 13:37 Sodium Chloride IV 05/27/17 23:29 100 mls/hr .Q10H STA Administration Sodium Chloride 1,000 mls @ 75 mls/hr 05/27/17 14:00 Sodium Chloride IV .[id number] DANNY Ceftriaxone Sodium 1 gm/ 50 mls @ 75 mls/hr 05/28/17 09:00 Sodium Chloride IV DAILY [facility] Insulin Human Regular 0 unit 05/27/17 13:55 Humulin R SUBCUT PRN PRN Hyperglycemica Protocol Methylprednisolone Sodium Succinate 40 mg 05/27/17 21:00 Solu-Medrol 40 Mg IVP Q12HR [facility] Metoprolol Tartrate 50 mg 05/27/17 21:00 Lopressor PO BID DANNY Non-Formulary Medication 2.5 mg 05/27/17 21:00 Apixaban [Eliquis] PO BID DANNY Non-Formulary Medication 240 mg 05/28/17 09:00 Diltiazem Hcl [Cardizem Cd] PO DAILY DANNY Simvastatin 10 mg 05/27/17 21:00 Zocor PO BEDTIME DANNY Sodium Chloride 1 syr 05/27/17 11:10 05/27/17 11:27 Saline Flush IVF 1 syr PRN PRN Administration To flush IV Discontinued Medications Generic Name Dose Route Start Last Admin Trade Name Freq PRN Reason Stop Dose Admin Albuterol/Ipratropium 1 vial 05/27/17 11:15 05/27/17 12:30 Duoneb NEB 05/27/17 11:16 1 vial ONCE STA Administration Diltiazem HCl 20 mg 05/27/17 11:04 05/27/17 11:15 Cardizem Inj IVP 05/27/17 11:05 20 mg ONCE STA Administration Ceftriaxone Sodium 1 gm/ 50 mls @ 75 mls/hr 05/27/17 12:51 05/27/17 13:29 Sodium Chloride IV 05/27/17 13:30 75 mls/hr ONCE STA Administration Sodium Chloride 1,000 mls @ 100 mls/hr 05/27/17 13:30 Sodium Chloride IV 05/27/17 23:29 .Q10H STA Methylprednisolone Sodium Succinate 40 mg 05/27/17 11:19 05/27/17 11:25 Solu-Medrol 40 Mg IVP 05/27/17 11:20 40 mg ONCE STA Administration Vital Signs: Temp Pulse Resp BP Pulse Ox 05/27/17 12:17 167 H 26 H 147/100 H 05/27/17 11:29 150 H 30 H 138/65 05/27/17 10:48 97.8 F 153 H 30 H 132/100 H 93 L Departure - Departure Time of Disposition: 14:20 Disposition: ADMITTED INPATIENT Discharge Problem: Atrial flutter, COPD exacerbation Instructions: Atrial Flutter (ED) Condition: Good Pt referred to PMD for follow-up: Yes Additional Instructions: Please call your Family Physician as soon as possible to schedule a follow-up appointment. Allergies/Adverse Reactions: Allergies pneumococcal vaccine Adverse Reaction (Verified 05/27/17 11:01) Swelling Home Medications: Ambulatory Orders Albuterol Sulfate [Ventolin Hfa] 1 inh IH QID 04/02/16 Apixaban [Eliquis] 2.5 mg PO BID 04/02/16 Calcium Carbonate/Vitamin D3 [Calcium 1,000 + D3 Caplet] 1 tab PO DAILY Clopidogrel Bisulfate [Plavix] 75 mg PO DAILY 04/02/16 Ferrous Sulfate, Dried [Iron] 160 mg PO BID BREAKFAST&LUNCH 04/02/16 Simvastatin [Zocor] 10 mg PO BEDTIME 04/02/16 Fluticasone/Salmeterol 500/50 [Advair 500-50 Diskus] 1 puff IH BID 04/03/16 Bisacodyl [Laxative] 10 mg PO BEDTIME PRN 04/04/16 Diltiazem HCl [Cardizem Cd] 240 mg PO DAILY #30 cap.er.24h 06/28/16 Furosemide [Lasix Tab] 40 mg PO MOWEFRSA #120 tablet 06/28/16 Sitagliptin Phosphate [Januvia] 25 mg PO BEDTIME #30 tablet 06/28/16 Metoprolol Tartrate [Lopressor] 50 mg PO BID #60 tablet 09/19/16 Allopurinol 200 mg PO DAILY 12/24/16 Cefdinir [Omnicef] 300 mg PO Q12HR #14 capsule 12/28/16 Prednisone 10 mg PO BIDWM #10 tablet 12/28/16
--- NOTE | 2017-05-27 14:25 | CT ---
EXAM: CT scan of the chest without contrast HISTORY: Shortness of breath TECHNIQUE: Imaging of the chest was performed without contrast. 5 mm thin axial images and coronal and sagittal images were provided for interpretation. Comparison 11/27/2016 CT scan of the chest. FINDINGS: There is infiltrate seen within the left lower lobe of the lung. The previously noted nodu les seen within the lungs are not well seen due to motion. The previously noted large nodule seen in the left lower lobe is not well seen due to superimposed airspace disease. There is no pleural effus ion. No lytic or blastic lesions are seen within the osseous structures. The heart is normal size. No mediastinal masses are seen. There is atherosclerotic calcification of the thoracic aorta. IMPRESSION: Interval development of left lower lobe pneumonia. The previously noted nodules seen within the lungs are not well seen on this examination due to motio n and due to air space disease in the left lower lobe. Continued follow-up evaluation of the nodules and [address] of the chest without contrast should be performed.
[2017-05-27 15:14] VITALS: BMI 27.3
[2017-05-27] MEDS: HUMULIN R SUBCUT PRN ×2 (17:16→21:15)
[2017-05-27] MEDS ORDERED: LASIX IVP STA ×2 (17:44→22:10)
[2017-05-27] MEDS ORDERED: DUONEB NEB SCH (18:00)
[2017-05-27] MEDS: MORPHINE 2 MG/ML SYRINGE IVP PRN (18:05)
[2017-05-27] MEDS ORDERED: LANOXIN IVP STA (19:19)
[2017-05-27] MEDS ORDERED: CARDIZEM INJ ONE (19:29)
[2017-05-27] MEDS: XOPENEX 1.25 MG NEB SCH (19:30)
[2017-05-27] MEDS: ELIQUIS PO SCH (20:23)
[2017-05-27] MEDS: SOLU-MEDROL 40 MG IVP SCH (20:23)
[2017-05-27] MEDS: JANUVIA PO SCH (20:24)
[2017-05-27] MEDS: LOPRESSOR PO SCH (20:24)
[2017-05-27] MEDS: ZOCOR PO SCH (20:24)
[2017-05-27] MEDS ORDERED: NON-FORMULARY MEDICATION (Sitagliptin Phosphate [Januvia] 25 MG) PO SCH (21:00)
[2017-05-27] MEDS ORDERED: NON-FORMULARY MEDICATION (Apixaban [Eliquis] 2.5 MG) PO SCH (21:00)
[2017-05-27] MEDS ORDERED: SOLU-MEDROL 40 MG ONE (22:12)
[2017-05-27] MEDS ORDERED: LASIX ONE (22:12)
[2017-05-28] MEDS: XOPENEX 1.25 MG NEB SCH ×3 (03:05→23:11)
[2017-05-28] MEDS: LASIX TAB PO SCH (05:41)
[2017-05-28] MEDS: HUMULIN R SUBCUT PRN ×2 (05:41→17:44)
[2017-05-28] MEDS: SODIUM CHLORIDE 1,000 ML IV SCH (06:04)
[2017-05-28] MEDS ORDERED: DILTIAZEM HCL 240 MG PO SCH (09:00)
[2017-05-28] MEDS: ROCEPHIN 1 GM in SODIUM CHLORIDE 50 ML IV SCH (09:12)
[2017-05-28] MEDS: LOPRESSOR PO SCH ×2 (09:13→21:57)
[2017-05-28] MEDS: ELIQUIS PO SCH ×2 (09:13→21:57)
[2017-05-28] MEDS: PLAVIX PO SCH (09:13)
[2017-05-28] MEDS: SOLU-MEDROL 40 MG IVP SCH ×2 (09:14→21:58)
[2017-05-28] MEDS: CARDIZEM CD PO SCH (09:14)
[2017-05-28] MEDS: ZOCOR PO SCH (21:57)
[2017-05-28] MEDS: JANUVIA PO SCH (21:57)
[2017-05-29] MEDS: XOPENEX 1.25 MG NEB SCH ×3 (05:38→22:26)
[2017-05-29] MEDS: HUMULIN R SUBCUT PRN ×4 (06:37→21:27)
[2017-05-29] MEDS: CARDIZEM CD PO SCH (10:22)
[2017-05-29] MEDS: ELIQUIS PO SCH ×2 (10:23→20:31)
[2017-05-29] MEDS: LOPRESSOR PO SCH ×2 (10:30→20:32)
[2017-05-29] MEDS: PLAVIX PO SCH (10:31)
[2017-05-29] MEDS: SOLU-MEDROL 40 MG IVP SCH ×2 (18:55→20:32)
[2017-05-29] MEDS: ROCEPHIN 1 GM in SODIUM CHLORIDE 50 ML IV SCH (18:56)
[2017-05-29] MEDS: ZOCOR PO SCH (20:32)
[2017-05-29] MEDS: JANUVIA PO SCH (20:32)
[2017-05-30] MEDS: XOPENEX 1.25 MG NEB SCH ×3 (04:45→23:08)
[2017-05-30] MEDS: LASIX TAB PO SCH (05:57)
[2017-05-30] MEDS: HUMULIN R SUBCUT PRN ×3 (06:43→18:53)
[2017-05-30] MEDS: ROCEPHIN 1 GM in SODIUM CHLORIDE 50 ML IV SCH (08:52)
[2017-05-30] MEDS: LOPRESSOR PO SCH ×2 (08:53→21:54)
[2017-05-30] MEDS: ELIQUIS PO SCH ×2 (08:53→21:55)
[2017-05-30] MEDS: PLAVIX PO SCH (08:53)
[2017-05-30] MEDS: CARDIZEM CD PO SCH (08:59)
--- NOTE | 2017-05-30 11:22 | PN ---
DATE OF SERVICE: 05/28/17 SUBJECTIVE: The patient was admitted with rapid atrial fibrillation and pneumonia, respiratory failure and hypoxemia. nurse Negra, been wean off the patient from the Cardizem dip. The heart rate is now 86 to 80. REVIEW OF SYSTEMS: CONSTITUTIONAL: No fever, no chills. HEENT: Normal. ENDOCRINE: No weight gain, no weight loss. CVS: No angina symptoms. No CHF symptoms. No palpitations. No atypical chest pain for CAD. No shortness of breath. No PND, no orthopnea. RESPIRATORY: Cough and congestion with a lot of phlegm, no hemoptysis. GI: No nausea, no vomiting. No abdominal pain. : No hematuria. No polyuria. MUSCULOSKELETAL:. No joint swelling. PSYCHIATRIC: Not anxious. No depression. No suicidal thoughts. No homicidal thoughts. SKIN: Intact. No rash. PHYSICAL EXAMINATION: V/S: Blood pressure 143/84, respiratory rate 18, heart rate 80, temperature 97 with [id number]. HEENT: Normocephalic, atraumatic. Mucosa dry. Pallor positive. No icterus. NECK: Supple. No JVD, no carotid bruit. No lymphadenopathy. LUNGS: Basilar crackles. Clear to auscultation. No rales or rhonchi. HEART: S1, S2 normal. No S3. No murmur, gallop or regurgitation. ABDOMEN: Soft, nontender. Bowel sounds active. No rigidity. No rebound or guarding. No CVA tenderness. EXTREMITIES: No clubbing, cyanosis or pedal edema. MUSCULOSKELETAL: No joint swelling. NEUROLOGIC: Awake, alert, oriented times three. No focal deficit. LYMPHATIC: No lymph nodes palpable. SKIN: Intact. LABS: WBC 15.95, hgb 12.0, hct 36.7, plt count 302, sodium 141, potassium 4.2, chloride 103, bicarb 25, BUN 52, creatinine 1.62 and glucose 164. ASSESSMENT: 1. Acute hypoxemic respiratory failure 2. COPD exacerbation secondary to the pneumonia 3. Acute on chronic renal failure 4. Atrial fibrillation status post ventricular rate 5. Continued nicotine use 6. Coronary artery disease 7. Congestive heart failure 8. Dyslipidemia 9. 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 Continue the Rocephin 2. Continue Cardizem 240 3. Lasix 40mg PO on Sunday, Sunday and Sunday 4. Duo NEBS 5. Xopenex 6. Solu-Medrol 40mg Q 12 hours 7. Daily I&O's TIME SPENT: More than 35 minutes MTDD
--- NOTE | 2017-05-30 15:55 | HP ---
DATE OF SERVICE: 05/27/17 CHIEF COMPLAINT: Shortness of breath, cough and congestion. HISTORY OF PRESENT ILLNESS: This is a 81 year old female with history of COPD, oxygen dependant came to the emergency room with cough, congestion, fast heart rate and getting yellow/green phlegm. It has been going on for almost two weeks, wheezing and breathing treatments are not helping. The patient was seen by Dr. Padilla in the emergency room. BUN was 43, creatinine 1.68. First set of cardiac enzymes were negative. WBC 22,000. CT chest showed the left lower lobe pneumonia and the patient was found to be in atrial fibrillation with rapid ventricular rate. Been started on the Cardizem dip and being admitted to SCU for the IV fluids, breathing treatment and uncontrolled atrial fibrillation. REVIEW OF SYSTEMS: CONSTITUTIONAL: Fever, Chills. Weakness. Tiredness. HEENT: Normal. ENDOCRINE: No weight gain; no weight loss. CVS: No chest pain. No PND, no orthopnea. Shortness of breath. No PND, no orthopnea. Palpitation. Rapid heart rate, Irregular heart rate. RESPIRATORY: Cough, Congestion. No hemoptysis. GI: No nausea, no vomiting. No abdominal pain. No melena. : No hematuria. No polyuria. MUSCULOSKELETAL: No joint swelling. PSYCHIATRIC: Not anxious. No depression. No suicidal thoughts. No homicidal thoughts. SKIN: Intact, no open lesions. PAST MEDICAL HISTORY: Coronary artery disease, 1958 Congestive heart failure, 2016 Atrial fibrillation CAD status post stent Peripheral edema COPD, oxygen dependant Hiatal hernia GERD Chronic kidney disease Diabetes Depression Anxiety PAST SURGICAL HISTORY: Complete hysterectomy Cataract surgery PERSONAL HISTORY: The patient does smoke, no alcohol and no drugs. Family history is significant for the cancer. MEDICATIONS: Zocor Iron Calcium Eliquis Ventolin Plavix Advil Laxative Cardizem Lasix Januvia Lopressor Allopurinol Omnicef Prednisone ALLERGIES: Pneumococcal vaccine PHYSICAL EXAMINATION: V/S: Blood pressure 132/100, respiratory rate 30, heart rate 153 regular, temperature 97.8 with saturation 93 on 2 liters. HEENT: Atraumatic, normocephalic. No scleral icterus. NECK: Supple. No JVD, no bruit. No lymphadenopathy. No thyromegaly. HEART: S1, S2 normal. No murmur. No cyanosis or clubbing. No ascites. LUNGS: Clear to auscultation. No rales or rhonchi. ABDOMEN: Soft, nontender. Bowel sounds are active. No CVA tenderness. No rigidity or guarding. EXTREMITIES: No cyanosis, clubbing or pedal edema. MUSCULOSKELETAL: Normal joints, no swelling. NEUROLOGIC: The patient is SKIN: Intact; no open lesions. LYMPHATIC: No lymph nodes palpable. LABS: WBC 22.55, hgb 12.3, hct 35.9, plt count 277, d-dimer 3070. ABG showed the pH 7.43, pCO2 36, pO2 60. Sodium 138, potassium 4.1, chloride 104, bicarb 23, BUN 43, creatinine 1.68 and glucose 189, Lactic acid is 14, BNP 1,027. Flu Negative. ASSESSMENT: 1. COPD exacerbation secondary to left lower lobe pneumonia 2. Atrial fibrillation 3. Elevated D-Dimer 4. Hypertension 5. Dyslipidemia 6. Diabetes 7. CAD 8. CHF 9. Acute on chronic heart failure PLAN: 1. Admit patient to the SCU 2. Cardizem drip at 12 mg 3. Continue Eliquis 2.5mg twice a day 4. Rocephin 1 gram daily 5. Digoxin 250mcg IV push stat 6. Diltazem 7. Lasix 20mg IV push 8. DUO NEBS 9. Solu-Medrol 40mg Q 8 hours 10.Metoprolol 50mg twice a day 11.IV fluids at 100ml by ER physician but will change it to the 40ml per hour TIME SPENT: MORE THAN 70 minutes which is critical care time. MTDD
[2017-05-30] MEDS: SOLU-MEDROL 40 MG IVP SCH ×2 (21:54→22:47)
[2017-05-31] MEDS: HUMULIN R SUBCUT PRN ×5 (00:09→22:24)
[2017-05-31] MEDS: XOPENEX 1.25 MG NEB SCH ×3 (04:36→20:12)
[2017-05-31] MEDS: SODIUM CHLORIDE 1,000 ML IV SCH ×5 (07:27→10:51)
[2017-05-31] MEDS: CARDIZEM CD PO SCH (09:43)
[2017-05-31] MEDS: ELIQUIS PO SCH ×2 (09:43→21:46)
[2017-05-31] MEDS: PLAVIX PO SCH (09:43)
[2017-05-31] MEDS: LOPRESSOR PO SCH ×2 (09:43→21:46)
[2017-05-31] MEDS: SOLU-MEDROL 40 MG IVP SCH (09:44)
[2017-05-31] MEDS: ROCEPHIN 1 GM in SODIUM CHLORIDE 50 ML IV SCH (09:44)
--- NOTE | 2017-05-31 10:17 | PN ---
DATE OF SERVICE: 05/29/17 SUBJECTIVE: The patient was admitted with acute hypoxemic respiratory failure, pneumonia, rapid atrial fibrillation and acute renal failure and dehydration. The patient been getting breathing treatments and medication. Finally atrial fibrillation is under control with the patient being off of the Cardizem drip. The patient did pull out the IV line. The patient doesn't have IV site at this time. BUN and creatinine is worse today 74 and 1.75. REVIEW OF SYSTEMS: CONSTITUTIONAL: No fever, no chills. HEENT: Normal. ENDOCRINE: No weight gain, no weight loss. CVS: No angina symptoms. No CHF symptoms. No palpitations. No atypical chest pain for CAD. No shortness of breath. No PND, no orthopnea. RESPIRATORY: No cough, no hemoptysis. GI: No nausea, no vomiting. No abdominal pain. : No hematuria. No polyuria. MUSCULOSKELETAL:. No joint swelling. PSYCHIATRIC: Not anxious. No depression. No suicidal thoughts. No homicidal thoughts. SKIN: Intact. No rash. PHYSICAL EXAMINATION: V/S: Blood pressure 141/85, respiratory rate 20, heart rate 77, temperature 97.6 with saturation 94 on 3 liters. HEENT: Normocephalic, atraumatic. Mucosa dry. Pallor positive. No icterus. NECK: Supple. No JVD, no carotid bruit. No lymphadenopathy. LUNGS: Bilateral entry is decreased and basilar crackles. No rales or rhonchi. HEART: S1, S2 normal. No S3. No murmur, gallop or regurgitation. ABDOMEN: Soft, nontender. Bowel sounds active. No rigidity. No rebound or guarding. No CVA tenderness. EXTREMITIES: No clubbing, cyanosis or pedal edema. MUSCULOSKELETAL: No joint swelling. NEUROLOGIC: Awake, alert, oriented times three. No focal deficit. LYMPHATIC: No lymph nodes palpable. SKIN: Intact. LABS: Sodium 142, potassium 4.1, chloride 105, bicarb 24, BUN 74, creatinine 1.75, WBC 12.31, hgb 12.3, hct 36.8, plt count 353 ASSESSMENT: 1. Status post rapid atrial fibrillation 2. Community acquired pneumonia 3. COPD exacerbation secondary to the pneumonia 4. Hypoxemia 5. Acute on chronic renal failure 6. CAD 7. CHF 8. Dyslipidemia 9. Nicotine use PLAN: 1. Will get IV line 2. Continue Rocephin 3. Plavix 4. Apixaban 5. DUO NEBS 6. Solu-Medrol 7. Daily I&O's TIME SPENT: More than 35 minutes MTDD
--- NOTE | 2017-05-31 11:41 | PN ---
DATE OF SERVICE: 05/30/17 SUBJECTIVE: The patient was admitted with rapid atrial fibrillation, respiratory distress and pneumonia. The patient is off of the Cardizem drip. BUN and creatinine been elevated 84/1.74. The patient is pulling off her IV site. REVIEW OF SYSTEMS: CONSTITUTIONAL: No fever, no chills. HEENT: Normal. ENDOCRINE: No weight gain, no weight loss. CVS: No angina symptoms. No CHF symptoms. No palpitations. No atypical chest pain for CAD. No shortness of breath. No PND, no orthopnea. RESPIRATORY: No cough, no hemoptysis. GI: No nausea, no vomiting. No abdominal pain. : No hematuria. No polyuria. MUSCULOSKELETAL:. No joint swelling. PSYCHIATRIC: Not anxious. No depression. No suicidal thoughts. No homicidal thoughts. SKIN: Intact. No rash. PHYSICAL EXAMINATION: V/S: blood pressure 156/88, respiratory rate 26, heart rate 632, temperature 97.6 with saturation 94%. HEENT: Normocephalic, atraumatic. Mucosa dry. NECK: Supple. No JVD, no carotid bruit. No lymphadenopathy. LUNGS: Bilateral entry is decreased with basilar crackles. No rales or rhonchi. HEART: S1, S2 normal. No S3. No murmur, gallop or regurgitation. ABDOMEN: Soft, nontender. Bowel sounds active. No rigidity. No rebound or guarding. No CVA tenderness. EXTREMITIES: No clubbing, cyanosis or pedal edema. MUSCULOSKELETAL: No joint swelling. NEUROLOGIC: Awake, alert, oriented times three. No focal deficit. LYMPHATIC: No lymph nodes palpable. SKIN: Intact. Dry LABS: Sodium 141, potassium 4.1, chloride 103, bicarb 27, BUN 84, creatinine 1.74, WBC 11.49, hgb 13.3, hct 40.2, plt count 423. ASSESSMENT: 1. Status post rapid atrial fibrillation 2. Respiratory failure secondary to the pneumonia 3. Acute on chronic renal failure 4. CAD 5. Congestive heart failure PLAN: 1. Restart the IV fluids 60ml per hour 2. Decrease the Januvia to 25. 3. Rocephin 4. Diltazem (Cardizem CD) 240mg PO daily 5. Eliquis TIME SPENT: More than 35 minutes MTDD
--- NOTE | 2017-05-31 14:01 | CT ---
Exam: CT of the abdomen pelvis without intravenous contrast. Comparison: By Reason for exam: Pain. FINDINGS: Similar appearing nodule in the left lower lobe on axial image number 10 measuring approxi mately 1.5 cm. No pleural effusion in the partially imaged lung bases. Image interpretation is limited by the lack of intravenous contrast administration and motion artifac t. The liver, spleen, adrenal glands, and gallbladder appear grossly unremarkable within limitations of a noncontrasted study with motion artifact. Similar appearing inflammatory changes are seen in the perinephric fat surrounding both kidneys. There are multiple renal hypodensities not significantly changed from the previous exam. There is sim ilar and renal collecting system calcifications without obvious hydronephrosis. The ureters are not completely evaluated on the examination. 1.2 cm nodular density on axial image 23 is presumably a splenule. No obvious small bowel dilatation or transition point. The bladder is dilated without bladder wall abnormality. Diverticular disease is seen in the rectosigmoid without surrounding inflammatory change. No intra-abdominal free air. Degenerative disease is seen in the lumbosacral spine with vacuum disc phenomenon at L4-5 and L5-S1. Similar appearing compression deformities are seen in the L1 vertebral body. Atherosclerotic disease is seen within the aorta and distal arterial vasculature. The imaged osseous structures are diffusely demineralized. No suspicious appearing osteoblastic or osteolytic lesion. Impression: 1. Similar appearing left lower lobe pulmonary nodule measuring up to 1.5 cm. Recommend correlation w ith PET or biopsy for further characterization . 2. Evaluation of the abdomen pelvis is limited due to the lack of intravenous contrast and respirato ry motion abnormalities. No obvious inflammatory changes are seen within the abdomen or pelvis. 3. Diverticulosis. 4. Renal hypodensities are statistically cysts. Ultrasound may be utilized for further characteriza tion. 5. Nodular density in the left upper quadrant is presumably a splenule. 6. Degenerative disease.
[2017-06-01] MEDS: SOLU-MEDROL 40 MG IVP SCH ×3 (03:08→22:23)
[2017-06-01] MEDS: XOPENEX 1.25 MG NEB SCH ×3 (04:56→22:55)
[2017-06-01] MEDS: ELIQUIS PO SCH ×2 (09:07→22:31)
[2017-06-01] MEDS: CARDIZEM CD PO SCH (09:07)
[2017-06-01] MEDS: LOPRESSOR PO SCH ×2 (09:08→22:31)
[2017-06-01] MEDS: PLAVIX PO SCH (09:08)
[2017-06-01] MEDS ORDERED: ROCEPHIN IM STA (09:09)
[2017-06-01] MEDS ORDERED: LIDOCAINE HCL 1% SDV SUBCUT STA (09:09)
[2017-06-01] MEDS: SODIUM CHLORIDE 1,000 ML IV SCH (09:09)
[2017-06-01] MEDS: ROCEPHIN 1 GM in SODIUM CHLORIDE 50 ML IV SCH (09:42)
[2017-06-01] MEDS: HUMULIN R SUBCUT PRN (11:49)
[2017-06-01] MEDS ORDERED: ATIVAN PO STA (12:51)
--- NOTE | 2017-06-01 14:37 | PN ---
DATE OF SERVICE: 05/31/17 SUBJECTIVE: The patient was admitted with the rapid atrial fibrillation with hypoxemic respiratory failure, pneumonia. BUN and creatinine is high. Today BUN 81 and creatinine 1.58. Getting IV fluids, cough and congested with no fever or chills. Gets some confusion with history of dementia. REVIEW OF SYSTEMS: CONSTITUTIONAL: No fever, no chills. HEENT: Normal. ENDOCRINE: No weight gain, no weight loss. CVS: No angina symptoms. No CHF symptoms. No palpitations. No atypical chest pain for CAD. No shortness of breath. No PND, no orthopnea. RESPIRATORY: No cough, no hemoptysis. GI: No nausea, no vomiting. No abdominal pain. : No hematuria. No polyuria. MUSCULOSKELETAL:. No joint swelling. PSYCHIATRIC: Not anxious. No depression. No suicidal thoughts. No homicidal thoughts. SKIN: Intact. No rash. PHYSICAL EXAMINATION: V/S: Blood pressure 130/60, respiratory rate 20, heart rate 88, temperature 97.2 and saturation is 98 on 3 liters. HEENT: Normocephalic, atraumatic. Mucosa dry. Pallor positive. No icterus. NECK: Supple. No JVD, no carotid bruit. No lymphadenopathy. LUNGS: Decreased and basilar crackles. Clear to auscultation. No rales or rhonchi. HEART: S1, S2 normal. No S3. No murmur, gallop or regurgitation. ABDOMEN: Soft, nontender. Bowel sounds active. No rigidity. No rebound or guarding. No CVA tenderness. EXTREMITIES: No clubbing, cyanosis. 1+ edema. MUSCULOSKELETAL: No joint swelling. NEUROLOGIC: Awake, alert, with confusion episodes. No focal deficit. LYMPHATIC: No lymph nodes palpable. SKIN: Intact. LABS: Sodium 143, potassium 4.1, chloride 107, bicarb 27, BUN 18, creatinine 1.58, WBC 13.56, hgb 12.3, hct 37.4, plt count 353. ASSESSMENT: 1. Status post rapid atrial fibrillation 2. Acute on chronic renal failure 3. COPD exacerbation secondary to the pneumonia 4. Hypoxemia 5. CAD 6. CHF PLAN: 1. Continue the IV fluids 2. Rocephin 3. Plavix 4. DUO NEBS 5. Xopenex 6. Morphine PRN 7. Solu-Medrol 40mg Q 8 hours 8[address] Will get CT of the abdomen and pelvis today. TIME SPENT: More than 35 minutes MTDD
[2017-06-01] MEDS ORDERED: ATIVAN ONE (15:55)
[2017-06-02] MEDS: XOPENEX 1.25 MG NEB SCH ×3 (04:40→20:38)
[2017-06-02] MEDS: HUMULIN R SUBCUT PRN ×2 (06:05→13:13)
[2017-06-02] MEDS: ATIVAN PO SCH (08:53)
[2017-06-02] MEDS: LOPRESSOR PO SCH ×2 (08:54→21:38)
[2017-06-02] MEDS: CARDIZEM CD PO SCH (08:54)
[2017-06-02] MEDS: ZYPREXA PO SCH (08:55)
[2017-06-02] MEDS: PLAVIX PO SCH (08:55)
[2017-06-02] MEDS: SEROQUEL PO SCH (08:55)
[2017-06-02] MEDS: ELIQUIS PO SCH ×2 (08:56→21:39)
[2017-06-02] MEDS: ROCEPHIN 1 GM in SODIUM CHLORIDE 50 ML IV SCH (17:51)
[2017-06-02] MEDS: SOLU-MEDROL 40 MG IVP SCH ×2 (17:51→21:46)
[2017-06-02] MEDS: CARDIZEM INJ 125 MG in SODIUM CHLORIDE 100 ML IV SCH ×2 (21:35→21:36)
[2017-06-02] MEDS: SODIUM CHLORIDE 1,000 ML IV SCH ×2 (21:48→23:46)
[2017-06-03] MEDS: XOPENEX 1.25 MG NEB SCH ×3 (04:00→20:55)
[2017-06-03] MEDS: ATIVAN PO SCH ×3 (08:17→20:02)
--- NOTE | 2017-06-03 08:40 | ED.PDOC ---
Procedures - IV/Art Line Insertion Location: Rt wrist Type of Line: Peripheral IV Invasive Line/IV Catheter Gauge: 22 Number of Attempts: 1 Blood Return Positive: Yes Invasive Line/IV Flushes Without Difficulty: Yes Conscious Sedation - Pre-op Assessment Weight: 164 lb Surgical History: , hystrectomy, carpal tunnel - Medical History Past Medical History: Diabetes, [place], COPD, Asthma - Physical Exam Heart Rate/Rhythm: Tachycardia, Irregular Rhythm
[2017-06-03] MEDS: CARDIZEM CD PO SCH (09:10)
[2017-06-03] MEDS: ELIQUIS PO SCH ×2 (09:11→20:02)
[2017-06-03] MEDS: ROCEPHIN 1 GM in SODIUM CHLORIDE 50 ML IV SCH (09:12)
[2017-06-03] MEDS: PLAVIX PO SCH (09:12)
[2017-06-03] MEDS: LOPRESSOR PO SCH ×2 (09:12→20:02)
[2017-06-03] MEDS: SEROQUEL PO SCH (09:13)
[2017-06-03] MEDS: ZYPREXA PO SCH (09:13)
[2017-06-03] MEDS: SOLU-MEDROL 40 MG IVP SCH ×2 (09:14→23:37)
[2017-06-03] MEDS: HUMULIN R SUBCUT PRN ×3 (13:36→20:04)
[2017-06-04] MEDS: XOPENEX 1.25 MG NEB SCH ×3 (03:50→20:30)
[2017-06-04] MEDS: SOLU-MEDROL 40 MG IVP SCH ×2 (09:00→22:33)
[2017-06-04] MEDS: SEROQUEL PO SCH (09:42)
[2017-06-04] MEDS: ATIVAN PO SCH (09:42)
[2017-06-04] MEDS: CARDIZEM CD PO SCH (09:42)
[2017-06-04] MEDS: PLAVIX PO SCH (09:42)
[2017-06-04] MEDS: ZYPREXA PO SCH (09:42)
[2017-06-04] MEDS: LOPRESSOR PO SCH ×2 (09:42→22:36)
[2017-06-04] MEDS: ELIQUIS PO SCH ×2 (09:43→22:36)
[2017-06-04] MEDS: HUMULIN R SUBCUT PRN ×2 (12:13→22:57)
[2017-06-04] MEDS ORDERED: ROCEPHIN IM STA (13:28)
[2017-06-04] MEDS ORDERED: LIDOCAINE HCL 1% SDV SUBCUT STA (13:28)
[2017-06-04] MEDS ORDERED: SOLU-MEDROL 40 MG IM STA ×2 (13:31→22:33)
[2017-06-04] MEDS: ROCEPHIN 1 GM in SODIUM CHLORIDE 50 ML IV SCH (13:32)
[2017-06-04] MEDS: SODIUM CHLORIDE 1,000 ML IV SCH ×2 (13:33→16:04)
[2017-06-04] MEDS ORDERED: ATIVAN ONE (14:52)
[2017-06-04] MEDS: ATIVAN IM PRN (15:00)
[2017-06-04] MEDS ORDERED: HALDOL IM SCH (21:00)
[2017-06-04] MEDS ORDERED: HALDOL ONE (22:28)
[2017-06-05] MEDS: XOPENEX 1.25 MG NEB SCH ×3 (03:56→20:19)
[2017-06-05] MEDS: HUMULIN R SUBCUT PRN ×3 (05:25→17:11)
[2017-06-05] MEDS: LOPRESSOR PO SCH ×2 (08:33→21:00)
[2017-06-05] MEDS: CARDIZEM CD PO SCH (08:36)
[2017-06-05] MEDS: HALDOL IM SCH ×2 (08:37→21:00)
[2017-06-05] MEDS: PLAVIX PO SCH (08:38)
[2017-06-05] MEDS: ZYPREXA PO SCH (08:38)
[2017-06-05] MEDS: ELIQUIS PO SCH ×2 (08:39→21:00)
[2017-06-05] MEDS ORDERED: SOLU-MEDROL 40 MG IM STA (08:51)
[2017-06-05] MEDS: SOLU-MEDROL 40 MG IVP SCH ×2 (08:54→21:00)
[2017-06-05] MEDS ORDERED: SEROQUEL PO SCH (09:00)
[2017-06-05] MEDS ORDERED: ROCEPHIN IM STA (10:29)
[2017-06-05] MEDS ORDERED: LIDOCAINE HCL 1% SDV SUBCUT STA (10:29)
[2017-06-05] MEDS: ROCEPHIN 1 GM in SODIUM CHLORIDE 50 ML IV SCH (10:30)
[2017-06-05] MEDS ORDERED: LANOXIN IM STA (10:35)
[2017-06-05] MEDS ORDERED: LASIX IM STA (10:39)
[2017-06-05] MEDS: MORPHINE 2 MG/ML SYRINGE IVP PRN (14:09)
--- NOTE | 2017-06-05 15:13 | DI ---
EXAM: Single view of the chest HISTORY: Wheezing and shortness of breath. COMPARISON: CT chest 05/27/2017 FINDINGS: Cardiomediastinal silhouette is enlarged. There is no pneumothorax. There is no acute con solidation. There is minimal lower lobe ground-glass versus airway thickening. There is no acute co nsolidation. Osseous structures are unremarkable. IMPRESSION: 1. No acute cardiopulmonary process or consolidation. 2. Mild lower lobe airway thickening may represent bronchiolitis versus chronic small airways carlos arguelles
[2017-06-05] MEDS ORDERED: MORPHINE 2 MG/ML SYRINGE IVP STA (17:45)
[2017-06-05] MEDS: ATIVAN IM PRN (18:16)
[2017-06-05] MEDS: SODIUM CHLORIDE 1,000 ML IV SCH (20:51)
[2017-06-06] MEDS: MORPHINE 2 MG/ML SYRINGE IVP PRN ×3 (01:14→21:58)
[2017-06-06] MEDS: XOPENEX 1.25 MG NEB SCH ×3 (04:21→20:40)
[2017-06-06] MEDS: ATIVAN IM PRN ×2 (05:39→12:32)
[2017-06-06] MEDS: SODIUM CHLORIDE 1,000 ML IV SCH ×2 (08:36→11:27)
[2017-06-06] MEDS: ROCEPHIN 1 GM in SODIUM CHLORIDE 50 ML IV SCH (08:37)
[2017-06-06] MEDS: HALDOL IM SCH ×2 (08:37→21:15)
[2017-06-06] MEDS ORDERED: LASIX IVP STA (08:50)
[2017-06-06] MEDS: CARDIZEM CD PO SCH (09:33)
[2017-06-06] MEDS ORDERED: BUMEX IVP STA (09:35)
[2017-06-06] MEDS: LOPRESSOR PO SCH ×2 (09:40→21:17)
[2017-06-06] MEDS: ELIQUIS PO SCH ×2 (09:40→21:17)
[2017-06-06] MEDS: PREDNISONE PO SCH ×2 (09:41→17:30)
[2017-06-06] MEDS: PLAVIX PO SCH (09:41)
[2017-06-06] MEDS ORDERED: MORPHINE 2 MG/ML SYRINGE IVP STA (12:42)
--- NOTE | 2017-06-06 15:49 | PN ---
DATE OF SERVICE: 06/06/16 SUBJECTIVE: The patient is been calm and quiet will the Haldol injection. IV fluids been just started. Seems to be in some respiratory distress breathing around 26-30, saturation is around 88. REVIEW OF SYSTEMS: CONSTITUTIONAL: No fever, no chills. HEENT: Normal. ENDOCRINE: No weight gain, no weight loss. CVS: No angina symptoms. No CHF symptoms. No palpitations. No atypical chest pain for CAD. No shortness of breath. No PND, no orthopnea. RESPIRATORY: No cough, no hemoptysis. GI: No nausea, no vomiting. No abdominal pain. : No hematuria. No polyuria. MUSCULOSKELETAL: No joint swelling. PSYCHIATRIC: Not anxious. No depression. No suicidal thoughts. No homicidal thoughts. SKIN: Intact. No rash. PHYSICAL EXAMINATION: V/S: Blood pressure 134/54, respiratory rate 24-30, heart rate 111 atrial fibrillation with saturation 92 on 3 liters and temperature 97.4. HEENT: Normocephalic, atraumatic. Mucosa dry. NECK: Supple. No JVD, no carotid bruit. No lymphadenopathy. LUNGS: Decreased and basilar crackles are present. Clear to auscultation. No rales or rhonchi. HEART: S1, S2 normal. No S3. No murmur, gallop or regurgitation. ABDOMEN: Soft, nontender. Bowel sounds active. No rigidity. No rebound or guarding. No CVA tenderness. EXTREMITIES: No clubbing, cyanosis. 1+edema. The upper extremity has multiple bruises are present. MUSCULOSKELETAL: No joint swelling. NEUROLOGIC: the patient is sleeping, response to the verbal stimuli and goes back to sleep by mumbling. No focal deficit. LYMPHATIC: No lymph nodes palpable. SKIN: Intact. ASSESSMENT: 1. Mild respiratory distress will get ABG 2. Acute on chronic renal failure 3. Atrial fibrillation 4. CAD 5. CHF 6. Pneumonia 7. Alzheimer's Dementia with behavioral changes PLAN: 1. Bumex 1mg IV push 2. Stop the Zyprexa 3. Start the IV fluids at 60ml per hour 4. I&O's 5. ABG 6. Chest x-ray 7. CMP Will follow the patient in daily rounds. TIME SPENT: More than 35 minutes MTDD
[2017-06-06] MEDS: HUMULIN R SUBCUT PRN (22:54)
[2017-06-07] MEDS: ATIVAN IM PRN (00:12)
[2017-06-07] MEDS: SODIUM CHLORIDE 1,000 ML IV SCH ×2 (00:27→07:54)
[2017-06-07] MEDS: XOPENEX 1.25 MG NEB SCH ×3 (04:36→23:17)
[2017-06-07] MEDS: MORPHINE 2 MG/ML SYRINGE IVP PRN ×2 (05:14→18:01)
[2017-06-07] MEDS ORDERED: SOLU-MEDROL 125 MG IVP STA (09:02)
[2017-06-07] MEDS: HALDOL IM SCH ×2 (10:00→21:06)
[2017-06-07] MEDS: ROCEPHIN 1 GM in SODIUM CHLORIDE 50 ML IV SCH (10:00)
[2017-06-07] MEDS: CARDIZEM CD PO SCH (10:04)
[2017-06-07] MEDS: ELIQUIS PO SCH ×2 (10:04→21:08)
[2017-06-07] MEDS: PREDNISONE PO SCH ×2 (10:05→16:39)
[2017-06-07] MEDS: LOPRESSOR PO SCH ×2 (10:05→21:08)
[2017-06-07] MEDS: PLAVIX PO SCH (10:05)
--- NOTE | 2017-06-07 11:27 | PN ---
DATE OF SERVICE: 06/05/17 SUBJECTIVE: The patient is sedated with Haldol. Nurses were trying to get the IV lines so that they could start the IV fluids for the acute renal failure. REVIEW OF SYSTEMS: CONSTITUTIONAL: No fever, no chills. HEENT: Normal. ENDOCRINE: No weight gain, no weight loss. CVS: No angina symptoms. No CHF symptoms. No palpitations. No atypical chest pain for CAD. No shortness of breath. No PND, no orthopnea. RESPIRATORY: No cough, no hemoptysis. GI: No nausea, no vomiting. No abdominal pain. : No hematuria. No polyuria. MUSCULOSKELETAL: No joint swelling. PSYCHIATRIC: Not anxious. No depression. No suicidal thoughts. No homicidal thoughts. SKIN: Intact. No rash. PHYSICAL EXAMINATION: V/S: blood pressure 133/83, respiratory rate 24, heart 100, temperature 96.4, saturation 95 on 2 liters. HEENT: Normocephalic, atraumatic. Mucosa dry. Pallor positive. no icterus. NECK: Supple. No JVD, no carotid bruit. No lymphadenopathy. LUNGS: Decreased and basilar crackles. Clear to auscultation. No rales or rhonchi. HEART: S1, S2 normal. No S3. No murmur, gallop or regurgitation. ABDOMEN: Soft, nontender. Bowel sounds active. No rigidity. No rebound or guarding. No CVA tenderness. EXTREMITIES: No clubbing, cyanosis. +1 edema. MUSCULOSKELETAL: No joint swelling. NEUROLOGIC: The patient response to verbal stimuli and goes back to sleep. No focal deficit. LYMPHATIC: No lymph nodes palpable. SKIN: Intact. LABS: Sodium 143, potassium 4.7, chloride 111, bicarb 23, BUN 67, creatinine 1.74, WBC 16.82, hgb 11.5, hct 34.5, plt count 302. ASSESSMENT: 1. Acute one chronic renal failure gradually getting better 2. Pneumonia 3. Change in mental status from dementia 4. Delirium 5. Status post rapid atrial fibrillation 6. CAD 7. CHF PLAN: 1. Continue the Haldol twice a day 2. Start the IV fluids on the patient 3. Daily I&O's TIME SPENT: More than 35 minutes MTDD
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
--- NOTE | 2017-06-07 12:56 | PN ---
DATE OF SERVICE: 06/03/17 SUBJECTIVE: The patient has very much confusion state with dementia, delirious and keeps pulling out the IV line. Given the fluids is very difficult. The family wants the usp placement. BUN and creatinine last time on June 01 wa 81 and 1.50, hgb is stable. REVIEW OF SYSTEMS: CONSTITUTIONAL: No fever, no chills. HEENT: Normal. ENDOCRINE: No weight gain, no weight loss. CVS: No angina symptoms. No CHF symptoms. No palpitations. No atypical chest pain for CAD. No shortness of breath. No PND, no orthopnea. RESPIRATORY: No cough, no hemoptysis. GI: No nausea, no vomiting. No abdominal pain. : No hematuria. No polyuria. MUSCULOSKELETAL: No joint swelling. PSYCHIATRIC: Not anxious. No depression. No suicidal thoughts. No homicidal thoughts. SKIN: Intact. No rash. PHYSICAL EXAMINATION: V/S: Blood pressure 138/83, respiratory rate 20, heart rate 119, temperature 96.9 and saturation 97. HEENT: Normocephalic, atraumatic. Mucosa dry. NECK: Supple. No JVD, no carotid bruit. No lymphadenopathy. LUNGS: Bilateral entry is decreased and basilar crackles. No rales or rhonchi. HEART: S1, S2 normal. No S3. No murmur, gallop or regurgitation. ABDOMEN: Soft, nontender. Bowel sounds active. No rigidity. No rebound or guarding. No CVA tenderness. EXTREMITIES: No clubbing, cyanosis. 1+ edema. MUSCULOSKELETAL: No joint swelling. NEUROLOGIC: Awake, alert, but not oriented times three. No focal deficit. LYMPHATIC: No lymph nodes palpable. SKIN: Intact. LABS: WBC 15.04, hgb 12.4, hct 37.1, plt count 362, sodium 139, potassium 4.4, chloride 105, bicarb 27, BUN 82 and creatinine 1.50. ASSESSMENT: 1. Change in mental status mostly from the Alzheimer's dementia and behavior changes 2. Pneumonia 3. Status post rapid atrial fibrillation 4. CAD 5. CHF 6. Acute on chronic renal failure PLAN: 1. Get the IV line 2. Start the IV fluids 3. Breathing treatments 4. Daily I&O's 5. prison placement. TIME SPENT: More than 35 minutes MTDD
--- NOTE | 2017-06-07 14:24 | PN ---
DATE OF SERVICE: 06/02/17 SUBJECTIVE: Again the patient is taking out her IV line. She is upset that her son did not come and pick her up. I did explain that the son was preoccupied by some other things and he will be coming here and verbalized understanding and agreed to get IV line and antibiotic. She says that she don't want to go to the shelter. REVIEW OF SYSTEMS: CONSTITUTIONAL: No fever, no chills. HEENT: Normal. ENDOCRINE: No weight gain, no weight loss. CVS: No angina symptoms. No CHF symptoms. No palpitations. No atypical chest pain for CAD. No shortness of breath. No PND, no orthopnea. RESPIRATORY: No cough, no hemoptysis. GI: No nausea, no vomiting. No abdominal pain. : No hematuria. No polyuria. MUSCULOSKELETAL: No joint swelling. PSYCHIATRIC: Not anxious. No depression. No suicidal thoughts. No homicidal thoughts. SKIN: Intact. No rash. PHYSICAL EXAMINATION: V/S: Blood pressure 132/84, respiratory rate 18, heart rate 72, temperature 98 and saturation is 95 on the room air. HEENT: Normocephalic, atraumatic. Mucosa dry. NECK: Supple. No JVD, no carotid bruit. No lymphadenopathy. LUNGS: Bilateral entry is decreased and basilar crackles. No rales or rhonchi. HEART: S1, S2 normal. No S3. No murmur, gallop or regurgitation. ABDOMEN: Soft, nontender. Bowel sounds active. No rigidity. No rebound or guarding. No CVA tenderness. EXTREMITIES: No clubbing, cyanosis. 2+ edema. MUSCULOSKELETAL: No joint swelling. NEUROLOGIC: Awake, alert. No focal deficit. LYMPHATIC: No lymph nodes palpable. SKIN: Intact. LABS: Sodium 139, potassium 4.4, chloride 105, bicarb 27, BUN 82, creatinine 1.50, WBC 15.04, hgb 12.4, hct 37.1, plt count 362. ASSESSMENT: 1. Change in mental status most likely from the Alzheimer's Dementia and confusion, delirium 2. Acute on chronic renal failure 3. Anemia 4. Pneumonia 5. Atrial fibrillation 6. CAD 7. Congestive heart failure PLAN: 1. IV line 2. IV fluids 3. Rocephin 4. DUO NEBS 5. Xopenex 6. Continue Eliquis. TIME SPENT: More than 35 minutes MTDD
--- NOTE | 2017-06-07 14:32 | PN ---
DATE OF SERVICE: 06/01/17 SUBJECTIVE: The patient was admitted with rapid atrial fibrillation and pneumonia. The patient is refusing to get the IV line. The patient has some confusion. We did give some Ativan and did help her to calm down but still was not able to get the IV lines. REVIEW OF SYSTEMS: CONSTITUTIONAL: No fever, no chills. HEENT: Normal. ENDOCRINE: No weight gain, no weight loss. CVS: No angina symptoms. No CHF symptoms. No palpitations. No atypical chest pain for CAD. No shortness of breath. No PND, no orthopnea. RESPIRATORY: No cough, no hemoptysis. GI: No nausea, no vomiting. No abdominal pain. : No hematuria. No polyuria. MUSCULOSKELETAL: No joint swelling. PSYCHIATRIC: Not anxious. No depression. No suicidal thoughts. No homicidal thoughts. SKIN: Intact. No rash. PHYSICAL EXAMINATION: V/S: Blood pressure 142/78, respiratory rate 22, heart rate 76, temperature 97.4 , saturation 88. HEENT: Normocephalic, atraumatic. Mucosa dry. Pallor positive. No icterus. NECK: Supple. No JVD, no carotid bruit. No lymphadenopathy. LUNGS: Decreased and basilar crackles. No rales or rhonchi. HEART: S1, S2 normal. No S3. No murmur, gallop or regurgitation. ABDOMEN: Soft, nontender. Bowel sounds active. No rigidity. No rebound or guarding. No CVA tenderness. EXTREMITIES: No clubbing, cyanosis. 1+ edema. MUSCULOSKELETAL: No joint swelling. NEUROLOGIC: Awake, alert but not oriented to time, place and person. No focal deficit. LYMPHATIC: No lymph nodes palpable. SKIN: Intact. LABS: WBC 13.56, hgb 12.3, hct 37.4, sodium 143, potassium 4.1, chloride 107, bicarb 27,BUN 81, creatinine 1.58, glucose 154. ASSESSMENT: 1. Acute on chronic renal failure 2. COPD Exacerbation 3. Pneumonia 4. Status post rapid atrial fibrillation 5. CAD 6. CHF 7. Hypertension 8. Alzheimer's Dementia with change in behavior PLAN: 1. IV fluids did verbalized understanding 2. Ativan 0.5mg twice a day 3. DUO NEBS 4. Rocephin TIME SPENT: More than 35 minutes MTDD
[2017-06-07] MEDS: DEXTROSE 5%-WATER IV SOLN 500 ML IV SCH (16:16)
[2017-06-07] MEDS: HUMULIN R SUBCUT PRN (21:07)
[2017-06-08] MEDS: DEXTROSE 5%-WATER IV SOLN 500 ML IV SCH ×3 (00:53→17:27)
[2017-06-08] MEDS: MORPHINE 2 MG/ML SYRINGE IVP PRN ×3 (00:57→17:31)
[2017-06-08] MEDS: XOPENEX 1.25 MG NEB SCH ×2 (04:48→14:16)
[2017-06-08] MEDS: ATIVAN IM PRN ×2 (04:56→11:11)
[2017-06-08] MEDS: HUMULIN R SUBCUT PRN ×2 (06:02→21:23)
[2017-06-08] MEDS: LOPRESSOR PO SCH ×2 (08:03→20:17)
[2017-06-08] MEDS: PREDNISONE PO SCH ×2 (08:03→19:04)
[2017-06-08] MEDS: CARDIZEM CD PO SCH (08:04)
[2017-06-08] MEDS: ELIQUIS PO SCH ×2 (08:04→20:16)
[2017-06-08] MEDS: ROCEPHIN 1 GM in SODIUM CHLORIDE 50 ML IV SCH (08:05)
[2017-06-08] MEDS: LASIX IV SCH ×2 (10:26→17:27)
[2017-06-08] MEDS: SODIUM CHLORIDE IV SCH ×2 (10:26→17:27)
[2017-06-08] MEDS: GEODON IM SCH ×2 (11:11→20:16)
[2017-06-08] MEDS: HALDOL IM SCH ×2 (11:11→20:15)
[2017-06-08] MEDS: PLAVIX PO SCH (11:16)
[2017-06-09] MEDS: XOPENEX 1.25 MG NEB SCH ×4 (00:20→20:50)
[2017-06-09] MEDS: DEXTROSE 5%-WATER IV SOLN 500 ML IV SCH ×4 (02:05→19:47)
[2017-06-09] MEDS: ATIVAN IM PRN ×3 (05:30→19:53)
[2017-06-09] MEDS: HUMULIN R SUBCUT PRN ×2 (06:16→21:23)
[2017-06-09] MEDS: ROCEPHIN 1 GM in SODIUM CHLORIDE 50 ML IV SCH (09:06)
[2017-06-09] MEDS: HALDOL IM SCH ×2 (09:06→21:20)
[2017-06-09] MEDS: GEODON IM SCH ×2 (09:06→21:19)
[2017-06-09] MEDS: MORPHINE 2 MG/ML SYRINGE IVP PRN (09:07)
[2017-06-09] MEDS: CARDIZEM CD PO SCH (09:43)
[2017-06-09] MEDS: PLAVIX PO SCH (09:44)
[2017-06-09] MEDS: PREDNISONE PO SCH ×2 (09:44→17:28)
[2017-06-09] MEDS: ELIQUIS PO SCH ×2 (09:44→21:18)
[2017-06-09] MEDS: LOPRESSOR PO SCH ×2 (09:44→21:19)
[2017-06-09] MEDS: LASIX IV SCH ×2 (11:29→14:58)
[2017-06-09] MEDS: SODIUM CHLORIDE IV SCH ×2 (11:29→14:58)
[2017-06-10] MEDS: SODIUM CHLORIDE IV SCH ×2 (02:10→14:01)
[2017-06-10] MEDS: LASIX IV SCH ×2 (02:10→14:01)
[2017-06-10] MEDS: DEXTROSE 5%-WATER IV SOLN 500 ML IV SCH ×2 (03:58→16:51)
[2017-06-10] MEDS: XOPENEX 1.25 MG NEB SCH ×3 (04:36→20:46)
[2017-06-10] MEDS: ROCEPHIN 1 GM in SODIUM CHLORIDE 50 ML IV SCH (09:53)
[2017-06-10] MEDS: HALDOL IM SCH ×2 (09:53→20:46)
[2017-06-10] MEDS: GEODON IM SCH ×2 (09:53→20:46)
[2017-06-10] MEDS: MORPHINE 2 MG/ML SYRINGE IVP PRN (09:54)
[2017-06-10] MEDS: ATIVAN IM PRN (09:54)
[2017-06-10] MEDS: CARDIZEM CD PO SCH (09:55)
[2017-06-10] MEDS: LOPRESSOR PO SCH ×2 (09:56→20:47)
[2017-06-10] MEDS: ELIQUIS PO SCH ×2 (09:56→20:47)
[2017-06-10] MEDS: PLAVIX PO SCH (09:57)
[2017-06-10] MEDS: PREDNISONE PO SCH ×2 (09:57→16:51)
[2017-06-10] MEDS: DEXTROSE 5%-WATER IV SOLN 1,000 ML IV SCH (14:01)
[2017-06-11] MEDS: LASIX IV SCH ×2 (00:49→22:48)
[2017-06-11] MEDS: SODIUM CHLORIDE IV SCH ×2 (00:49→22:48)
[2017-06-11] MEDS: DEXTROSE 5%-WATER IV SOLN 1,000 ML IV SCH ×2 (04:37→19:59)
[2017-06-11] MEDS: XOPENEX 1.25 MG NEB SCH ×3 (05:46→23:44)
[2017-06-11] MEDS ORDERED: PREDNISONE PO SCH (09:01)
[2017-06-11] MEDS: CARDIZEM CD PO SCH (10:14)
[2017-06-11] MEDS: PLAVIX PO SCH (10:16)
[2017-06-11] MEDS: ELIQUIS PO SCH ×2 (10:16→20:01)
[2017-06-11] MEDS: LOPRESSOR PO SCH ×2 (10:16→20:00)
[2017-06-11] MEDS: PREDNISONE PO SCH ×2 (10:17→17:46)
[2017-06-11] MEDS: GEODON IM SCH ×2 (10:23→19:59)
[2017-06-11] MEDS: HALDOL IM SCH ×2 (10:24→20:00)
[2017-06-11] MEDS ORDERED: LASIX ONE ×2 (13:46→22:43)
--- NOTE | 2017-06-11 14:25 | PN ---
DATE OF SERVICE: 06/10/17 SUBJECTIVE: The patient was admitted with rapid atrial fibrillation and right now in acute renal failure. Family doesn't want any hemodialysis. We are running the Lasix drip on the patient hoping the kidney's will open up otherwise the patient being sedated because of her aggressive behavior and pulling the IV lines. The patient's granddaughter and son are present and being discussed about the case mostly. REVIEW OF SYSTEMS: CONSTITUTIONAL: No fever, no chills. HEENT: Normal. ENDOCRINE: No weight gain, no weight loss. CVS: No angina symptoms. No CHF symptoms. No palpitations. No atypical chest pain for CAD. No shortness of breath. No PND, no orthopnea. RESPIRATORY: No cough, no hemoptysis. GI: No nausea, no vomiting. No abdominal pain. : No hematuria. No polyuria. MUSCULOSKELETAL: No joint swelling. PSYCHIATRIC: Not anxious. No depression. No suicidal thoughts. No homicidal thoughts. SKIN: Intact. No rash. PHYSICAL EXAMINATION: V/S: Blood pressure 139/75, respiratory rate 20, heart rate 113, temperature 98.2 with saturation 95% on 4 liters. HEENT: Normocephalic, atraumatic. Mucosa dry. NECK: Supple. No JVD, no carotid bruit. No lymphadenopathy. LUNGS: Bilateral entry is decreased and basilar crackles. No rales or rhonchi. HEART: S1, S2 normal. No S3. No murmur, gallop or regurgitation. ABDOMEN: Soft, nontender. Bowel sounds active. No rigidity. No rebound or guarding. No CVA tenderness. EXTREMITIES: No clubbing, cyanosis or pedal edema. MUSCULOSKELETAL: No joint swelling. NEUROLOGIC: Response to painful stimuli and goes back to sleep. No focal deficit. LYMPHATIC: No lymph nodes palpable. SKIN: Intact. LABS: Sodium 150, potassium 5.1, chloride 118, bicarb 24, BUN 89, creatinine 2.19, WBC 15.0, hgb 11.3, hct 36.5, plt count 239. ASSESSMENT: 1. Acute renal failure 2. COPD exacerbation secondary to the pneumonia 3. Change in mental status from Alzheimer's Dementia 4. Behavioral changes, Being treated with Haldol 2mg Q 12 hours PLAN: 1. Continue Rocephin 1 gram daily 2. Eliquis 2.5mg twice a day 3. Diltazem 240mg PO daily 4. Lasix drip TIME SPENT: More than 35 minutes Poor outcome being discussed with the patient's family and verbalized understanding. MTDD
[2017-06-11] MEDS: HUMULIN R SUBCUT PRN (22:47)
[2017-06-12] MEDS: ROCEPHIN 1 GM in SODIUM CHLORIDE 50 ML IV SCH (00:36)
[2017-06-12] MEDS: PREDNISONE PO SCH ×3 (00:36→17:49)
[2017-06-12] MEDS: XOPENEX 1.25 MG NEB SCH ×3 (05:00→21:48)
[2017-06-12] MEDS: HUMULIN R SUBCUT PRN ×3 (06:22→20:55)
[2017-06-12] MEDS: CARDIZEM CD PO SCH (11:10)
[2017-06-12] MEDS: ELIQUIS PO SCH ×2 (11:11→20:56)
[2017-06-12] MEDS: GEODON IM SCH ×2 (11:12→20:56)
[2017-06-12] MEDS: LOPRESSOR PO SCH ×2 (11:13→20:56)
[2017-06-12] MEDS: HALDOL IM SCH ×2 (11:13→20:56)
[2017-06-12] MEDS: PLAVIX PO SCH (11:14)
[2017-06-12] MEDS ORDERED: LASIX ONE ×2 (12:05→23:16)
[2017-06-12] MEDS: SODIUM CHLORIDE IV SCH ×2 (12:10→23:20)
[2017-06-12] MEDS: LASIX IV SCH ×2 (12:10→23:20)
[2017-06-12] MEDS: DEXTROSE 5%-WATER IV SOLN 1,000 ML IV SCH (13:46)
[2017-06-13] MEDS: XOPENEX 1.25 MG NEB SCH ×3 (05:02→22:49)
[2017-06-13] MEDS: HUMULIN R SUBCUT PRN ×4 (06:09→22:12)
[2017-06-13] MEDS: DEXTROSE 5%-WATER IV SOLN 1,000 ML IV SCH ×2 (06:09→22:13)
[2017-06-13] MEDS ORDERED: LASIX ONE ×2 (08:17→18:47)
[2017-06-13] MEDS: SODIUM CHLORIDE IV SCH (08:22)
[2017-06-13] MEDS: LASIX IV SCH (08:22)
[2017-06-13] MEDS: HALDOL IM SCH ×2 (11:04→22:15)
[2017-06-13] MEDS: GEODON IM SCH ×2 (11:05→22:19)
[2017-06-13] MEDS: CARDIZEM CD PO SCH (11:15)
[2017-06-13] MEDS: PREDNISONE PO SCH ×2 (11:17→16:42)
[2017-06-13] MEDS: LOPRESSOR PO SCH ×2 (11:18→22:12)
[2017-06-13] MEDS: PLAVIX PO SCH (11:19)
[2017-06-13] MEDS: ELIQUIS PO SCH ×2 (11:20→22:12)
--- NOTE | 2017-06-13 14:46 | PN ---
DATE OF SERVICE: 06/08/17 SUBJECTIVE: Admitted with COPD exacerbation, rapid atrial fibrillation and acute renal failure. Renal function is getting worse. The patient has been sedated because her behavior has been restless and pulling IV site. Ever since we started giving Haldol, the patient is quiet and agreeable for IV fluids. The patient and family do not want any hemodialysis or aggressive measurements at this time so the patient is kept at [facility]. REVIEW OF SYSTEMS: CONSTITUTIONAL: No fever, no chills. HEENT: Normal. ENDOCRINE: No weight gain, no weight loss. CVS: No angina symptoms. No CHF symptoms. No palpitations. No atypical chest pain for CAD. No shortness of breath. No PND, no orthopnea. RESPIRATORY: No cough, no hemoptysis. GI: No nausea, no vomiting. No abdominal pain. : No hematuria. No polyuria. MUSCULOSKELETAL: No joint swelling. PSYCHIATRIC: Not anxious. No depression. No suicidal thoughts. No homicidal thoughts. SKIN: Intact. No rash. PHYSICAL EXAMINATION: V/S: BP 140/84, respiratory rate 24, heart rate 159, temperature 98, saturation 92 on 6L HEENT: Normocephalic, atraumatic. Mucosa dry. Pallor positive. No icterus. NECK: Supple. No JVD, no carotid bruit. No lymphadenopathy. LUNGS: Decreased entry with basilar crackles. Clear to auscultation. No rales or rhonchi. HEART: S1, S2 normal. No S3. No murmur, gallop or regurgitation. ABDOMEN: Soft, nontender. Bowel sounds active. No rigidity. No rebound or guarding. No CVA tenderness. EXTREMITIES: No clubbing, cyanosis or pedal edema. MUSCULOSKELETAL: No joint swelling. NEUROLOGIC: Responds to painful stimuli and goes back to sleep. No focal deficit. LYMPHATIC: No lymph nodes palpable. SKIN: Intact. LABS: White count 14.0, hemoglobin 11.3, hematocrit 35.5, platelet count 239. Sodium 150, potassium 5.1, chloride 118, bicarb 24, BUN 89, creatinine 2.18, glucose 200. ASSESSMENT: 1. ACUTE RENAL FAILURE WITH FLUID OVERLOAD, FAMILY DOES NOT WANT ANY AGGRESSIVE MEASUREMENTS AT THIS TIME. 2. COPD EXACERBATION 3. STATUS POST RAPID ATRIAL FIBRILLATION 4. HYPERTENSION 5. DYSLIPIDEMIA 6. ALZHEIMER'S DEMENTIA WITH BEHAVIORAL CHANGES PLAN: 1. Continue D5W 2. Eliquis 2.5 mg b.i.d. 3. Rocephin 1 gm daily 4. Plavix 5. Diltiazem 6. IV Lasix drip 7. Haloperidol p.r.n. 8. Daily I & O's TIME SPENT: More than 35 minutes, critical care time MTDD
[2017-06-13] MEDS ORDERED: K-DUR PO STA (15:42)
[2017-06-14] MEDS ORDERED: LASIX ONE ×2 (04:12→21:45)
[2017-06-14] MEDS: DEXTROSE 5%-WATER IV SOLN 1,000 ML IV SCH ×2 (04:13→14:08)
[2017-06-14] MEDS: XOPENEX 1.25 MG NEB SCH ×3 (04:42→20:29)
[2017-06-14] MEDS: HUMULIN R SUBCUT PRN ×3 (05:45→21:30)
[2017-06-14] MEDS: LASIX IV SCH ×2 (05:47→21:48)
[2017-06-14] MEDS: SODIUM CHLORIDE IV SCH ×2 (05:47→21:48)
--- NOTE | 2017-06-14 08:30 | PN ---
DATE OF SERVICE: 06/12/17 SUBJECTIVE: The patient was admitted with the atrial fibrillation. The patient is more awake and alert today. The patient's family; daughter and the son in the room. The patient's BUN and creatinine getting better. Today the numbers are 56 and 1.79, potassium 2.8. The patient's half son is very happy because of the patient being progressed a lot today. REVIEW OF SYSTEMS: CONSTITUTIONAL: No fever, no chills. HEENT: Normal. ENDOCRINE: No weight gain, no weight loss. CVS: No angina symptoms. No CHF symptoms. No palpitations. No atypical chest pain for CAD. No shortness of breath. No PND, no orthopnea. RESPIRATORY: No cough, no hemoptysis. GI: No nausea, no vomiting. No abdominal pain. : No hematuria. No polyuria. MUSCULOSKELETAL: No joint swelling. PSYCHIATRIC: Not anxious. No depression. No suicidal thoughts. No homicidal thoughts. SKIN: Intact. No rash. PHYSICAL EXAMINATION: V/S: Blood pressure 1201/62, respiratory rate 20, heart rate 108, temperature 97.1 and saturation 94%. HEENT: Normocephalic, atraumatic. Mucosa dry. Pallor positive. No icterus. NECK: Supple. No JVD, no carotid bruit. No lymphadenopathy. LUNGS: Basilar crackles. No rales or rhonchi. HEART: S1, S2 normal. No S3. No murmur, gallop or regurgitation. ABDOMEN: Soft, nontender. Bowel sounds active. No rigidity. No rebound or guarding. No CVA tenderness. EXTREMITIES: No clubbing, cyanosis or pedal edema. MUSCULOSKELETAL: No joint swelling. NEUROLOGIC: Awake, alert and responding to the verbal stimuli. No focal deficit. LYMPHATIC: No lymph nodes palpable. SKIN: Intact. LABS: Sodium 145, potassium 2.8, chloride 196, bicarb 40, BUN 56, creatinine 1.57, WBC 11.73, hgb 12.3, hct 37.4, plt count 185. ASSESSMENT: 1. Acute on chronic renal failure with his improving a lot 2. Hypokalemia 3. Hypernatremia 4. Rapid atrial fibrillation which is better 5. Pneumonia 6. CAD 7. CHF PLAN: 1. Continue the Lasix drip 2. Continue soft diet 3. D5 half normal saline 4. Morphine 2mg Q 6 hours PRN 5. Prednisone PO 6. Daily I&O Critical status been discussed with the patient's family and verbalized understanding. TIME SPENT: More than 35 minutes MTDD
--- NOTE | 2017-06-14 08:36 | PN ---
DATE OF SERVICE: 06/11/17 SUBJECTIVE: The patient was admitted with COPD exacerbation, rapid atrial fibrillation and pneumonia complicated with the renal failure. The patient has change in mental status with the delirium. The patient been sedated with the Haldol. Lasix drip has been given and slowly the urine output has been increasing. REVIEW OF SYSTEMS: CONSTITUTIONAL: No fever, no chills. HEENT: Normal. ENDOCRINE: No weight gain, no weight loss. CVS: No angina symptoms. No CHF symptoms. No palpitations. No atypical chest pain for CAD. No shortness of breath. No PND, no orthopnea. RESPIRATORY: No cough, no hemoptysis. GI: No nausea, no vomiting. No abdominal pain. : No hematuria. No polyuria. MUSCULOSKELETAL: No joint swelling. PSYCHIATRIC: Not anxious. No depression. No suicidal thoughts. No homicidal thoughts. SKIN: Intact. No rash. PHYSICAL EXAMINATION: V/S: Blood pressure 134/69, respiratory rate 22, heart rate 98, temperature 97.3 , saturation 91 on the 4 liters. HEENT: Normocephalic, atraumatic. Mucosa dry. NECK: Supple. No JVD, no carotid bruit. No lymphadenopathy. LUNGS: Decreased and basilar crackles. No rales or rhonchi. HEART: S1, S2 normal. No S3. No murmur, gallop or regurgitation. ABDOMEN: Soft, nontender. Bowel sounds active. No rigidity. No rebound or guarding. No CVA tenderness. EXTREMITIES: No clubbing, cyanosis or pedal edema. MUSCULOSKELETAL: No joint swelling. NEUROLOGIC: Responses to the verbal stimuli and goes back to sleep. No focal deficit. LYMPHATIC: No lymph nodes palpable. SKIN: Intact. LABS: WBC 14.0, hgb 11.3, hct 36.5,. plt count 239, sodium 147, potassium 3.2, chloride 104, bicarb 33, BUN 16 and creatinine 1.79 and glucose 160. ASSESSMENT: 1. Acute on chronic renal failure on Lasix drip for fluid overload 2. Hypernatremia 3. Hypokalemia 4. Status post rapid atrial fibrillation 5. CAD 6. CHF PLAN: 1. Continue the Lasix drip 2. Breathing treatments 3. Haldol 4. Prednisone 10mg PO daily TIME SPENT: More than 35 minutes MTDD
[2017-06-14] MEDS: LOPRESSOR PO SCH ×2 (09:54→21:32)
[2017-06-14] MEDS: PLAVIX PO SCH (09:54)
[2017-06-14] MEDS: CARDIZEM CD PO SCH (09:54)
[2017-06-14] MEDS: PREDNISONE PO SCH ×2 (09:54→17:26)
[2017-06-14] MEDS: ELIQUIS PO SCH ×2 (09:54→21:35)
[2017-06-14] MEDS: HALDOL IM SCH ×2 (09:56→21:39)
[2017-06-14] MEDS: GEODON IM SCH ×2 (09:56→21:38)
[2017-06-14] MEDS: MORPHINE 2 MG/ML SYRINGE IVP PRN (11:00)
[2017-06-14] MEDS ORDERED: K-DUR PO STA (11:03)
--- NOTE | 2017-06-14 15:56 | DI ---
EXAM: CHEST FRONTAL VIEW HISTORY: Follow-up left lobe pneumonia. FINDINGS / IMPRESSION: Compared to 06/05/2017. Prominent heart size is stable. There is aortic atherosclerosis. Limited AP frontal view reveals pe rsistent mild density over the left base which may simply represent superimposed soft tissues or atel ectasis. Minimal residual pneumonia not excluded. This is slightly more dense than previously seen. Follow up with radiography if indicated clinically.
[2017-06-15] MEDS: XOPENEX 1.25 MG NEB SCH ×2 (04:55→14:20)
[2017-06-15] MEDS: HUMULIN R SUBCUT PRN ×2 (06:03→11:56)
[2017-06-15] MEDS: DEXTROSE 5%-WATER IV SOLN 1,000 ML IV SCH ×2 (07:40→11:50)
[2017-06-15] MEDS: HALDOL IM SCH (09:02)
[2017-06-15] MEDS: CARDIZEM CD PO SCH (09:03)
[2017-06-15] MEDS: PREDNISONE PO SCH (09:03)
[2017-06-15] MEDS: PLAVIX PO SCH (09:03)
[2017-06-15] MEDS: GEODON IM SCH (09:03)
[2017-06-15] MEDS: LOPRESSOR PO SCH (09:04)
[2017-06-15] MEDS: ELIQUIS PO SCH (09:04)
[2017-06-15] MEDS ORDERED: DEXTROSE 5%-WATER IV SOLN 1,000 ML IV SCH (11:49)
[2017-06-15 14:15] VITALS: BP 123/74; TEMP 96.5
--- NOTE | 2017-06-15 14:46 | CM.DICTOOL ---
ADMISSION: 05/27/17 14:34 DISCHARGE: 06/15/17 DATE OF SERVICE: 06/15/17 FINAL DIAGNOSIS RENAL FAILURE A-FIB WITH RVR LEFT LOWER LOBE PNEUMONIA CONGESTIVE HEART FAILURE DEMENTIA ANXIETY COPD CAD, S/P STENT APPLICATION DM, TYPE 2 DYSLIPIDEMIA HISTORY OF CHRONIC LEG EDEMA HYPERTENSION KIDNEY DISEASE, ACUTE ON CHRONIC HIATAL HERNIA GERD DIABETES, TYPE 2 OSTEOARTHRITIS GOUT HYSTERECTOMY CATARACT SURGERY LAST VITALS Temp Pulse Resp BP Pulse Ox 96.5 F L 78 24 123/74 90 L 06/15/17 14:00 06/15/17 14:00 06/15/17 14:00 06/15/17 14:00 06/15/17 14:00 ACTIVE HOME MEDICATIONS Apixaban (Eliquis) 2.5 mg PO BID [facility] Last Admin: 06/15/17 09:04 Dose: 2.5 mg Bisacodyl (Laxative) 5 mg, give 10 mg PO BEDTIME Clopidogrel Bisulfate (Plavix) 75 mg PO DAILY [facility] Last Admin: 06/15/17 09:03 Dose: 75 mg Diltiazem HCl (Cardizem Cd) 240 mg PO DAILY [facility] Last Admin: 06/15/17 09:03 Dose: 240 mg Furosemide (Lasix) 40 mg PO MOWEFRSA Metoprolol Tartrate (Lopressor) 50 mg PO BID [facility] Last Admin: 06/15/17 09:04 Dose: 50 mg ALLERGIES pneumococcal vaccine Adverse Reaction (Verified 05/27/17 11:01) Swelling NEW PRESCRIPTIONS: RESUME HOME MEDICATIONS PER LIST PROVIDED BY THE NURSING STAFF DO NOT GIVE: OMNICEF VENTOLIN HFA ALLOPURINOL VIT D3 FERROUS SULFATE ADVAIR PREDNIOSNE ZOCOR NEW MEDICATIONS HALDOL 2.5 MG PO BID XOPENEX 1.25, ONE NEB TID ATIVAN 1 MG PO Q 8 HOURS PRN AGITATION/RESTLESSNESS REGULAR INSULIN FOR SLIDING SCALE ACCU-CHECKS ACHS XYPREXA 2.5 MG PO BID OXYGEN AT 3L/NC TO KEEP SATS GREATER THAN OR EQUAL TO 91% SMOKING: CURRENT EVERY DAY SMOKER LAB REVIEW: 06/15/17 04:20 06/15/17 04:20 06/15/17 04:20: Sodium 135 L, Potassium 3.6, Chloride 89 L, Carbon Dioxide 38 H , Anion Gap 11.6, BUN 61 H*, Creatinine 1.66 H, Estimated GFR (MDRD) 30.00, BUN/ Creatinine Ratio 36.74, Glucose 186 H, Calcium 9.1, Total Bilirubin 0.7, AST 13 L, ALT 16, Alkaline Phosphatase 86, Total Protein 5.6 L, Albumin 2.6 L, Globulin 3.0, Albumin/Globulin Ratio 0.87 06/15/17 04:20: WBC 16.22 H, RBC 3.86 L, Hgb 11.5 L, Hct 34.7 L, MCV 89.9, MCH 29.8, MCHC 33.1, RDW Coeff of Geraldo 14.7, Plt Count 198, Immature Gran % (Auto) 0.6, Neut % (Auto) 88.2, Lymph % (Auto) 6.4 L, [place] % (Auto) 4.6, Eos % (Auto) 0.1, Baso % (Auto) 0.1, Immature Gran # (Auto) 0.1, Neut # 14.3 H, Lymph # 1.0, G[place]on # 0.8, Eos # 0.0, Baso # 0.0 PLAN: DISCHARGE TO [facility] WITH [facility] DR. MC WILL FOLLOW THIS PATIENT DURING USUAL DETENTION ROUNDS RESUME HOME MEDICATIONS PER LIST PROVIDED BY THE NURSING STAFF DO NOT GIVE: OMNICEF VENTOLIN HFA ALLOPURINOL VIT D3 FERROUS SULFATE ADVAIR PREDNIOSNE ZOCOR NEW MEDICATIONS HALDOL 2.5 MG PO BID XOPENEX 1.25, ONE NEB TID ATIVAN 1 MG PO Q 8 HOURS PRN AGITATION/RESTLESSNESS REGULAR INSULIN FOR SLIDING SCALE ACCU-CHECK READINGS ACHS XYPREXA 2.5 MG PO BID OXYGEN AT 3L/NC TO KEEP SATS GREATER THAN OR EQUAL TO 91% OTHER ORDERS PULSE OXIMETRY PRN V/S DAILY AND PRN FULL LIQUID DIET WITH ASPIRATION PRECAUTIONS ADVANCE IF TOLERATED SUMMARY THE PATIENT IS ALERT AND DISORIENTED. OCCASIONALLY HER SPEECH IS UNDERSTANDABLE BUT HAS BEEN INAPPROPRIATE FOR THE PAST FEW DAYS. FREQUENTLY HER SPEECH IS GARBLED. SHE HAS NOT BEEN ABLE TO EAT ANYTHING SOLID FOR THE PAST 10 DAYS. SHE WILL TAKE LITTLE LIQUIDS. WE HAVE SPOKEN WITH HER SON, NABILA. HE FEELS HE IS UNABLE TO PROVIDE THE LEVEL OF CARE THE PATIENT NOW NEEDS. HE IS AWARE OF THE CURRENT CLINICAL STATUS AND POOR PROGNOSIS. HE IS AGREEABLE FOR HOSPICE SERVICES AT [facility] AND HAS CHOSEN [facility] TO PROVIDE THESE SERVICES. I WILL CONTINUE TO FOLLOW THIS PATIENT ALONG WITH [facility] DURING HER DETENTION STAY. THE FAMILY DESIRES COMFORT MEASURES ONLY AND NO HEROIC MEANS IF THE SITUATION PRESENTS. I WILL ABIDE BY THESE WISHES. CURRENT CODE STATUS: DO NOT RESUSCITATE MAL MC M.D.
--- NOTE | 2017-06-20 12:22 | PN ---
DATE OF SERVICE: 06/07/17 SUBJECTIVE: The patient is more lethargic, couging and congested. BUN and creatinine are worse today. BUN 88, creatinine 2.27. White count 23,000. Family refused to have hemodialysis at this time and they made her a DNR. PHYSICAL EXAMINATION: V/S: Blood pressure 179/118, respiratory rate 24, heart rate 83, temperature 98.2. HEENT: Normocephalic, atraumatic. Mucosa dry. NECK: Supple. No JVD, no carotid bruit. No lymphadenopathy. LUNGS: Decreased basilar crackles. No rales or rhonchi. HEART: S1, S2 normal. No S3. No murmur, gallop or regurgitation. ABDOMEN: Soft, nontender. Bowel sounds active. No rigidity. No rebound or guarding. No CVA tenderness. EXTREMITIES: 1 + edema. No clubbing or cyanosis MUSCULOSKELETAL: No joint swelling. NEUROLOGIC: Responds to verbal stimuli and goes back to sleep. No focal deficit. LYMPHATIC: No lymph nodes palpable. SKIN: Intact. LABS: Sodium 150, potassium 5.0, chloride 118, bicarb 25, BUN 88, creatinine 2.27, white count 23.68, hemoglobin 11.9, hematocrit 37.4, platelet count 275. ASSESSMENT: 1. ACUTE ON CHRONIC RENAL FAILURE 2. CHRONIC OBSTRUCTIVE PULMONARY DISEASE EXACERBATION SECONDARY PNEUMONIA AND BRONCHITIS 3. CORONARY ARTERY DISEASE 4. CONGESTIVE HEART FAILURE 5. ATRIAL FIBRILLATION PLAN: 1. Rocephin 1 gram daily. 2. Plavix. 3. IV fluids without water 16 ml per hour. 4. Cardizem 240 p.o. daily. 5. The patient is not taking any oral medications at this time. 6. Will encourage on the IV Solu-Medrol one dose 125 mg stat. CONDITION: The patient's condition is very severely ill and the patient's family been informed about this. The patient's family, the son who is POA, made her a DNR. Refused to have hemodialysis or any transfer to the [facility] at this time. TIME SPENT: More than 45 minutes, which is critical care time. [facility]
--- NOTE | 2017-06-21 13:13 | PN ---
DATE OF SERVICE: 06/09/17 SUBJECTIVE: The patient's granddaughter is in the room. Again, verbalized understanding that the patient's condition is getting worse and they do not want any hemodialysis done at this time. The patient is still having difficulty breathing and some coughing. Haldol is keeping her calm and quiet. She is getting the IV fluids and the Lasix drip. PHYSICAL EXAMINATION: V/S: Blood pressure 143/92, respiratory rate 20, heart rate 110, temperature 98.2, saturation 95 on 6 liters. HEENT: Normocephalic, atraumatic. Mucosa dry. Pallor positive. NECK: Supple. No JVD, no carotid bruit. No lymphadenopathy. LUNGS: Decreased basilar crackles. No rales or rhonchi. HEART: S1, S2 normal. No S3. No murmur, gallop or regurgitation. ABDOMEN: Soft, nontender. Bowel sounds active. No rigidity. No rebound or guarding. No CVA tenderness. EXTREMITIES: No pedal edema. No clubbing or cyanosis MUSCULOSKELETAL: No joint swelling. NEUROLOGIC: Responds to the verbal stimuli, but very groggy and slurry speech. LYMPHATIC: No lymph nodes palpable. SKIN: Intact. LABS: From yesterday, sodium 150, potassium 5.1, chloride 118, bicarb 24, BUN 18, creatinine 2.19, white count 14.0, hemoglobin 11.3, hematocrit 36.5, platelet count is 239. ASSESSMENT: 1. ACUTE RENAL FAILURE. THE FAMILY DOES NOT WANT ANY HEMODIALYSIS OR AGGRESSIVE MANAGEMENT AT THIS TIME 2. COPD EXACERBATION SECONDARY TO THE PNEUMONIA 3. ATRIAL FIBRILLATION 4. ALZHEIMER'S DEMENTIA WITH BEHAVIORAL CHANGES 5. ANXIETY DISORDER 6. DYSLIPIDEMIA PLAN: 1. Continue Rocephin, Lasix drip, IV fluids. 2. Daily I & O's. Poor prognosis was discussed with the patient's family and they verbalized understanding. TIME SPENT: More than 35 minutes MTDD
--- NOTE | 2017-06-27 11:53 | PN ---
DATE OF SERVICE: 06/13/17 SUBJECTIVE: The patient is more lethargic today. Cough, congestion and wheezing is present. Trying to pull out IV line. REVIEW OF SYSTEMS: CONSTITUTIONAL: No fever, no chills. HEENT: Normal. ENDOCRINE: No weight gain, no weight loss. CVS: No angina symptoms. No CHF symptoms. No palpitations. No atypical chest pain for CAD. No shortness of breath. No PND, no orthopnea. RESPIRATORY: Cough, congestion and wheezing. No hemoptysis. GI: No nausea, no vomiting. No abdominal pain. : No hematuria. No polyuria. MUSCULOSKELETAL: No joint swelling. PSYCHIATRIC: Not anxious. No depression. No suicidal thoughts. No homicidal thoughts. SKIN: Intact. No rash. PHYSICAL EXAMINATION: V/S: Blood pressure 128/79, respiratory rate 20, heart rate 100, temperature 97.2, [id number] on 2 liters. HEENT: Normocephalic, atraumatic. Mucosa dry. Pallor positive. No icterus. NECK: Supple. No JVD, no carotid bruit. No lymphadenopathy. LUNGS: Decreased air entry, basilar crackles, expiratory wheezing. No rales or rhonchi. HEART: S1, S2 normal. No S3. No murmur, gallop or regurgitation. ABDOMEN: Soft, nontender. Bowel sounds active. No rigidity. No rebound or guarding. No CVA tenderness. EXTREMITIES: No pedal edema. No clubbing or cyanosis MUSCULOSKELETAL: No joint swelling. NEUROLOGIC: Awake, alert, but not oriented to time, place and person. No focal deficit. LYMPHATIC: No lymph nodes palpable. SKIN: Intact. LABS: Sodium 142, potassium 2.9, chloride 92, bicarb 41, BUN 57, creatinine 1.56 , white count 16.5, hemoglobin 12.5, hematocrit 38.1, platelet count 206. ASSESSMENT: 1. CHRONIC OBSTRUCTIVE PULMONARY DISEASE EXACERBATION 2. PNEUMONIA 3. ACUTE ON CHRONIC RENAL FAILURE 4. CHANGE IN MENTAL STATUS BECAUSE OF THE ALZHEIMER'S DEMENTIA 5. CORONARY ARTERY DISEASE 6. CONGESTIVE HEART FAILURE PLAN: 1. Continue Lasix drip. 2. Breathing treatments. 3. D5 normal saline. 4. Soft diet. 5. Eliquis twice daily. Poor prognosis being discussed with the family and they verbalized understanding. TIME SPENT: More than 35 minutes MTDD
--- NOTE | 2017-06-27 12:06 | PN ---
DATE OF SERVICE: 06/14/17 SUBJECTIVE: The patient is more awake and alert. Shortness of breath is present. The patient is getting the Lasix drip. Somewhat improvement seen, but the patient is still not getting any better despite the hospital stay so far. REVIEW OF SYSTEMS: CONSTITUTIONAL: No fever, no chills. HEENT: Normal. ENDOCRINE: No weight gain, no weight loss. CVS: No angina symptoms. No CHF symptoms. No palpitations. No atypical chest pain for CAD. Shortness of breath. No PND, no orthopnea. RESPIRATORY: No cough, no hemoptysis. GI: No nausea, no vomiting. No abdominal pain. : No hematuria. No polyuria. MUSCULOSKELETAL: No joint swelling. PSYCHIATRIC: Not anxious. No depression. No suicidal thoughts. No homicidal thoughts. SKIN: Intact. No rash. PHYSICAL EXAMINATION: V/S: Blood pressure 125/68, respiratory rate 22, heart rate 89, temperature 96.2 , saturation 99 on 4 liters. HEENT: Normocephalic, atraumatic. Mucosa dry. Pallor positive. No icterus. NECK: Supple. No JVD, no carotid bruit. No lymphadenopathy. LUNGS: Decreased basilar crackles. No rales or rhonchi. HEART: S1, S2 normal. No S3. No murmur, gallop or regurgitation. ABDOMEN: Soft, nontender. Bowel sounds active. No rigidity. No rebound or guarding. No CVA tenderness. EXTREMITIES: Dependent edema in the thighs and the hip area from lying in the bed. No clubbing or cyanosis MUSCULOSKELETAL: No joint swelling. NEUROLOGIC: Awake, alert. No focal deficit. LYMPHATIC: No lymph nodes palpable. SKIN: Intact. LABS: White count 16.79, hemoglobin 11.5, hematocrit 35.2, platelet count 198, BUN 60, creatinine 1.68, sodium 140, potassium 3.8, chloride 90, bicarb 39, glucose 180. The patient's BNP was 1027. ASSESSMENT: 1. ACUTE ON CHRONIC RENAL FAILURE 2. CHRONIC OBSTRUCTIVE PULMONARY DISEASE EXACERBATION SECONDARY TO PNEUMONIA 3. ACUTE ON CHRONIC HEART FAILURE 4. CORONARY ARTERY DISEASE 5. CONGESTIVE HEART FAILURE 6. ANEMIA 7. HYPOKALEMIA PLAN: 1. Continue Lasix drip, which did help initially but it seems like the patient status is right now stable and not responding. 2. Xopenex is three times daily. 3. No antibiotics at this time. 4. Blood thinner of Eliquis was given with atrial fibrillation history. Given the patient's age and no improvement of the condition for almost three to four days and the family does not want any aggressive management like hemodialysis or feeding tube placement, so we are going to offer them for the comfort measures because the patient's outcome is very poor given the patient's condition with her breathing with 4 liters in the 90's barely and constant distress with the breathing. TIME SPENT: More than 35 minutes MTDD
--- NOTE | 2017-06-27 13:09 | DS ---
DATE OF SERVICE: 06/15/17 FINAL DIAGNOSIS: 1. ACUTE ON CHRONIC RENAL FAILURE 2. ATRIAL FIBRILLATION WITH RVR 3. LEFT LOWER PNEUMONIA BEING TREATED WITH ANTIBIOTICS 4. CORONARY ARTERY DISEASE STATUS POST STENT 5. CONGESTIVE HEART FAILURE 6. ALZHEIMER'S DEMENTIA 7. CHRONIC OBSTRUCTIVE PULMONARY DISEASE 8. DIABETES 9. DYSLIPIDEMIA 10. HISTORY OF CHRONIC EDEMA, WHICH IS RESOLVED NOW 11. HYPERTENSION 12. CHRONIC KIDNEY DISEASE 13. HIATAL HERNIA 14. GASTROESOPHAGEAL REFLUX DISEASE 15. GOUT 16. OSTEOARTHRITIS 17. HYSTERECTOMY 18. VITAL SIGNS AT DISCHARGE: Temperature 96.5, pulse 78, respiratory rate 24, blood pressure 123/74 and saturation 90. PLAN: 1. Resume home medications. 2. Do not give Omnicef, Ventolin, Allopurinol, Vitamin D3, Ferrous sulfate, Advair, Prednisone or Zocor. 3. New medications: Haldol 2.5 mg twice daily Xopenex 1.25 mg one nebulizer three times daily Ativan 1 mg every 8 hours prn for agitation and restlessness Regular insulin for sliding scale. Accuchecks at /HS Zyprexa 2.5 mg twice daily Oxygen at 3 liters per nasal cannula to keep saturations greater than or equal to 91%. 4. Discharge to [facility] with [facility] services. 5. Dr. Mendoza will follow the patient during usual group home rounds. 6. Pulse oximetry prn. 7. Vital signs daily and prn. 8. Full liquid diet with aspiration precautions and advance if tolerated. DNR status. SMOKING: Current everyday smoker. HOSPITAL COURSE: Lois Guy came to the emergency room with shortness of breath, cough and congestion and found to have pneumonia and rapid atrial fibrillation for which the patient was admitted to the hospital. The patient's initial ABG was pH 7.43, PCO2 36.0, PO2 60. CT of the chest done in the emergency room which showed left lower pneumonia. She was started on the Rocephin and then Azactam was given. With the given treatment, the patient gradually started feeling better. Influenza was negative. For the atrial fibrillation, dig was given and the digoxin levels were calculated. The patient 's BUN and creatinine started getting worse from day three and day four and it went up to 82 and 89. With the fluid overload, creatinine went up 2.72. She was more short of breath. Repeat chest x-ray was done on June 05 which showed mild lower lobe airway thickening may represent bronchiolitis. BNP was 1027. With elevated BUN and creatinine and the congestive heart failure, the patient was started on the Lasix drip anticipating kidneys will open up. BUN fell from 89 to 69 and then 56 and 57, but again they started going up to 60 and 61. The patient was still short of breath and did have a considerable length of stay. The patient's prognosis was getting poor and poorer. Given her age and multiple medical problems, the patient's family was informed about sending the patient to the [facility] or [facility] for higher care like hemodialysis treatments, but the patient's son, who is Power of [employer] Legal Secretary, clearly said no for that. This option was discussed with the family over and over, but they never were positive about that and they just wanted to keep the patient here. They did not want anything emergency or aggressive done. The patient was eventually made a DNR then as the patient's condition was not getting progress, they decided for the Hospice care and finally on June 15 and then the patient was discharged back to the group home. TIME SPENT: MORE THAN 60 MINUTES NILDA
--- NOTE | 2017-06-27 13:27 | PN ---
DATE OF SERVICE: 06/15/17 SUBJECTIVE: The patient is more awake and alert. Since the Lasix drip has not been helping with BUN and creatinine function, we are doing to stop the Lasix drip. The patient did have some wheezing and coughing. REVIEW OF SYSTEMS: CONSTITUTIONAL: No fever, no chills. HEENT: Normal. ENDOCRINE: No weight gain, no weight loss. CVS: No angina symptoms. No CHF symptoms. No palpitations. No atypical chest pain for CAD. No shortness of breath. No PND, no orthopnea. RESPIRATORY: Cough and wheeze, no hemoptysis. GI: No nausea, no vomiting. No abdominal pain. : No hematuria. No polyuria. MUSCULOSKELETAL: No joint swelling. PSYCHIATRIC: Not anxious. No depression. No suicidal thoughts. No homicidal thoughts. SKIN: Intact. No rash. PHYSICAL EXAMINATION: GENERAL: Sick looking lady. V/S: Blood pressure 108/57, respiratory rate 24, heart rate 57, temperature 96.4 , saturation 93 on 4 liters. HEENT: Normocephalic, atraumatic. Mucosa dry. NECK: Supple. No JVD, no carotid bruit. No lymphadenopathy. LUNGS: Decreased air entry and bilateral wheezing is present. No rales or rhonchi. HEART: S1, S2 normal. No S3. No murmur, gallop or regurgitation. ABDOMEN: Soft, nontender. Bowel sounds active. No rigidity. No rebound or guarding. No CVA tenderness. EXTREMITIES: Pelvic area dependent edema is present. No clubbing or cyanosis MUSCULOSKELETAL: No joint swelling. NEUROLOGIC: Awake, alert. No focal deficit. LYMPHATIC: No lymph nodes palpable. SKIN: Intact. LABS: White count 16.22, hemoglobin 11.5, hematocrit 34.7, platelet count 198, sodium 135, potassium 3.6, chloride 89, bicarb 38, BUN 61, creatinine 1.66, glucose 186. ASSESSMENT: 1. ACUTE ON CHRONIC RENAL FAILURE 2. CHRONIC OBSTRUCTIVE PULMONARY DISEASE EXACERBATION SECONDARY TO THE BILATERAL PNEUMONIA, WHICH IS BETTER 3. ACUTE ON CHRONIC HEART FAILURE 4. FLUID OVERLOAD 5. DEPRESSION 6. ANXIETY 7. ALZHEIMER'S DEMENTIA WITH BEHAVIORAL CHANGES 8. ANEMIA 9. HYPOKALEMIA, WHICH IS BETTER PLAN: 1. Stop the Lasix drip. 2. Decrease the D5 normal to 30 ml per hour. 3. Continue the Prednisone. 4. We will discuss with the family about the options, as the patient's condition is not improving even with the lengthy hospital stay. We will be suggesting possible Hospice care as the patient's family does not want any aggressive management like transferring the patient to the or [facility] or starting the patient on the hemodialysis or getting the patient to see any referral doctors. TIME SPENT: More than 35 minutes NILDA
== END 2017-06-15 15:36 | DRG 682 ==
LOC: ED 10:47 → SCU 14:34
PROVIDERS: ADMIT Emergency Medicine; ATTEND Emergency Medicine
DX: N17.9 Acute kidney failure, unspecified (principal); J96.91 Respiratory failure, unspecified with hypoxia; J18.9 Pneumonia, unspecified organism; J44.1 Chronic obstructive pulmonary disease with (acute) exacerbation; I48.92 Unspecified atrial flutter; F02.81 Dementia in other diseases classified elsewhere, unspecified severity, with behavioral disturbance; F05 Delirium due to known physiological condition; E87.0 Hyperosmolality and hypernatremia; I50.9 Heart failure, unspecified; I48.0 Paroxysmal atrial fibrillation; I12.9 Hypertensive chronic kidney disease with stage 1 through stage 4 chronic kidney disease, or unspecified chronic kidney disease; E11.22 Type 2 diabetes mellitus with diabetic chronic kidney disease; N18.9 Chronic kidney disease, unspecified; G30.9 Alzheimer's disease, unspecified; I25.10 Atherosclerotic heart disease of native coronary artery without angina pectoris; E87.6 Hypokalemia; E87.70 Fluid overload, unspecified; E86.0 Dehydration; E78.5 Hyperlipidemia, unspecified; I10 Essential (primary) hypertension; K44.9 Diaphragmatic hernia without obstruction or gangrene; K21.9 Gastro-esophageal reflux disease without esophagitis; M10.9 Gout, unspecified; M19.90 Unspecified osteoarthritis, unspecified site; M47.9 Spondylosis, unspecified; I25.2 Old myocardial infarction; F17.210 Nicotine dependence, cigarettes, uncomplicated; Z79.01 Long term (current) use of anticoagulants; Z95.5 Presence of coronary angioplasty implant and graft; Z66 Do not resuscitate
CPT/HCPCS: 36415; 80053; 80162; 81001; 82550; 82553; 82803; 82962; 83605; 83880; 84145; 84443; 84484; 85025; 85379; 85610; 85730; 87040; 87081; 87086; 87502; 93005; 93010; 94640; 96361; 96365; 96368; 96375; 99284

== ENCOUNTER 2017-06-15 15:40 | Outpatient (CLI) | END 2017-06-15 15:48 | disposition home or self-care (01) | LOC: AMBL 15:40 | PROVIDERS: ATTEND Emergency Medicine | DX: R41.0 Disorientation, unspecified (principal); R47.81 Slurred speech; N19 Unspecified kidney failure; I48.91 Unspecified atrial fibrillation; J18.1 Lobar pneumonia, unspecified organism; Z99.81 Dependence on supplemental oxygen ==